=== PATIENT | female | born 1950 | race Caucasian/White ===

== ENCOUNTER 2019-03-24 18:38 | Emergency (ER) | payer OTHER, BC ==
--- NOTE | 2019-03-24 19:01 | ER ---
Nurse's Notes [facility] Name: Stefanie Schofield Age: 68 yrs Sex: Female : 1950 Arrival Date: 03/24/2019 Time: 18:40 Bed 24 Private MD: Diagnosis: Cerebral infarction;Aphasia following cerebral infarction;Type 2 diabetes mellitus;Essential (primary) hypertension Presentation: 03/24 18:41 Presenting complaint: Patient states: i cant remember Child states: on Thursday evening tw2 when she got off work at 10pm she seemed off, today she called me about 1pm and she was saying that she wasn't going to work, my daughter said she was down yesterday not perky, and then today at 5pm i went by there and she cant get her thought out, left cerebellar stroke 3 years ago. Transition of care: patient was not received from another setting of care. Onset of symptoms was March 24, 2019. Risk Assessment: Do you want to hurt yourself or someone else? Patient reports no desire to harm self or others. Initial Sepsis Screen: Does the patient meet any 2 criteria? No. Patient's initial sepsis screen is negative. Does the patient have a suspected source of infection? No. Patient's initial sepsis screen is negative. Care prior to arrival: None. 18:41 Method Of Arrival: Ambulatory tw2 18:41 Acuity: ALDO 2 tw2 18:53 Presenting complaint: Child states: to me her face looks different like her right side tw2 is swollen, i am going to call my daughter and see if she can give me more specifics on how she was today and when the difficult getting her words out started. and again her stroke 3 years ago did not present as your typical stroke. Triage Assessment: 18:44 General: Appears in no apparent distress. well groomed, Behavior is cooperative. Pain: tw2 Denies pain. Neuro: Reports "trouble getting my words out". Historical: - Allergies: 18:45 Codeine; tw2 - Home Meds: 18:45 Congress Thyroid 60 mg Oral tab daily [Active]; tw2 18:58 furosemide 40 mg Oral tab 1 tab 2 times per day [Active]; clonidine HCl 0.2 mg Oral tab tw2 1 tab 3 times per day [Active]; Prevacid 15 mg Oral cpDR 1 cap once daily [Active]; aspirin 81 mg Oral chew 1 tab once daily [Active]; glimepiride 4 mg Oral tab 1 tab once daily [Active]; gabapentin 300 mg oral cap 1 cap 3 times per day [Active]; lisinopril 40 mg Oral tab 1 tab once daily [Active]; atenolol 100 mg Oral tab 1 tab once daily [Active]; potassium chloride 10 mEq Oral cpER 1 cap once daily [Active]; diltiazem HCl 120 mg Oral CDER 1 cap once daily [Active]; - PMHx: 18:45 Back pain; Diabetes - NIDDM; Hypertension; tw2 - Immunization history:: Adult Immunizations. - Social history:: Smoking status: . - Ebola Screening: : Patient denies travel to an Ebola-affected area in the 21 days before illness onset. - Family history:: not pertinent. Screenin:55 Abuse screen: Denies threats or abuse. Nutritional screening: No deficits noted. tw2 Tuberculosis screening: No symptoms or risk factors identified. Fall Risk Secondary diagnosis (15 points) impaired mobility. 19:25 Patient has been NPO before screening. The patient is alert, able to follow commands. mg2 The patient exhibits slurred or garbled speech. The patient is exhibiting difficulty speaking. The patient does not exhibit difficulty understanding words. The patient is able to swallow own secretions with no drooling or need for suction. Patient tolerated one teaspoon of water. No drooling, immediate coughing, gurgling, or clearing of the throat was noted. The patient tolerated 90mL of water. No drooling, immediate coughing, gurgling, or clearing of the throat was noted. The patient passed the bedside swallow screening. Oral medications may be given as ordered. Contact Physician for further diet orders. Provider notified of bedside swallow screening results: Christiano Alex MD. Assessment: 18:49 Reassessment: pt transported to CT via stretcher with SHAWN Reynoso at this time. tw2 19:42 General: Appears in no apparent distress. comfortable, Behavior is calm, cooperative. mg2 Pain: Denies pain. Neuro: Level of Consciousness is awake, alert, obeys commands, Oriented to person, place, time, situation. Neuro: Liability Analyst are equal bilaterally Speech is slurred, with expressive aphasia noted, Facial droop on right, Intact. Cardiovascular: Capillary refill < 3 seconds Patient's skin is warm and dry. Respiratory: Airway is patent Respiratory effort is even, unlabored, Respiratory pattern is regular, symmetrical. GI: Reports diarrhea. : No signs and/or symptoms were reported regarding the genitourinary system. EENT: No signs and/or symptoms were reported regarding the EENT system. Derm: Skin is intact, is healthy with good turgor, Skin is pink, warm \\T\\ dry. normal. Musculoskeletal: Circulation, motion, and sensation intact. Capillary refill < 3 seconds. 19:52 Reassessment: patient sent to ct scan for ct angio via stretcher. mg2 20:15 Reassessment: Patient appears in no apparent distress at this time. Patient and/or mg2 family updated on plan of care and expected duration. Pain level reassessed. Patient is alert, oriented x 3, equal unlabored respirations, skin warm/dry/pink. 21:00 Reassessment: Patient appears in no apparent distress at this time. Patient and/or mg2 family updated on plan of care and expected duration. Pain level reassessed. Patient is alert, oriented x 3, equal unlabored respirations, skin warm/dry/pink. report given to SHAWN Regan of [facility] [id number]. transfer form signed by the daughter and informed about the waiting time of at least 3 hours for the ambulance to come and pick her up. Patient denies pain at this time. 21:52 Reassessment: Patient appears in no apparent distress at this time. Patient and/or mg2 family updated on plan of care and expected duration. Pain level reassessed. Patient is alert, oriented x 3, equal unlabored respirations, skin warm/dry/pink. Vital Signs: 18:43 BP 209 / 83; Pulse 68; Resp 17; Temp 98.1(O); Pulse Ox 100% on R/A; Weight 77.11 kg; tw2 Pain 0/10; 19:30 BP 199 / 81; Pulse 68; Resp 18; Pulse Ox 100% on R/A; mg2 20:47 BP 189 / 61; Pulse 67; Resp 18; Pulse Ox 100% on R/A; mg2 21:46 BP 197 / 65; Pulse 63; Resp 18; Temp 98(O); Pulse Ox 99% on R/A; Pain 0/10; mg2 NIH Stroke Scale Scores: 19:07 NIHSS Score: 2 rishabh 19:15 NIHSS Score: 3 mg2 19:43 NIHSS Score: 3 rishabh ED Course: 18:40 Patient arrived in ED. mr 18:43 Triage completed. tw2 18:44 Arm band placed on. tw2 18:45 Placed in gown. Bed in low position. Call light in reach. Adult w/ patient. tw2 18:51 Christiano Alex MD is Attending Physician. rishabh 18:57 CT Stroke Brain w/o Contrast Sent. tr5 19:00 Inserted saline lock: 20 gauge in right forearm, using aseptic technique. Blood mg2 collected. 19:03 EKG done, by ED staff, reviewed by Christiano Alex MD. Patient maintains SpO2 saturation jp3 greater than 95% on room air. 19:05 Carl Gomez, RN is Primary Nurse. mg2 19:05 XRAY Chest (1 view) Sent. tr5 19:12 Side rails up X 1. Side rails up X2. Verbal reassurance given. monitor car operator on. jp3 Pulse ox on. NIBP on. 19:43 No provider procedures requiring assistance completed. mg2 20:08 CT completed. Patient tolerated procedure well. Patient moved to CT via stretcher. eh Patient moved back from CT. 21:50 Report given to SHAWN Foster. mg2 21:50 Patient transferred, IV remains in place. mg2 Administered Medications: 19:14 Drug: NS 0.9% 1000 ml Route: IV; Rate: 1 bolus; Site: right antecubital; tr5 21:11 Follow up: Response: No adverse reaction; IV Status: Completed infusion; IV Intake: mg2 1000ml 19:15 Drug: foLIC Acid 1 mg Route: IVPB; Site: right antecubital; tr5 21:12 Follow up: Response: No adverse reaction; IV Status: Completed infusion mg2 19:27 Drug: Aspirin Chewable Tablet 162 mg Route: PO; tr5 21:11 Follow up: Response: No adverse reaction mg2 19:27 Drug: PlaVIX 75 mg Route: PO; tr5 21:11 Follow up: Response: No adverse reaction mg2 19:39 Drug: Insulin Regular Human 6 units {Co-Signature: mg2 (Carl Gomez RN).} Route: tr5 Sub-Q; Site: right upper arm; 21:09 Follow up: Response: No adverse reaction; Blood sugar is lowered mg2 19:40 Drug: Insulin Regular Human 5 units {Co-Signature: mg2 (Carl Gomez RN).} Route: tr5 IVP; Site: right antecubital; 21:10 Follow up: Response: No adverse reaction; Blood sugar is lowered mg2 21:10 Drug: NS 0.9% 1000 ml Route: IV; Rate: 125 ml/hr; Site: right forearm; mg2 21:45 Drug: Rocephin 1 grams Route: IV; Rate: per protocol; Site: right forearm; mg2 Intake: 21:11 IV: 1000ml; Total: 1000ml. mg2 Outcome: 19:01 ER care complete, transfer ordered by MD. [facility] 22:12 Transferred by [facility] to [facility], Transfer form completed. tr5 22:12 Condition: stable 22:12 Instructed on the need for transfer. 22:14 Patient left the ED. tr5 NIH Stroke Scale - NIH Stroke Score Date: 03/24/2019 Time: 19:07 Total Score = 2 1a. Level of Consciousness (LOC) - 0(Alert) 1b. Level of Consciousness (LOC) (Year \\T\\ Age) - 0(Both) 1c. LOC Commands (Open \\T\\ Closes Eyes/Gasser Machine Operator) - 0(Both) 2. Best Gaze (Lateral Gaze Paresis) - 0(Normal) 3. Visual Field Loss - 0(No visual loss) 4. Facial Palsy - 0(Normal) 5a. Left Arm: Motor (10-second hold) - 0(No drift) 5b. Right Arm: Motor (10-second hold) - 0(No drift) 6a. Left Leg: Motor (5-second hold - always test supine) - 0(No drift) 6b. Right Leg: Motor (5-second hold - always test supine) - 0(No drift) 7. Limb Ataxia (finger/nose \\T\\ heel/moore - test with eyes open) - 0(Absent) 8. Sensory Loss (pinprick arms/legs/face) - 0(Normal) 9. Best Language: Aphasia (description/naming/reading) - 1(Mild to moderate aphasia) 10. Dysarthria (speech clarity - read or repeat words) - 1(Mild to Moderate) 11. Extinction and Inattention (visual/tactile/auditory/spatial/personal) - 0(No abnormality) Initials: [facility] NIH Stroke Scale - NIH Stroke Score Date: 03/24/2019 Time: 19:15 Total Score = 3 1a. Level of Consciousness (LOC) - 0(Alert) 1b. Level of Consciousness (LOC) (Year \\T\\ Age) - 0(Both) 1c. LOC Commands (Open \\T\\ Closes Eyes/Gasser Machine Operator) - 0(Both) 2. Best Gaze (Lateral Gaze Paresis) - 0(Normal) 3. Visual Field Loss - 0(No visual loss) 4. Facial Palsy - 1(Minor Paralysis) 5a. Left Arm: Motor (10-second hold) - 0(No drift) 5b. Right Arm: Motor (10-second hold) - 0(No drift) 6a. Left Leg: Motor (5-second hold - always test supine) - 0(No drift) 6b. Right Leg: Motor (5-second hold - always test supine) - 0(No drift) 7. Limb Ataxia (finger/nose \\T\\ heel/moore - test with eyes open) - 0(Absent) 8. Sensory Loss (pinprick arms/legs/face) - 0(Normal) 9. Best Language: Aphasia (description/naming/reading) - 1(Mild to moderate aphasia) 10. Dysarthria (speech clarity - read or repeat words) - 1(Mild to Moderate) 11. Extinction and Inattention (visual/tactile/auditory/spatial/personal) - 0(No abnormality) [place] [facility] [place] Stroke Scale - NIH Stroke Score Date: 03/24/2019 Time: 19:43 Total Score = 3 1a. Level of Consciousness (LOC) - 0(Alert) 1b. Level of Consciousness (LOC) (Year \\T\\ Age) - 0(Both) 1c. LOC Commands (Open \\T\\ Closes Eyes/Gasser Machine Operator) - 0(Both) 2. Best Gaze (Lateral Gaze Paresis) - 0(Normal) 3. Visual Field Loss - 0(No visual loss) 4. Facial Palsy - 1(Minor Paralysis) 5a. Left Arm: Motor (10-second hold) - 0(No drift) 5b. Right Arm: Motor (10-second hold) - 0(No drift) 6a. Left Leg: Motor (5-second hold - always test supine) - 0(No drift) 6b. Right Leg: Motor (5-second hold - always test supine) - 0(No drift) 7. Limb Ataxia (finger/nose \\T\\ heel/moore - test with eyes open) - 0(Absent) 8. Sensory Loss (pinprick arms/legs/face) - 0(Normal) 9. Best Language: Aphasia (description/naming/reading) - 1(Mild to moderate aphasia) 10. Dysarthria (speech clarity - read or repeat words) - 1(Mild to Moderate) 11. Extinction and Inattention (visual/tactile/auditory/spatial/personal) - 0(No abnormality) Initials: [facility] Signatures: Christiano Alex MD MD cha Rivera, Louise mr Gay, Rosario Travis RN RN tw2 Carl Gomez RN RN mg2 Jaxon Vincent jp3 Cristian Salinas RN RN tr5 Carl Gomez RN mg2 Corrections: (The following items were deleted from the chart) 19:50 19:49 Patient has been NPO before screening. The patient is alert, able to mg2 follow commands. The patient exhibits slurred or garbled speech. The patient is exhibiting difficulty speaking. The patient does not exhibit difficulty understanding words. The patient is able to swallow own secretions with no drooling or need for suction. Patient tolerated one teaspoon of water. No drooling, immediate coughing, gurgling, or clearing of the throat was noted. The patient tolerated 90mL of water. No drooling, immediate coughing, gurgling, or clearing of the throat was noted. The patient passed the bedside swallow screening. Oral medications may be given as ordered. Contact Physician for further diet orders. Provider notified of bedside swallow screening results: Christiano Alex MD mg2
--- NOTE | 2019-03-24 19:02 | EDPHYS ---
Physician Documentation [facility] Name: Stefanie Schofield Age: 68 yrs Sex: Female : 1950 Arrival Date: 03/24/2019 Time: 18:40 Bed 24 Private MD: ED Physician Christiano Alex HPI: 03/24 18:55 This 68 yrs old Female presents to ER via Ambulatory with complaints of rishabh Trouble Talking. 18:55 The patient presents to the emergency department with a speech or higher order brain rishabh function problem, aphasia. Onset: The symptoms/episode began/occurred 4 day(s) ago. Context: occurred at an unknown location. Associated signs and symptoms: The patient has no apparent associated signs or symptoms. Severity of symptoms: At their worst the symptoms were moderate in the emergency department the symptoms are unchanged. Patient's baseline: Neuro: alert and fully oriented. The patient has not experienced similar symptoms in the past. Historical: - Allergies: 18:45 Codeine; tw2 - Home Meds: 18:45 [place] Thyroid 60 mg Oral tab daily [Active]; tw2 18:58 furosemide 40 mg Oral tab 1 tab 2 times per day [Active]; clonidine HCl 0.2 mg Oral tab tw2 1 tab 3 times per day [Active]; Prevacid 15 mg Oral cpDR 1 cap once daily [Active]; aspirin 81 mg Oral chew 1 tab once daily [Active]; glimepiride 4 mg Oral tab 1 tab once daily [Active]; gabapentin 300 mg oral cap 1 cap 3 times per day [Active]; lisinopril 40 mg Oral tab 1 tab once daily [Active]; atenolol 100 mg Oral tab 1 tab once daily [Active]; potassium chloride 10 mEq Oral cpER 1 cap once daily [Active]; diltiazem HCl 120 mg Oral CDER 1 cap once daily [Active]; - PMHx: 18:45 Back pain; Diabetes - NIDDM; Hypertension; tw2 - Immunization history:: Adult Immunizations. - Social history:: Smoking status: . - Ebola Screening: : Patient denies travel to an Ebola-affected area in the 21 days before illness onset. - Family history:: not pertinent. ROS: 18:55 Constitutional: Negative for fever, chills, and weight loss, Eyes: Negative for injury, rishabh pain, redness, and discharge, ENT: Negative for injury, pain, and discharge, Neck: Negative for injury, pain, and swelling, Cardiovascular: Negative for chest pain, palpitations, and edema, Respiratory: Negative for shortness of breath, cough, wheezing, and pleuritic chest pain, Abdomen/GI: Negative for abdominal pain, nausea, vomiting, diarrhea, and constipation, Back: Negative for injury and pain, : Negative for injury, bleeding, discharge, and swelling, MS/Extremity: Negative for injury and deformity, Skin: Negative for injury, rash, and discoloration, Psych: Negative for depression, anxiety, suicide ideation, homicidal ideation, and hallucinations, Allergy/Immunology: Negative for hives, rash, and allergies, Endocrine: Negative for neck swelling, polydipsia, polyuria, polyphagia, and marked weight changes, Hematologic/Lymphatic: Negative for swollen nodes, abnormal bleeding, and unusual bruising. 18:55 Neuro: Positive for speech changes. Exam: 18:55 Constitutional: This is a well developed, well nourished patient who is awake, alert, rishabh and in no acute distress. Head/Face: Normocephalic, atraumatic. Eyes: Pupils equal round and reactive to light, extra-ocular motions intact. Lids and lashes normal. Conjunctiva and sclera are non-icteric and not injected. Cornea within normal limits. Periorbital areas with no swelling, redness, or edema. ENT: Nares patent. No nasal discharge, no septal abnormalities noted. Tympanic membranes are normal and external auditory canals are clear. Oropharynx with no redness, swelling, or masses, exudates, or evidence of obstruction, uvula midline. Mucous membranes moist. Neck: Trachea midline, no thyromegaly or masses palpated, and no cervical lymphadenopathy. Supple, full range of motion without nuchal rigidity, or vertebral point tenderness. No Meningismus. Chest/axilla: Normal chest wall appearance and motion. Nontender with no deformity. No lesions are appreciated. Cardiovascular: Regular rate and rhythm with a normal S1 and S2. No gallops, murmurs, or rubs. Normal PMI, no JVD. No pulse deficits. Respiratory: Lungs have equal breath sounds bilaterally, clear to auscultation and percussion. No rales, rhonchi or wheezes noted. No increased work of breathing, no retractions or nasal flaring. Abdomen/GI: Soft, non-tender, with normal bowel sounds. No distension or tympany. No guarding or rebound. No evidence of tenderness throughout. Back: No spinal tenderness. No costovertebral tenderness. Full range of motion. Female : Normal external genitalia. Skin: Warm, dry with normal turgor. Normal color with no rashes, no lesions, and no evidence of cellulitis. MS/ Extremity: Pulses equal, no cyanosis. Neurovascular intact. Full, normal range of motion. Psych: Awake, alert, with orientation to person, place and time. Behavior, mood, and affect are within normal limits. 18:55 Neuro: Orientation: is normal, appropriate for stated age, no acute changes, Mentation: is normal, appropriate for stated age, no acute changes, Memory: is normal, appropriate for stated age, no acute changes, Cranial nerves: grossly normal, is grossly normal based on the patient's age, no acute changes, Cerebellar function: is grossly normal, is grossly normal based on the patient's age, Motor: is normal, is grossly normal based on the patient's age, no acute changes, moves all fours, Sensation: is normal, Gait: not applicable seizure activity, is not displayed by the patient. Vital Signs: 18:43 BP 209 / 83; Pulse 68; Resp 17; Temp 98.1(O); Pulse Ox 100% on R/A; Weight 77.11 kg; tw2 Pain 0/10; 19:30 BP 199 / 81; Pulse 68; Resp 18; Pulse Ox 100% on R/A; mg2 20:47 BP 189 / 61; Pulse 67; Resp 18; Pulse Ox 100% on R/A; mg2 21:46 BP 197 / 65; Pulse 63; Resp 18; Temp 98(O); Pulse Ox 99% on R/A; Pain 0/10; mg2 NIH Stroke Scale Scores: 19:07 NIHSS Score: 2 rishabh 19:15 NIHSS Score: 3 mg2 19:43 NIHSS Score: 3 rishabh MDM: 18:53 Patient medically screened. rishabh 18:58 Data reviewed: vital signs, nurses notes, lab test result(s), EKG, radiologic studies, rishabh CT scan, strok symptoms begn Thursday, worse today. 19:44 ED course: neuro md at [facility], no tpa,window greater than 2 days. [facility] 03/24 18:52 Order name: Basic Metabolic Panel [facility] 03/24 18:52 Order name: CBC with Diff [facility] 03/24 18:52 Order name: LFT's [facility] 03/24 18:52 Order name: Magnesium [facility] 03/24 18:52 Order name: NT PRO-BNP [facility] 03/24 18:52 Order name: PT-INR [facility] 03/24 18:52 Order name: Troponin (emerg Dept Use Only) [facility] 03/24 18:52 Order name: Ptt, Activated [facility] 03/24 19:12 Order name: CBC with Automated Diff; Complete Time: 19:16 [facility] 03/24 19:16 Order name: Glucose, Ancillary Testing; Complete Time: 19:16 [facility] 03/24 19:22 Order name: Protime (+INR); Complete Time: 19:23 [facility] 03/24 19:22 Order name: PTT, Activated Partial Thromb; Complete Time: 19:23 [facility] 03/24 19:30 Order name: Basic Metabolic Panel; Complete Time: 19:34 [facility] 03/24 19:30 Order name: Liver (Hepatic) Function; Complete Time: 19:34 [facility] 03/24 18:52 Order name: XRAY Chest (1 view) [facility] 03/24 18:52 Order name: CT Stroke Brain w/o Contrast [facility] 03/24 19:19 Order name: CT; Complete Time: 19:21 [facility] 03/24 19:30 Order name: Troponin (Emerg Dept Use Only); Complete Time: 19:34 [facility] 03/24 19:30 Order name: NT PRO-BNP; Complete Time: 19:34 [facility] 03/24 19:30 Order name: Magnesium; Complete Time: 19:34 [facility] 03/24 19:36 Order name: CT Head Angio [facility] 03/24 19:43 Order name: RAD; Complete Time: 19:57 [facility] 03/24 20:06 Order name: Urine Culture [facility] 03/24 20:42 Order name: CT [facility] 03/24 21:01 Order name: Glucose, Ancillary Testing [facility] 03/24 18:52 Order name: EKG; Complete Time: 18:54 [facility] 03/24 18:52 Order name: Cardiac monitoring; Complete Time: 19:05 [facility] 03/24 18:52 Order name: EKG - Nurse/Tech; Complete Time: 19:04 [facility] 03/24 18:52 Order name: IV Saline Lock; Complete Time: 19:05 [facility] 03/24 18:52 Order name: Labs collected and sent; Complete Time: 19:05 [facility] 03/24 18:52 Order name: O2 Per Protocol; Complete Time: 19:05 [facility] 03/24 18:52 Order name: O2 Sat Monitoring; Complete Time: 19:05 [facility] 03/24 18:52 Order name: Accucheck; Complete Time: 19:04 [facility] 03/24 18:52 Order name: NPO; Complete Time: 19:04 [facility] 03/24 18:52 Order name: Stroke Swallow Screen; Complete Time: 19:15 [facility] Administered Medications: 19:14 Drug: NS 0.9% 1000 ml Route: IV; Rate: 1 bolus; Site: right antecubital; tr5 21:11 Follow up: Response: No adverse reaction; IV Status: Completed infusion; IV Intake: mg2 1000ml 19:15 Drug: foLIC Acid 1 mg Route: IVPB; Site: right antecubital; tr5 21:12 Follow up: Response: No adverse reaction; IV Status: Completed infusion mg2 19:27 Drug: Aspirin Chewable Tablet 162 mg Route: PO; tr5 21:11 Follow up: Response: No adverse reaction mg2 19:27 Drug: PlaVIX 75 mg Route: PO; tr5 21:11 Follow up: Response: No adverse reaction mg2 19:39 Drug: Insulin Regular Human 6 units {Co-Signature: mg2 (Carl Gomez RN).} Route: tr5 Sub-Q; Site: right upper arm; 21:09 Follow up: Response: No adverse reaction; Blood sugar is lowered mg2 19:40 Drug: Insulin Regular Human 5 units {Co-Signature: mg2 (Carl Gomez RN).} Route: tr5 IVP; Site: right antecubital; 21:10 Follow up: Response: No adverse reaction; Blood sugar is lowered mg2 21:10 Drug: NS 0.9% 1000 ml Route: IV; Rate: 125 ml/hr; Site: right forearm; mg2 21:45 Drug: Rocephin 1 grams Route: IV; Rate: per protocol; Site: right forearm; mg2 Disposition: 03/24/19 19:01 Transfer ordered to [facility]. Diagnosis are Cerebral infarction, Aphasia following cerebral infarction, Type 2 diabetes mellitus, Essential (primary) hypertension. - Reason for transfer: Higher level of care. - Accepting physician is to [facility], stroke team. - Condition is Stable. - Problem is new. - Symptoms have improved. NIH Stroke Scale - NIH Stroke Score Date: 03/24/2019 Time: 19:07 Total Score = 2 1a. Level of Consciousness (LOC) - 0(Alert) 1b. Level of Consciousness (LOC) (Year \T\ Age) - 0(Both) 1c. LOC Commands (Open \T\ Closes Eyes/Customer Assistant) - 0(Both) 2. Best Gaze (Lateral Gaze Paresis) - 0(Normal) 3. Visual Field Loss - 0(No visual loss) 4. Facial Palsy - 0(Normal) 5a. Left Arm: Motor (10-second hold) - 0(No drift) 5b. Right Arm: Motor (10-second hold) - 0(No drift) 6a. Left Leg: Motor (5-second hold - always test supine) - 0(No drift) 6b. Right Leg: Motor (5-second hold - always test supine) - 0(No drift) 7. Limb Ataxia (finger/nose \T\ heel/moore - test with eyes open) - 0(Absent) 8. Sensory Loss (pinprick arms/legs/face) - 0(Normal) 9. Best Language: Aphasia (description/naming/reading) - 1(Mild to moderate aphasia) 10. Dysarthria (speech clarity - read or repeat words) - 1(Mild to Moderate) 11. Extinction and Inattention (visual/tactile/auditory/spatial/personal) - 0(No abnormality) Initials: [facility] NIH Stroke Scale - NIH Stroke Score Date: 03/24/2019 Time: 19:15 Total Score = 3 1a. Level of Consciousness (LOC) - 0(Alert) 1b. Level of Consciousness (LOC) (Year \T\ Age) - 0(Both) 1c. LOC Commands (Open \T\ Closes Eyes/Customer Assistant) - 0(Both) 2. Best Gaze (Lateral Gaze Paresis) - 0(Normal) 3. Visual Field Loss - 0(No visual loss) 4. Facial Palsy - 1(Minor Paralysis) 5a. Left Arm: Motor (10-second hold) - 0(No drift) 5b. Right Arm: Motor (10-second hold) - 0(No drift) 6a. Left Leg: Motor (5-second hold - always test supine) - 0(No drift) 6b. Right Leg: Motor (5-second hold - always test supine) - 0(No drift) 7. Limb Ataxia (finger/nose \T\ heel/moore - test with eyes open) - 0(Absent) 8. Sensory Loss (pinprick arms/legs/face) - 0(Normal) 9. Best Language: Aphasia (description/naming/reading) - 1(Mild to moderate aphasia) 10. Dysarthria (speech clarity - read or repeat words) - 1(Mild to Moderate) 11. Extinction and Inattention (visual/tactile/auditory/spatial/personal) - 0(No abnormality) Initials: mg2 NIH Stroke Scale - NIH Stroke Score Date: 03/24/2019 Time: 19:43 Total Score = 3 1a. Level of Consciousness (LOC) - 0(Alert) 1b. Level of Consciousness (LOC) (Year \T\ Age) - 0(Both) 1c. LOC Commands (Open \T\ Closes Eyes/Customer Assistant) - 0(Both) 2. Best Gaze (Lateral Gaze Paresis) - 0(Normal) 3. Visual Field Loss - 0(No visual loss) 4. Facial Palsy - 1(Minor Paralysis) 5a. Left Arm: Motor (10-second hold) - 0(No drift) 5b. Right Arm: Motor (10-second hold) - 0(No drift) 6a. Left Leg: Motor (5-second hold - always test supine) - 0(No drift) 6b. Right Leg: Motor (5-second hold - always test supine) - 0(No drift) 7. Limb Ataxia (finger/nose \T\ heel/moore - test with eyes open) - 0(Absent) 8. Sensory Loss (pinprick arms/legs/face) - 0(Normal) 9. Best Language: Aphasia (description/naming/reading) - 1(Mild to moderate aphasia) 10. Dysarthria (speech clarity - read or repeat words) - 1(Mild to Moderate) 11. Extinction and Inattention (visual/tactile/auditory/spatial/personal) - 0(No abnormality) Initials: rishabh Signatures: Dispatcher [employer] EDChristiano Mack MD MD cha Wise, Tara RN RN tw2 Carl Gomez RN RN mg2 Cristian Salinas RN RN tr5 Carl Gomez RN mg2 Corrections: (The following items were deleted from the chart) 19:18 19:01 03/24/2019 19:01 Transfer ordered to [facility]. rishabh Diagnosis is Cerebral infarction; Aphasia following cerebral infarction. Reason for transfer: Higher level of care. Accepting physician is to [facility], stroke team. Condition is Stable. Problem is new. Symptoms have improved. rishabh 19:18 19:18 03/24/2019 19:01 Transfer ordered to [facility]. rishabh Diagnosis is Cerebral infarction; Aphasia following cerebral infarction; Type 2 diabetes mellitus. Reason for transfer: Higher level of care. Accepting physician is to [facility], stroke team. Condition is Stable. Problem is new. Symptoms have improved. rishabh 22:14 19:18 03/24/2019 19:01 Transfer ordered to [facility]. tr5 Diagnosis is Cerebral infarction; Aphasia following cerebral infarction; Type 2 diabetes mellitus; Essential (primary) hypertension. Reason for transfer: Higher level of care. Accepting physician is to [facility], stroke team. Condition is Stable. Problem is new. Symptoms have improved. rishabh
[2019-03-24] MEDS ORDERED: FOLIC ACID 5 MG/ML VIAL ONE (19:10)
[2019-03-24] MEDS ORDERED: NA CHLORIDE 0.9% 1,000 ML ONE (19:10)
[2019-03-24 19:11] LABS: Absolute Lymphocytes (CBC) 1.7 K/uL (0.7-4.9); Basophils % 0.5 % (0-1.3); Hematocrit 46.9 % (36.0-45.0); Lymphocytes % 17.3 % (15.3-44.8); MPV 11.4 fL (7.6-11.3); RBC Red Blood Cell Count 5.12 M/uL (3.86-4.86)
--- NOTE | 2019-03-24 19:12 | RAD REPORT ---
EXAM DESCRIPTION: CT - Ct Stroke Brain Wo Cont - 03/24/2019 6:58 pm CLINICAL HISTORY: Confusion/ dizziness COMPARISON: 2016 TECHNIQUE: Computed axial tomography of the head was obtained. All CT scans are performed using dose optimization technique as appropriate and may include automated exposure control or mA/KV adjustment according to patient size. FINDINGS: An intracranial bleed is not seen . The ventricles are normal in caliber. No extra-axial fluid collection is noted. A 4.2 centimeter low-density area within the left cerebellum compatible with old infarction. 2.5 centimeter low-density areas present within the left frontal lobe/anterior left basal ganglia Fluid within the sinuses/ mastoids is not seen. IMPRESSION: 2.5 centimeter low-density area is present within the left frontal lobe/anterior left ba yuly ganglia compatible with infarction. It could be subacute or chronic. Old left cerebellar infarct Doctor Alex of the emergency room was notified at 658 p.m. March 24, 2019
[2019-03-24] MEDS ORDERED: ASPIRIN 81 MG CHEWABLE TABLET ONE (19:18)
[2019-03-24 19:19] LABS: Protime INR 1.05
[2019-03-24] MEDS ORDERED: CLOPIDOGREL 75 MG TABLET ONE (19:19)
[2019-03-24 19:29] LABS: ALT/SGPT 23 U/L (12-78); AST/SGOT 14 U/L (15-37); Albumin 3.1 g/dL (3.4-5.0); Alkaline Phosphatase 118 U/L (45-117); BUN Blood Urea Nitrogen 11 mg/dL (7-18); Bicarbonate 24 mmol/L (21-32); Bilirubin Direct 0.1 mg/dL (0-0.2); Bilirubin Total 0.5 mg/dL (0.2-1.0); Glucose Level 356 mg/dL (74-106); Magnesium 2.1 mg/dL (1.8-2.4); NT PRO-BNP 701 pg/mL (<125); Protein, Total 6.1 g/dL (6.4-8.2); Sodium Level 139 mmol/L (136-145); Troponin (Emerg Dept Use Only) < 0.02 ng/mL (0.0-0.045)
[2019-03-24] MEDS ORDERED: INSULIN -REGULAR HUMAN 50 UNIT/0.5 ML ML ONE (19:33)
--- NOTE | 2019-03-24 19:41 | RAD REPORT ---
EXAM DESCRIPTION: Brayan Single View03/24/2019 7:16 pm CLINICAL HISTORY: cough COMPARISON: 2016 FINDINGS: The lungs appear clear of acute infiltrate. The heart is normal size IMPRESSION: No acute abnormalities displayed
--- NOTE | 2019-03-24 20:40 | RAD REPORT ---
EXAM DESCRIPTION: CTHead angio03/24/2019 8:11 pm CLINICAL HISTORY: Slurred speech COMPARISON: None TECHNIQUE: CT angiogram of the head was obtained. 3D MIPS reconstruction performed. All CT scans are performed using dose optimization technique as appropriate and may include automated exposure control or mA/KV adjustment according to patient size. FINDINGS: Moderate narrowing involves the P1 segment of the left posterior cerebral artery which is chronic The distal aspect of the left vertebral artery is small. Calcified plaque results in moderate narrowing of the cavernous portion of the right carotid artery. Proximal to this within the cavernous portion of the right internal carotid artery is a another area marked narrowing. Moderate narrowing involves the distal right internal carotid artery The basilar, left internal carotid, right posterior cerebral, bilateral anterior cerebral and bilater al middle cerebral arteries do not demonstrate a significant stenosis. An aneurysm is not noted IMPRESSION: Marked narrowing involves the cavernous portion of the right internal carotid artery
[2019-03-24] MEDS ORDERED: CEFTRIAXONE/SWI 1gm 1 GM/10 ML SYR ONE (21:43)
[2019-03-25 05:23] VITALS: BP 197/65; TEMP 98; O2SAT 99
--- NOTE | 2019-03-25 09:40 | EKG ---
Test Date: 2019-03-24 Test Time: 19:01:55 Field Manager: KESHIA MEASUREMENT RESULTS: Intervals: Rate: 64 IL: 158 QRSD: 136 QT: 472 QTc: 486 [place]: P: 54 IL: 158 QRS: 40 T: 50 INTERPRETIVE STATEMENTS: Normal sinus rhythm Right bundle branch block Abnormal ECG Compared to ECG 04/25/2016 20:14:27 No significant changes Electronically Signed On 03-25-19 09:39:37 [employer] by Ruddy Estrada
== END 2019-03-24 22:14 | disposition short-term general hospital (02) ==
LOC: ER 18:38
DX: I63.9 Cerebral infarction, unspecified (principal); R47.01 Aphasia; I10 Essential (primary) hypertension; R29.702 NIHSS score 2; E11.9 Type 2 diabetes mellitus without complications; Z79.82 Long term (current) use of aspirin; Z88.5 Allergy status to narcotic agent
CPT/HCPCS: 96365; 93005; 85025; 80048; 36415; 83735; 85610; 82947 ×2; 80076; 85730; 84484; 83880; 70496; 70450; 71045; 96375; 96372; 99285; 96366; Q9967; J0696; J7030

== ENCOUNTER 2019-10-04 15:31 | Emergency (ER) | payer OTHER, BC ==
[2019-10-04 17:26] LABS: Absolute Lymphocytes (CBC) 2.3 K/uL (0.7-4.9); Hematocrit 45.1 % (36.0-45.0); Lymphocytes % 30.5 % (15.3-44.8); MPV 11.4 fL (7.6-11.3)
[2019-10-04 17:45] LABS: ALT/SGPT 21 U/L (12-78); AST/SGOT 12 U/L (15-37); Albumin 3.2 g/dL (3.4-5.0); Alkaline Phosphatase 102 U/L (45-117); BUN Blood Urea Nitrogen 19 mg/dL (7-18); Bicarbonate 27 mmol/L (21-32); Bilirubin Direct < 0.1 mg/dL (0-0.2); Bilirubin Total 0.4 mg/dL (0.2-1.0); Glucose Level 151 mg/dL (74-106); Lipase 124 U/L (73-393); Potassium 4.2 mmol/L (3.5-5.1); Protein, Total 6.5 g/dL (6.4-8.2); Sodium Level 141 mmol/L (136-145)
[2019-10-04 18:00] LABS: Urine Bacteria <20 /HPF (<20); Urine Culture Reflex Order REFLEXED; Urine RBC <5 /HPF (NONE SEEN)
--- NOTE | 2019-10-04 18:23 | RAD REPORT ---
EXAM DESCRIPTION: CT - Abdomen Pelvis W Contrast - 10/04/2019 6:05 pm CLINICAL HISTORY: ABD PAIN COMPARISON: No comparisons TECHNIQUE: Biphasic, helical CT imaging of the abdomen and pelvis was performed following 100 ml non -ionic IV contrast. No oral contrast given. All CT scans are performed using dose optimization technique as appropriate and may include automated exposure control or mA/KV adjustment according to patient size. FINDINGS: No suspicious findings in the lung bases. The liver, spleen, and pancreas show no suspicious findings. Cholecystectomy clips are present. No bi liary tree dilatation. Small benign-appearing cysts are present in the liver parenchyma. Symmetric renal function is seen with no hydronephrosis or suspicious renal mass. No pyelonephritis o r acute parenchymal process. Small renal cysts are present. Right adrenal gland is negative. Left adr enal gland contains a 16 millimeter mass. This does not meet adrenal adenoma criteria but is still th e most likely etiology. No urinary bladder abnormality. Uterus is absent. Ovaries are absent or atrophic. No adnexal mass. No dilated bowel loops or bowel wall thickening. Patient has a minimal hiatal hernia. No evidence for appendicitis. Appendix is not clearly seen and may be absent. You small mesenteric lymph nodes are p resent. No free air, free fluid or inflammatory stranding. No hernia, mass or bulky lymphadenopathy. Disc and bone degenerative changes are present. Posterior decompression changes are present L4-5. Andria tral canal detail is inherently limited. IMPRESSION: Contrast-enhanced CT abdomen and pelvis imaging shows no acute or emergent finding. An incidental 16 millimeter left adrenal mass is present. This is most likely an adenoma but does not meet the strict diagnostic criteria. In the absence of any malignancy history or significant clinica l history, this can be re-evaluated with CT imaging in 12 months.
--- NOTE | 2019-10-04 18:52 | EDPHYS ---
Physician Documentation [facility] Name: Stefanie Schofield Age: 68 yrs Sex: Female : 1950 Arrival Date: 10/04/2019 Time: 15:38 Bed 26 Private MD: ED Physician Vinh Camacho HPI: 10/03 16:48 This 68 yrs old Female presents to ER via Ambulatory with complaints of pm1 Abdominal Pain. 16:48 The patient presents with abdominal pain in the lower abdomen. Onset: The pm1 symptoms/episode began/occurred 2 month(s) ago. The symptoms do not radiate. Associated signs and symptoms: Pertinent negatives: nausea, vomiting, and diarrhea, chest pain, constipation, dysuria, fever, shortness of breath. The symptoms are described as tightness to lower abdomen, " like pants on to tight". Modifying factors: The symptoms are alleviated by nothing, the symptoms are aggravated by nothing. The patient has not recently seen a physician, due to covid. Patient reports onset of abdominal pain after she was reaching for her cat on July 26. Patient reports history of chronic back pain and has numbness sensation to bilateral anterior hip area due to back pain. After reaching out for her cat she noticed that the pain started to migrate towards her suprapubic area. Patient without any incontinence of bowel or bladder and is able to ambulate. Historical: - Allergies: 15:50 Codeine; tw2 - Home Meds: 15:50 [place] Thyroid 60 mg Oral tab daily [Active]; aspirin 81 mg Oral chew 1 tab once daily tw2 [Active]; atenolol 100 mg Oral tab 1 tab once daily [Active]; clonidine HCl 0.2 mg Oral tab 1 tab 3 times per day [Active]; diltiazem HCl 120 mg Oral CDER 1 cap once daily [Active]; gabapentin 300 mg Oral cap 1 cap 3 times per day [Active]; Prevacid 15 mg Oral cpDR 1 cap once daily [Active]; lisinopril 40 mg Oral tab 1 tab once daily [Active]; potassium chloride 10 mEq Oral cpER 1 cap once daily [Active]; glimepiride 4 mg Oral tab 1 tab once daily [Active]; furosemide 40 mg Oral tab 1 tab 2 times per day [Active]; - PMHx: 15:50 Diabetes - NIDDM; Hypertension; Back pain; CVA; Feb 2019; tw2 - PSHx: 15:50 Hysterectomy; tw2 15:51 Cholecystectomy; tw2 - Immunization history:: Adult Immunizations. - Social history:: Smoking status: . ROS: 16:48 Constitutional: Negative for fever, chills, and weight loss, Neck: Negative for injury, pm1 pain, and swelling, Cardiovascular: Negative for chest pain, palpitations, and edema, Respiratory: Negative for shortness of breath, cough, wheezing, and pleuritic chest pain. 16:48 : Negative for injury, bleeding, discharge, and swelling, MS/Extremity: Negative for injury and deformity, Skin: Negative for injury, rash, and discoloration, Neuro: Negative for headache, weakness, numbness, tingling, and seizure. 16:48 Abdomen/GI: Positive for abdominal pain, of the suprapubic area, Negative for nausea, vomiting, and diarrhea. 16:48 Back: Positive for of the lumbar area, chronic pain. Exam: 16:48 Constitutional: This is a well developed, well nourished patient who is awake, alert, pm1 and in no acute distress. Head/Face: Normocephalic, atraumatic. Neck: Trachea midline, no thyromegaly or masses palpated, and no cervical lymphadenopathy. Supple, full range of motion without nuchal rigidity, or vertebral point tenderness. No Meningismus. Chest/axilla: Normal chest wall appearance and motion. Nontender with no deformity. No lesions are appreciated. 16:48 Back: No spinal tenderness. No costovertebral tenderness. Full range of motion. Skin: Warm, dry with normal turgor. Normal color with no rashes, no lesions, and no evidence of cellulitis. MS/ Extremity: Pulses equal, no cyanosis. Neurovascular intact. Full, normal range of motion. 16:48 Cardiovascular: Exam negative for acute changes, Rate: normal, Rhythm: regular, Pulses: no pulse deficits are appreciated. 16:48 Respiratory: Exam negative for acute changes, respiratory distress, shortness of breath. 16:48 Abdomen/GI: Inspection: abdomen appears normal, Palpation: soft, in all quadrants, mild abdominal tenderness, in the suprapubic area, mass, is not appreciated, rebound tenderness, is not appreciated. 16:48 Neuro: Exam negative for acute changes, Orientation: is normal, Motor: is normal, moves all fours, Sensation: is normal, no obvious gross deficits. Vital Signs: 15:46 BP 192 / 58; Pulse 55; Resp 17; Temp 99.1(TE); Pulse Ox 100% on R/A; Weight 81.65 kg tw2 (R); Height 5 ft. 7 in. (170.18 cm); Pain 3/10; 16:48 BP 192 / 63; Resp 20; Pulse Ox 100% ; da2 19:15 BP 169 / 105; Pulse 60; Resp 18; Pulse Ox 99% on R/A; wh 15:46 Body Mass Index 28.19 (81.65 kg, 170.18 cm) tw2 MDM: 16:28 Patient medically screened. pm1 18:50 Data reviewed: vital signs. Data interpreted: Pulse oximetry: on room air is 100 %. pm1 Interpretation: normal. Counseling: I had a detailed discussion with the patient and/or guardian regarding: the historical points, exam findings, and any diagnostic results supporting the discharge/admit diagnosis, lab results, radiology results, the need for outpatient follow up, to return to the emergency department if symptoms worsen or persist or if there are any questions or concerns that arise at home. 10/03 16:36 Order name: Urine Dipstick--Ancillary (enter results) bd 10/03 16:38 Order name: Basic Metabolic Panel; Complete Time: 18:29 pm1 10/03 16:38 Order name: CBC with Diff; Complete Time: 17:33 pm1 10/03 16:38 Order name: Hepatic Function; Complete Time: 18:29 pm1 10/03 16:38 Order name: Lipase; Complete Time: 18:29 pm1 10/03 16:38 Order name: Urine Microscopic Only; Complete Time: 18:29 pm1 10/03 16:38 Order name: IV Saline Lock; Complete Time: 17:18 pm1 10/03 16:38 Order name: Labs collected and sent; Complete Time: 17:18 pm1 10/03 16:38 Order name: CT Abd/Pelvis - IV Contrast Only; Complete Time: 18:44 pm1 10/03 18:04 Order name: Urine Culture EDMS Administered Medications: 19:09 Not Given (Physician Discretion): Rocephin 1 grams IV at calculated rate once; Given wh slow IV push per pharmacy instructions 19:26 Drug: Rocephin (cefTRIAXone) 1 grams Route: IM; Site: right gluteus; wh 19:36 Follow up: Response: No adverse reaction Disposition: 10/04 13:13 Co-signature as Attending Physician, Vinh Camacho MD I agree with the assessment and kdr plan of care. Disposition: 10/04/19 18:51 Discharged to Home. Impression: Unspecified abdominal pain, Urinary tract infection, site not specified. - Condition is Stable. - Discharge Instructions: Abdominal Pain, Adult, Urinary Tract Infection, Adult. - Prescriptions for Macrobid 100 mg Oral Capsule - take 1 capsule by ORAL route every 12 hours for 10 days; 20 capsule. - Medication Reconciliation Form, Thank You Letter, Antibiotic Education, Prescription Opioid Use form. - Follow up: Emergency Department; When: As needed; Reason: Worsening of condition. Follow up: Private Physician; When: 2 - 3 days; Reason: Recheck today's complaints, Continuance of care, Re-evaluation by your physician. - Problem is new. - Symptoms have improved. Signatures: Dispatcher [employer] EDMS Vinh Camacho MD MD [facility] Mazin Feldman ENTERPRISE APPLICATION ADMINISTRATOR ENTERPRISE APPLICATION ADMINISTRATOR pm1 Rosario Dillon RN RN tw2 Francisco Chiang Corrections: (The following items were deleted from the chart) 10/03 19:36 18:51 10/04/2019 18:51 Discharged to Home. Impression: Unspecified abdominal pain; wh Urinary tract infection, site not specified. Condition is Stable. Forms are Medication Reconciliation Form, Thank You Letter, Antibiotic Education, Prescription Opioid Use. Follow up: Emergency Department; When: As needed; Reason: Worsening of condition. Follow up: Private Physician; When: 2 - 3 days; Reason: Recheck today's complaints, Continuance of care, Re-evaluation by your physician. Problem is new. Symptoms have improved. pm1
--- NOTE | 2019-10-04 18:52 | ER ---
Nurse's Notes [facility] Name: Stefanie Schofield Age: 68 yrs Sex: Female : 1950 Arrival Date: 10/04/2019 Time: 15:38 Bed 26 Private MD: Diagnosis: Unspecified abdominal pain;Urinary tract infection, site not specified Presentation: 10/03 15:46 Chief complaint: Patient states: my stomach starting hurting about the 26 of July, i tw2 had jeans on and thought they were cutting into me but after i took the jeans off it still felt that way, i am bloated, i hurt side to side, the pain was worse Thursday night and my sister said i was going to go somewhere, and my doctor isnt seeing any pts right now, the pain is a constant pressure and it is numb and i need to get checked out since my doctor cant see me right now. Coronavirus screen: Patient denies a cough. Patient denies shortness of breath or difficulty breathing. Patient denies measured and/or subjective temperature greater than 100.4F prior to today's visit. Patient denies travel on a cruise ship or to a country the [facility] currently lists as an affected area. Patient denies contact with known and/or suspected case of COVID-19. Ebola Screen: Patient denies travel to an Ebola-affected area in the 21 days before illness onset. Initial Sepsis Screen: Does the patient meet any 2 criteria? No. Patient's initial sepsis screen is negative. Does the patient have a suspected source of infection? No. Patient's initial sepsis screen is negative. Risk Assessment: Do you want to hurt yourself or someone else? Patient reports no desire to harm self or others. Onset of symptoms was October 04, 2019. 15:46 Method Of Arrival: Ambulatory tw2 15:46 Acuity: ALDO 3 tw2 Triage Assessment: 15:49 General: Appears in no apparent distress. obese, well groomed, Behavior is calm, tw2 cooperative, appropriate for age. Pain: Complains of pain in abdomen. GI: Reports lower abdominal pain, upper abdominal pain. Historical: - Allergies: 15:50 Codeine; tw2 - Home Meds: 15:50 [place] Thyroid 60 mg Oral tab daily [Active]; aspirin 81 mg Oral chew 1 tab once daily tw2 [Active]; atenolol 100 mg Oral tab 1 tab once daily [Active]; clonidine HCl 0.2 mg Oral tab 1 tab 3 times per day [Active]; diltiazem HCl 120 mg Oral CDER 1 cap once daily [Active]; gabapentin 300 mg Oral cap 1 cap 3 times per day [Active]; Prevacid 15 mg Oral cpDR 1 cap once daily [Active]; lisinopril 40 mg Oral tab 1 tab once daily [Active]; potassium chloride 10 mEq Oral cpER 1 cap once daily [Active]; glimepiride 4 mg Oral tab 1 tab once daily [Active]; furosemide 40 mg Oral tab 1 tab 2 times per day [Active]; - PMHx: 15:50 Diabetes - NIDDM; Hypertension; Back pain; CVA; Feb 2019; tw2 - PSHx: 15:50 Hysterectomy; tw 15:51 Cholecystectomy; tw - Immunization history:: Adult Immunizations. - Social history:: Smoking status: . Screenin:00 Abuse screen: Denies threats or abuse. Denies injuries from another. Nutritional wh screening: No deficits noted. Tuberculosis screening: No symptoms or risk factors identified. Fall Risk None identified. Assessment: 19:00 General: Appears in no apparent distress. Behavior is calm, cooperative, appropriate wh for age. Pain: Complains of pain in abdomen Pain does not radiate. Quality of pain is described as aching. Neuro: Level of Consciousness is awake, alert, obeys commands, Oriented to person, place, time, situation, Appropriate for age. Cardiovascular: Heart tones S1 S2. Respiratory: Airway is patent Respiratory effort is even, unlabored, Respiratory pattern is regular, symmetrical, Breath sounds are clear bilaterally. GI: Abdomen is flat, non-distended, Bowel sounds present X 4 quads. Abd is soft and non tender X 4 quads. Reports lower abdominal pain. : No signs and/or symptoms were reported regarding the genitourinary system. EENT: No signs and/or symptoms were reported regarding the EENT system. Derm: Skin is intact, is healthy with good turgor, Skin is pink, warm \T\ dry. normal. Musculoskeletal: Circulation, motion, and sensation intact. Vital Signs: 15:46 BP 192 / 58; Pulse 55; Resp 17; Temp 99.1(TE); Pulse Ox 100% on R/A; Weight 81.65 kg tw2 (R); Height 5 ft. 7 in. (170.18 cm); Pain 3/10; 16:48 BP 192 / 63; Resp 20; Pulse Ox 100% ; da2 19:15 BP 169 / 105; Pulse 60; Resp 18; Pulse Ox 99% on R/A; wh 15:46 Body Mass Index 28.19 (81.65 kg, 170.18 cm) tw2 ED Course: 15:38 Patient arrived in ED. mr 15:48 Triage completed. tw2 15:48 Arm band placed on. tw2 16:28 Mazin Feldman NP is PHCP. pm1 16:28 Vinh Camacho MD is Attending Physician. pm1 17:18 Cecy Arevalo, RN is Primary Nurse. dm5 18:06 CT Abd/Pelvis - IV Contrast Only In Process Unspecified. EDMS 19:00 Patient has correct armband on for positive identification. Placed in gown. Bed in low wh position. Call light in reach. Side rails up X 1. Pulse ox on. NIBP on. 19:29 No provider procedures requiring assistance completed. IV discontinued, intact, wh bleeding controlled, No redness/swelling at site. Administered Medications: 19:09 Not Given (Physician Discretion): Rocephin 1 grams IV at calculated rate once; Given wh slow IV push per pharmacy instructions 19:26 Drug: Rocephin (cefTRIAXone) 1 grams Route: IM; Site: right gluteus; 19:36 Follow up: Response: No adverse reaction Outcome: 18:51 Discharge ordered by . pm1 19:29 Discharged to home ambulatory. 19:29 Condition: stable 19:29 Discharge instructions given to patient, Instructed on discharge instructions, follow up and referral plans. medication usage, POC Demonstrated understanding of instructions, follow-up care, medications, POC Prescriptions given X 1. 19:36 Patient left the ED. Signatures: Dispatcher [employer] EDOH Cecy Arevalo, RN RN dm5 Louise Covarrubias mr FranciaMazin, JOHANNE YOUTH PASTOR pm1 Rosario Dillon RN RN tw2 Francisco Chiang Jabier Beck RN RN da2
[2019-10-04] MEDS ORDERED: CEFTRIAXONE 1000 MG/VIAL ONE (19:16)
[2019-10-04] MEDS ORDERED: WATER FOR INJ,STERILE 10 ML ONE (19:16)
[2019-10-04 19:42] VITALS: TEMP 99.1
[2019-10-04 19:45] VITALS: BP 169/105; O2SAT 99
--- OUTSIDE RECORDS SUMMARY | 2019-10-04 20:00 | XMS REPORT | Clinical Summary ---
:1950 Author Organization [facility] Address [address] [place] [address] Care Team Providers Name Role Phone Jack Ortiz Primary Care Provider Unavailable Allergies Active Allergy Reactions Severity Noted Date Comments Codeine Itching, Rash Medium 04/26/2016 Rash and itchi ng Medications Medication Sig Dispensed Refills Start Date End Date Status thyroid, pork, 30 Take 1 tablet 30 tablet 2 05/19/2016 Active mg Tab (30 mg total) by mouth Every morning on an empty stomach. pantoprazole Take 1 tablet 30 tablet 0 05/19/2016 Ac tive (PROTONIX) 40 MG (40 mg total) tablet by mouth daily. cloNIDine HCl Take 0.2 mg by 0 A ctive (CATAPRES) 0.2 MG mouth 3 tablet (three) times daily. glimepiride Take 4 mg by 0 Activ e (AMARYL) 4 MG mouth 2 (two) tablet times daily. lisinopril Take 40 mg by 0 Activ e (PRINIVIL,ZESTRIL) mouth 2 (two) 40 MG tablet times daily. dilTIAZem Take 120 mg by 0 Activ e (CARDIZEM) 120 MG mouth 2 (two) tablet times daily. furosemide (LASIX) Take 40 mg by 0 Active 40 MG tablet mouth 2 (two) times daily. potassium chloride Take 10 mEq by 0 Active (KLOR-CON) 10 MEQ mouth daily. CR tablet atenolol Take 100 mg by 0 Activ e (TENORMIN) 100 MG mouth 2 (two) tablet times daily. lansoprazole Take 15 mg by 0 Act giovanna (PREVACID) 15 MG mouth daily. capsule aspirin 81 MG EC Take 81 mg by 0 Active tablet mouth daily. senna-docusate Take 1 tablet 30 tablet 0 03/26/2019 03/25/2020 Active (SENOKOT S) 8.6-50 by mouth 2 mg per tablet (two) times daily as needed for Constipation. gabapentin Take 3 30 capsule 0 03/26/2019 Active (NEURONTIN) 100 MG capsules (300 capsule mg total) by mouth 3 (three) times daily. atorvastatin Take 1 tablet 30 tablet 0 03/26/2019 Ac tive (LIPITOR) 80 MG (80 mg total) tablet by mouth nightly For cholesterol, to prevent future stroke. gabapentin Take 300 mg by 0 03/26/2019 Dis continued (NEURONTIN) 100 MG mouth nightly. capsule dilTIAZem (DILACOR Take 120 mg by 0 2018 Discontinued XR) 120 MG 24 hr mouth daily. capsule Active Problems Problem Noted Date Stroke 03/25/2019 Expressive aphasia 03/25/2019 Hypertension 05/18/2016 Leukocytosis 04/28/2016 Erythrocytosis 04/28/2016 Elevated troponin 04/28/2016 Acidemia 04/28/2016 Cerebellar stroke, acute 04/27/2016 Vertigo 04/26/2016 UTI (urinary tract infection) 04/26/2016 Gastroesophageal reflux disease without esophagitis Diabetes type 2, controlled 04/26/2016 Hypothyroid 04/26/2016 Dehydration 04/26/2016 Encounters Date Type Specialty Care Team Description 04/05/2019 Hospital Cardiology [facility], Palpitations Encounter Carri Aguirre MD 04/01/2019 Outside [facility], Palpitation s (Primary Scheduling Carri Aguirre MD Dx) 03/25/2019 Travel 03/24/2019 - Hospital General Internal [facility] Jose schmitz type 2 diabetes mellitus without complication, without long-term current use of insulin (HCC) (Primary Dx); 03/26/2019 Encounter Medicine MD Ruddy Expressive aphasia; Sivakumar Sultana, Essential hypertension; Cerebrovascular accident (CVA), unspecif ied mechanism (HCC) Rosalino Stokes MD after 10/03/2018 Social History Tobacco Use Types Packs/Day Years Used Date Never Smoker Alcohol Use Drinks/Week oz/Week Comments No Sex Assigned at Date Recorded Not on file Job Start Date Occupation Industry Not on file Not on file Not on file Travel History Travel Start Travel End No recent travel history available. Last Filed Vital Signs Vital Sign Reading Time Taken Blood Pressure 144/67 03/26/2019 4:00 PM VISUAL MERCHANDISING COORDINATOR Pulse 59 03/26/2019 4:00 PM VISUAL MERCHANDISING COORDINATOR Temperature 35.8 C (96.5 F) 03/26/2019 4:00 PM VISUAL MERCHANDISING COORDINATOR Respiratory Rate 18 03/26/2019 4:00 PM VISUAL MERCHANDISING COORDINATOR Oxygen Saturation 98% 03/26/2019 4:00 PM VISUAL MERCHANDISING COORDINATOR Inhaled Oxygen Concentration - - Weight 78 kg (172 lb 1 oz) 03/25/2019 12:13 AM VISUAL MERCHANDISING COORDINATOR Height 170.2 cm (5' 7") 03/25/2019 12:13 AM VISUAL MERCHANDISING COORDINATOR Body Mass Index 26.95 03/25/2019 12:13 AM VISUAL MERCHANDISING COORDINATOR Plan of Treatment Not on file Procedures Procedure Name Priority Date/Time Associated Comments Diagnosis RHYTHM STRIP - SCAN 03/30/2019 7:52 AM VISUAL MERCHANDISING COORDINATOR POCT-GLUCOSE METER Routine 03/26/2019 3:57 Resul ts for this PM VISUAL MERCHANDISING COORDINATOR procedure are i n the results section. POCT-GLUCOSE METER Routine 03/26/2019 12:33 Resul ts for this PM VISUAL MERCHANDISING COORDINATOR procedure are i n the results section. POCT-GLUCOSE METER Routine 03/26/2019 8:26 Resul ts for this AM VISUAL MERCHANDISING COORDINATOR procedure are i n the results section. CBC W/PLT COUNT & AUTO Routine 03/26/2019 4:57 R esults for this DIFFERENTIAL AM VISUAL MERCHANDISING COORDINATOR procedure are i n the results section. MAGNESIUM Routine 03/26/2019 4:57 Results for this AM VISUAL MERCHANDISING COORDINATOR procedure are i n the results section. BASIC METABOLIC PANEL Routine 03/26/2019 4:57 Re sults for this (7) AM VISUAL MERCHANDISING COORDINATOR procedure are i n the results section. CBC W/PLT COUNT & AUTO Routine 03/26/2019 4:57 R esults for this DIFFERENTIAL AM VISUAL MERCHANDISING COORDINATOR procedure are i n the results section. POCT-GLUCOSE METER Routine 03/25/2019 11:12 Resul ts for this PM VISUAL MERCHANDISING COORDINATOR procedure are i n the results section. ECHOCARDIOGRAM REPORT - 03/25/2019 9:10 SCAN PM VISUAL MERCHANDISING COORDINATOR POCT-GLUCOSE METER Routine 03/25/2019 8:31 Resul ts for this PM VISUAL MERCHANDISING COORDINATOR procedure are i n the results section. POCT-GLUCOSE METER Routine 03/25/2019 2:59 Resul ts for this PM VISUAL MERCHANDISING COORDINATOR procedure are i n the results section. CT/CTA CAROTID Routine 03/25/2019 12:15 Results f or this PM VISUAL MERCHANDISING COORDINATOR procedure are i n the results section. CTA BRAIN Routine 03/25/2019 12:15 Results for this PM VISUAL MERCHANDISING COORDINATOR procedure are i n the results section. ECG 12-LEAD Routine 03/25/2019 9:49 Results for this AM VISUAL MERCHANDISING COORDINATOR procedure are i n the results section. MR BRAIN WITH & WITHOUT Routine 03/25/2019 8:49 Results for this IV CONTRAST AM VISUAL MERCHANDISING COORDINATOR procedure are i n the results section. POCT-GLUCOSE METER Routine 03/25/2019 7:57 Resul ts for this AM VISUAL MERCHANDISING COORDINATOR procedure are i n the results section. 2D ECHO MODE W/O Routine 03/25/2019 7:37 Results for this DOPPLER AM VISUAL MERCHANDISING COORDINATOR procedure are i n the results section. POCT-GLUCOSE METER Routine 03/25/2019 7:11 Resul ts for this AM VISUAL MERCHANDISING COORDINATOR procedure are i n the results section. C-REACTIVE PROTEIN Routine 03/25/2019 4:38 Resul ts for this AM VISUAL MERCHANDISING COORDINATOR procedure are i n the results section. TROPONIN I Routine 03/25/2019 4:38 Results for this AM VISUAL MERCHANDISING COORDINATOR procedure are i n the results section. LIPID PANEL Routine 03/25/2019 4:38 Results for this AM VISUAL MERCHANDISING COORDINATOR procedure are i n the results section. BASIC METABOLIC PANEL Routine 03/25/2019 4:38 Re sults for this (7) AM VISUAL MERCHANDISING COORDINATOR procedure are i n the results section. CBC W/PLT COUNT & AUTO Routine 03/25/2019 4:07 R esults for this DIFFERENTIAL AM VISUAL MERCHANDISING COORDINATOR procedure are i n the results section. CBC W/PLT COUNT & AUTO Routine 03/25/2019 4:07 R esults for this DIFFERENTIAL AM VISUAL MERCHANDISING COORDINATOR procedure are i n the results section. HEMOGLOBIN A1C Routine 03/25/2019 4:06 Results f or this AM VISUAL MERCHANDISING COORDINATOR procedure are i n the results section. XR CHEST 1 VIEW Routine 03/25/2019 3:45 Results for this PORTABLE/BEDSIDE AM VISUAL MERCHANDISING COORDINATOR procedure a re in the results section. VITAMIN B12 AND FOLATE Routine 03/25/2019 3:44 R esults for this AM VISUAL MERCHANDISING COORDINATOR procedure are i n the results section. TSH/FREE T4 IF Routine 03/25/2019 3:44 Results f or this INDICATED AM VISUAL MERCHANDISING COORDINATOR procedure are i n the results section. PROTHROMBIN TIME/INR Routine 03/25/2019 3:44 Res ults for this AM VISUAL MERCHANDISING COORDINATOR procedure are i n the results section. RPR Routine 03/25/2019 3:43 Results for this AM VISUAL MERCHANDISING COORDINATOR procedure are i n the results section. after 10/03/2018 Results RHYTHM STRIP - SCAN (03/30/2019 7:52 AM VISUAL MERCHANDISING COORDINATOR) Narrative Performed At This result has an attachment that is no t available. POC-Glucose meter (03/26/2019 3:57 PM VISUAL MERCHANDISING COORDINATOR)Only the most recent of8 results within the time period is included. POC-Glucose Meter 278 (H)Comment: : TESTED 70 - 110 mg/dL [facility] [address] [place] [address] [facility], [id number]: Fitness Trainer/Lot Boss ID = [id number] for SWETA SANJUANA Specimen Blood Performing Organization Address City/State/Zipcode Phone Number [address] [phone] CENTER CBC with platelet count + automated diff (03/26/2019 4:57 AM VISUAL MERCHANDISING COORDINATOR)Only the most recent of2 resultswithin the time period is included. WBC 8.1 3.5 - 10.5 K/L [facility] RBC 4.83 3.93 - 5.22 M/L [facility] Hemoglobin 14.6 11.2 - 15.7 GM/DL [facility] Hematocrit 42.3 34.1 - 44.9 % [facility] MCV 87.6 79.4 - 94.8 fL [facility] MCH 30.2 25.6 - 32.2 pg [facility] MCHC 34.5 32.2 - 35.5 GM/DL [facility] RDW 12.0 11.7 - 14.4 % [facility] Platelets 195 150 - 450 K/CU MM [facility] MPV 12.6 (H) 9.4 - 12.3 fL [facility] nRBC 0 0 - 0 /100 WBC [facility] % Neutros 53 % [facility] % Lymphs 34 % [facility] % Monos 10 % [facility] % Eos 2 % [facility] % Baso 1 % [facility] # Neutros 4.25 1.56 - 6.13 K/L [facility] # Lymphs 2.71 1.18 - 3.74 K/L [facility] # Monos 0.78 (H) 0.24 - 0.36 K/L [facility] # Eos 0.19 0.04 - 0.36 K/L [facility] # Baso 0.10 (H) 0.01 - 0.08 K/L [facility] Immature Granulocytes-Relative 1 0 - 1 % C [facility] Specimen Blood Performing Organization Address City/[facility]/Zipcode Phone Number [address] [phone] [place] Magnesium (03/26/2019 4:57 AM VISUAL MERCHANDISING COORDINATOR) Magnesium 1.9Comment: Specimen 1.6 - 2.6 mg/dL [facility] Specimen Blood Performing Organization Address City/[facility]/[place] Phone Number [address] [phone] [place] Basic Metabolic Panel (03/26/2019 4:57 AM VISUAL MERCHANDISING COORDINATOR)Only the most recent of2 results within the time period is included. Sodium 138 136 - 145 meq/L [facility] Potassium 3.5Comment: Specimen 3.5 - 5.1 meq/L [facility] moderately hemolyzed [facility] [address] Chloride 108 (H) 98 - 107 meq/L [facility] CO2 23 22 - 29 meq/L [facility] BUN 7 7 - 21 mg/dL [facility] Creatinine 0.81Comment: Specimen 0.57 - 1.25 mg/dL [facility] moderately hemolyzed [facility] TER Glucose 291 (H) 70 - 105 mg/dL [facility] Calcium 8.4 8.4 - 10.2 mg/dL [facility] EGFR 70Comment: ESTIMATED GFR IS mL/min/1.73 sq m [facility] NOT ACCURATE CREATIN[facility] CLEARANCE IN PREDICTING GLOMERULAR FILTRATION RATE. ESTIMATED GFR IS NOT APPLICABLE FOR DIALYSIS PATIENTS. Specimen Blood Performing Organization Address City/State/Zipcode Phone Number [facility] [address] [place] [address] CENTER ECHOCARDIOGRAM REPORT - SCAN (03/25/2019 9:10 PM VISUAL MERCHANDISING COORDINATOR) Narrative Performed At This result has an attachment that is no t available. CTA carotid (03/25/2019 12:15 PM VISUAL MERCHANDISING COORDINATOR) Specimen Narrative Performed At FINAL REPORT [email or web address] CLINICAL HISTORY: Stroke, follow up TECHNIQUE: Initially, noncontrast head C T images were performed. Contiguous contrast-enhanced axial image s through the neck followed by axial images through the head with co esther and sagittal reformations to assess the arterial circ ulation. 3-D reconstructions were performed using a volume rendered t echnique separately on a workstation. This exam was performed according to the departmental dose optimization program which includes auto mated exposure control, adjustment of the mA and/or kV according to the patient size, and/or use of an iterative reconstruction techn ique. Stenosis evaluation reported in complian ce with NASCET criteria. COMPARISON: MRI brain 03/25/2019, CTA he ad and neck 05/01/2016 FINDINGS: CTA head: Multifocal left border zone acute infarc ts. Remote left cerebellar hemisphere infarct. No acute intracrania l hemorrhage. There is no hydrocephalus or midline shift. The skul l is intact. There is atherosclerosis in the cavernou s ICAs with a short segment severe focal stenosis of the right ICA a t the petrous/cavernous junction. Moderate focal stenosis of the left communicating ICA. Bilateral MCA and CRISTA branches are paten t. Posterior circulation is unremarkable. The major intradural venous sinuses are patent. CTA neck: Great vessel origins: No occlusion or hi gh-grade stenosis. Carotid arteries: No occlusion or high-g rade stenosis. Vertebral arteries: No occlusion or high -grade stenosis. Mild degenerative changes of the cervica l spine. Multinodular thyroid; largest discrete nodule measure s up to 2 cm and should be further evaluated by ultrasound. Mild sc arring of the visualized lung apices. IMPRESSION: 1.Multifocal infarcts in the left cerebr al hemisphere, without hemorrhage. 2.Short segment severe focal stenosis of the right ICA at the petrous/cavernous junction. Moderate foc al stenosis of the left communicating ICA. No intracranial arter ial occlusion. 3.No significant cervical arterial steno sis. Signed: Makenzie Amor MD Report Verified Date/Time:03/25/2019 15:43:37 Procedure Note Interface, External Ris In - 03/25/2019 3:45 PM VISUAL MERCHANDISING COORDINATOR FINAL REPORT CLINICAL HISTORY: Stroke, follow up TECHNIQUE: Initially, noncontrast head C T images were performed. Contiguous contrast-enhanced axial image s through the neck followed by axial images through the head with co esther and sagittal reformations to assess the arterial circ ulation. 3-D reconstructions were performed using a volume rendered t echnique separately on a workstation. This exam was performed according to the departmental dose optimization program which includes auto mated exposure control, adjustment of the mA and/or kV according to the patient size, and/or use of an iterative reconstruction techn ique. Stenosis evaluation reported in complian ce with NASCET criteria. COMPARISON: MRI brain 03/25/2019, CTA he ad and neck 05/01/2016 FINDINGS: CTA head: Multifocal left border zone acute infarc ts. Remote left cerebellar hemisphere infarct. No acute intracrania l hemorrhage. There is no hydrocephalus or midline shift. The skul l is intact. There is atherosclerosis in the cavernou s ICAs with a short segment severe focal stenosis of the right ICA a t the petrous/cavernous junction. Moderate focal stenosis of the left communicating ICA. Bilateral MCA and CRISTA branches are paten t. Posterior circulation is unremarkable. The major intradural venous sinuses are patent. CTA neck: Great vessel origins: No occlusion or hi gh-grade stenosis. Carotid arteries: No occlusion or high-g rade stenosis. Vertebral arteries: No occlusion or high -grade stenosis. Mild degenerative changes of the cervica l spine. Multinodular thyroid; largest discrete nodule measure s up to 2 cm and should be further evaluated by ultrasound. Mild sc arring of the visualized lung apices. IMPRESSION: 1.Multifocal infarcts in the left cerebr al hemisphere, without hemorrhage. 2.Short segment severe focal stenosis of the right ICA at the petrous/cavernous junction. Moderate foc al stenosis of the left communicating ICA. No intracranial arter ial occlusion. 3.No significant cervical arterial steno sis. Signed: Makenzie Amor MD Report Verified Date/Time: 03/25/2019 1 5:43:37 Performing Organization Address City/State/Zipcode Phone Number [email or web address] CTA brain (03/25/2019 12:15 PM VISUAL MERCHANDISING COORDINATOR) Specimen Narrative Performed At FINAL REPORT [email or web address] CLINICAL HISTORY: Stroke, follow up TECHNIQUE: Initially, noncontrast head C T images were performed. Contiguous contrast-enhanced axial image s through the neck followed by axial images through the head with co esther and sagittal reformations to assess the arterial circ ulation. 3-D reconstructions were performed using a volume rendered t echnique separately on a workstation. This exam was performed according to the departmental dose optimization program which includes auto mated exposure control, adjustment of the mA and/or kV according to the patient size, and/or use of an iterative reconstruction techn ique. Stenosis evaluation reported in complian ce with NASCET criteria. COMPARISON: MRI brain 03/25/2019, CTA he ad and neck 05/01/2016 FINDINGS: CTA head: Multifocal left border zone acute infarc ts. Remote left cerebellar hemisphere infarct. No acute intracrania l hemorrhage. There is no hydrocephalus or midline shift. The skul l is intact. There is atherosclerosis in the cavernou s ICAs with a short segment severe focal stenosis of the right ICA a t the petrous/cavernous junction. Moderate focal stenosis of the left communicating ICA. Bilateral MCA and CRISTA branches are paten t. Posterior circulation is unremarkable. The major intradural venous sinuses are patent. CTA neck: Great vessel origins: No occlusion or hi gh-grade stenosis. Carotid arteries: No occlusion or high-g rade stenosis. Vertebral arteries: No occlusion or high -grade stenosis. Mild degenerative changes of the cervica l spine. Multinodular thyroid; largest discrete nodule measure s up to 2 cm and should be further evaluated by ultrasound. Mild sc arring of the visualized lung apices. IMPRESSION: 1.Multifocal infarcts in the left cerebr al hemisphere, without hemorrhage. 2.Short segment severe focal stenosis of the right ICA at the petrous/cavernous junction. Moderate foc al stenosis of the left communicating ICA. No intracranial arter ial occlusion. 3.No significant cervical arterial steno sis. Signed: Makenzie Amor MD Report Verified Date/Time:03/25/2019 15:43:37 Procedure Note Interface, External Ris In - 03/25/2019 3:45 PM VISUAL MERCHANDISING COORDINATOR FINAL REPORT CLINICAL HISTORY: Stroke, follow up TECHNIQUE: Initially, noncontrast head C T images were performed. Contiguous contrast-enhanced axial image s through the neck followed by axial images through the head with co esther and sagittal reformations to assess the arterial circ ulation. 3-D reconstructions were performed using a volume rendered t echnique separately on a workstation. This exam was performed according to the departmental dose optimization program which includes auto mated exposure control, adjustment of the mA and/or kV according to the patient size, and/or use of an iterative reconstruction techn ique. Stenosis evaluation reported in complian ce with NASCET criteria. COMPARISON: MRI brain 03/25/2019, CTA he ad and neck 05/01/2016 FINDINGS: CTA head: Multifocal left border zone acute infarc ts. Remote left cerebellar hemisphere infarct. No acute intracrania l hemorrhage. There is no hydrocephalus or midline shift. The skul l is intact. There is atherosclerosis in the cavernou s ICAs with a short segment severe focal stenosis of the right ICA a t the petrous/cavernous junction. Moderate focal stenosis of the left communicating ICA. Bilateral MCA and CRISTA branches are paten t. Posterior circulation is unremarkable. The major intradural venous sinuses are patent. CTA neck: Great vessel origins: No occlusion or hi gh-grade stenosis. Carotid arteries: No occlusion or high-g rade stenosis. Vertebral arteries: No occlusion or high -grade stenosis. Mild degenerative changes of the cervica l spine. Multinodular thyroid; largest discrete nodule measure s up to 2 cm and should be further evaluated by ultrasound. Mild sc arring of the visualized lung apices. IMPRESSION: 1.Multifocal infarcts in the left cerebr al hemisphere, without hemorrhage. 2.Short segment severe focal stenosis of the right ICA at the petrous/cavernous junction. Moderate foc al stenosis of the left communicating ICA. No intracranial arter ial occlusion. 3.No significant cervical arterial steno sis. Signed: Makenzie Amor MD Report Verified Date/Time: 03/25/2019 1 5:43:37 Performing Organization Address City/[place]/[employer] Phone Number [email or web address] ECG 12 lead (03/25/2019 9:49 AM VISUAL MERCHANDISING COORDINATOR) Specimen Narrative Performed At Ventricular Rate 68 BPM GE MUSE Atrial Rate 68 BPM P-R Interval 168 ms QRS Duration 138 ms Q-T Interval 476 ms QTC Calculation(Bazett) 506 ms P [place] 48 degrees R [place] 9 degrees T [place] -4 degrees Normal sinus rhythm Right bundle branch block Nonspecific ST and T wave abnormality Prolonged QT Abnormal ECG When compared with ECG of 27-APR-2016 19 :07, ST less depressed now inferolateral lead s ST depression andT wave inversion le ss evident in Anterior leads Confirmed by MD SHIPLEY YOCHAI [id number]) on 03/27/2019 4:58:09 PM Procedure Note Interface, External Ris In - 03/27/2019 4:58 PM VISUAL MERCHANDISING COORDINATOR Ventricular Rate 68 BPM Atrial Rate 68 BPM P-R Interval 168 ms QRS Duration 138 ms Q-T Interval 476 ms QTC Calculation(Bazett) 506 ms P [place] 48 degrees R [place] 9 degrees T [place] -4 degrees Normal sinus rhythm Right bundle branch block Nonspecific ST and T wave abnormality Prolonged QT Abnormal ECG When compared with ECG of 27-APR-2016 19 :07, ST less depressed now inferolateral lead s ST depression and T wave inversion less evident in Anterior leads Confirmed by MD SHIPLEY YOCHAI ([id number]) on 03/27/2019 4:58:09 PM Performing Organization Address City/[facility]/[place] Phone Number [email or web address] MR brain without & with IV contrast (03/25/2019 8:49 AM VISUAL MERCHANDISING COORDINATOR) Specimen Narrative Performed At FINAL REPORT GE RIS MRI Brain with and without contrast Clinical History: Stroke Technique: MRI of the brain utilizing ax ial T1, T2, FLAIR, GRE, DWI, sagittal T1; and postgadolinium axial, s agittal, and coronal T1-weighted images. Comparisons: MRI 04/26/2016 Findings: There is acute infarction in the left ce rebral deep white matter. There are small acute cortical infarcts in the left parietal lobe. There is no hemorrhage. There is a chron ic encephalomalacic inferomedial left cerebellar infarct wit h hemosiderin staining. There is no abnormal intracranial enhanc ement or mass. There is mild periventricular and subcortical white ma tter T2 hyperintensity, which is nonspecific but compatible with chron ic microvascular ischemic change. There is mild generalized sulcal prominence without hydrocephalus, midline shift, or apparen t mass effect. There are no extra-axial fluid collections. The crani ocervical junction is preserved. The major intracranial flow-v oids appear patent. IMPRESSION: Acute infarction in the deep left cerebr al white matter and involving the left parietal cortex. No acute hemorrhage. 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 No masslike intracranial enhancement. Signed: John Sheets MD Report Verified Date/Time:03/25/2019 10:38:33 Reading Location: [address] Procedure Note Interface, External Ris In - 03/25/2019 10:40 AM VISUAL MERCHANDISING COORDINATOR FINAL REPORT MRI Brain with and without contrast Clinical History: Stroke Technique: MRI of the brain utilizing ax ial T1, T2, FLAIR, GRE, DWI, sagittal T1; and postgadolinium axial, s agittal, and coronal T1-weighted images. Comparisons: MRI 04/26/2016 Findings: There is acute infarction in the left ce rebral deep white matter. There are small acute cortical infarcts in the left parietal lobe. There is no hemorrhage. There is a chron ic encephalomalacic inferomedial left cerebellar infarct wit h hemosiderin staining. There is no abnormal intracranial enhanc ement or mass. There is mild periventricular and subcortical white ma tter T2 hyperintensity, which is nonspecific but compatible with chron ic microvascular ischemic change. There is mild generalized sulcal prominence without hydrocephalus, midline shift, or apparen t mass effect. There are no extra-axial fluid collections. The crani ocervical junction is preserved. The major intracranial flow-v oids appear patent. IMPRESSION: Acute infarction in the deep left cerebr al white matter and involving the left parietal cortex. No acute hemorrhage. 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 No masslike intracranial enhancement. Signed: John Sheets MD Report Verified Date/Time: 03/25/2019 1 0:38:33 Reading Location: [facility] Performing Organization Address City/State/Zipcode Phone Number [email or web address] 2D Echo W/O Doppler(No Doppler) (03/25/2019 7:37 AM VISUAL MERCHANDISING COORDINATOR) Ejection Fraction [facility] ECHO HEAR TLAB MKCK[facility]ON CPA Specimen Narrative Performed At Transthoracic Echocardiography Report (T TE) [facility] ECHO HEARTLAB [facility] Demographics Patient Name ROXY BOBBY Date of Study 03/25/2019 A [id number] GenderFem avel Visit Number [id number] RaceUnkn own [id number] m Number [id number] Number Date of Birth1950 Referring Physician Rob Jauregui MD Age68 year(s) [employer] Cristobal Roche InterpretingJoseph Ashok farias MD Physician Procedure Type of Study TTE procedure:ECHO2D MODE W/O DOPPLER Indications:Stroke . Clinical History BACK PAIN,DM,HTN Height: 67 inches Weight: 78.02 kg (172 lbs) BSA: 1.9 m^2 BMI: 26.94 kg/m^2 HR: 81 bpm BP: 187/80 mmHg Summary Limited 2D exam (no Doppler) to address study indication. IV saline contrast injection was negative for a PFO (patent foramen ovale) at rest and post Valsalva . The left ventricle is chamber size (by PSLAX dimension) is normal (female - LVIDd 3.8-5.2cm) . All of the LV segments contract normally . Global LV systolic function normal . Estimated LVEF by qualitative assessment is normal (>60%) . Previous Study Compared to the previous study 1-5-17 there was no significant change. Signature Findings Left Ventricle Limited 2D exam (no Doppler) to address study in dication. Th e left ventricle is chamber size (by PSL AX di mension) is normal (female - LVIDd 3.8-5 .2cm) . Chris rderline concentric LV hypertrophy. Al l of the LV segments contract normally . Gl obal LV systolic function normal . Es timated LVEF by qualitative assessment i s normal (> 60%) . Left AtriumLA size is mildly enlarged (35-41 ml/m2) . Right VentricleThe right ventricular chamber size and systolic fu nction are within normal limits. Right Atrium RA cavity size is normal . Atrial SeptumIV saline contrast injection was negative for a PF O (p atent foramen ovale) at rest and post Va lsalva . Aortic Valve Mild AoV cusp thickening. Ao V cusp mobility is normal . Mitral Valve Mild MV leaflet thickening. Mi ld mitral annular calcification. Tricuspid ValveTV structure is normal. Pulmonic Valve PV is not well visualized. AortaAortic root size (SInus of Valsalva diameter) i s no rmal . PericardiumNo significant pericardial effusion is visualized. IVC/SVC/PA/PV/PleuralThe estimated RA pressure by IVC dynamics 5-10mmHg . Chambers/Structures Left Atrium LA Volume: 69.33 ml LA Area: 21.56 cm^2 LA Vol. Index: 36 ml/m^2 Left Ventricle LVIDd: 5.16 cm LV Septum Diastolic: 1.11 cm LV PW Diastolic: 1.15 cm LVOT Diameter: 2.04 cm Aorta Ao Root S of Vanesa.: 3.3 cm Doppler/Quantitative Measurements LVOT LVOT Diameter: 2.04 cm LVOT Area: 3.27 cm^2 Procedure Note Interface, External Ris In - 03/25/2019 9:12 AM VISUAL MERCHANDISING COORDINATOR Transthoracic Echocardiography Report (TTE) Demographics Patient Name ROXY BOBBY Date of Study 03/25/2019 A Gender Female Visit Number [id number] Race Unknown Room [place] [id number] Number Date of 1950 [facility] Physician Rob Jauregui MD Age 68 year(s) Sonogra ujdson [facility] [employer] Lawanda Roche Interpr eting Jovanny Santoro MD Physici an Procedure Type of Study TTE procedure:ECHO2D MODE W/O DOPPLER Indications:Stroke . Clinical History BACK PAIN,DM,HTN Height: 67 inches Weight: 78.02 kg (172 lbs) BSA: 1.9 m^2 BMI: 26.94 kg/m^2 HR: 81 bpm BP: 187/80 mmHg Summary Limited 2D exam (no Doppler) to address study indication. IV saline contrast injection was negati ve for a PFO (patent foramen ovale) at rest and post Valsalva . The left ventricle is chamber size (by PSLAX dimension) is normal (female - LVIDd 3.8-5.2cm) . All of the LV segm ents contract normally . Global LV systolic function normal . Estimated LV EF by qualitative assessment is normal (>60%) . Previous Study Compared to the previous study 1-5-17 t here was no significant change. Signature Findings Left Ventricle Limited 2D exam (no Doppler) to address study indication. The left ventric le is chamber size (by PSLAX dimension) is no rmal (female - LVIDd 3.8-5.2cm) . Borderline rosemary ntric LV hypertrophy. All of the LV se gments contract normally . Global LV systol ic function normal . Estimated LVEF b y qualitative assessment is normal (>60%) . Left Atrium LA size is mildl y enlarged (35-41 ml/m2) . Right Ventricle The right ventri cular chamber size and systolic function are wit hin normal limits. Right Atrium RA cavity size i s normal . Atrial Septum IV saline contra st injection was negative for a PFO (patent foramen ovale) at rest and post Valsalva . Aortic Valve Mild AoV cusp th ickening. AoV cusp mobilit y is normal . Mitral Valve Mild MV leaflet thickening. Mild mitral wilner lar calcification. Tricuspid Valve TV structure is normal. Pulmonic Valve PV is not well v isualized. Aorta Aortic root size (SInus of Valsalva diameter) is normal . Pericardium No significant p ericardial effusion is visualized. IVC/SVC/PA/PV/Pleural The estimated RA pressure by IVC dynamics 5-10mmHg . Chambers/Structures Left Atrium LA Volume: 69.33 ml LA Area: 21.56 cm^2 LA Vol. Index: 36 ml/m^2 Left Ventricle LVIDd: 5.16 cm LV Septum Diastolic: 1.11 cm LV PW Diastolic: 1.15 cm LVOT Diameter: 2.04 cm Aorta Ao Root S of Vanesa.: 3.3 cm Doppler/Quantitative Measurements LVOT LVOT Diameter: 2.04 cm LVOT Area: 3.27 cm^2 Performing Organization Address City/[facility]/Zipcode Phone Number [facility] ECHO HEARTLAB [facility] CPACS C-Reactive Protein (03/25/2019 4:38 AM VISUAL MERCHANDISING COORDINATOR) CRP 1.16 (H) 0.00 - 0.50 mg/dL [facility] CENTER Specimen Blood Performing Organization Address City/[facility]/Zipcode Phone Number [facility] [address] [place] [address] CENTER Troponin I (03/25/2019 4:38 AM VISUAL MERCHANDISING COORDINATOR) Troponin I <0.01 0.00 - 0.03 ng/mL [facility] Specimen Blood Narrative Performed At Troponin I (TnI) levels must be interpreted [facility] in the context of the presenting symptoms and the clinical findings. Elevated TnI levels indicate myocardial damage, but are not specific for ischemic heart disease. Elevated TnI levels are seen in patients with other cardiac conditions (including myocarditis and congestive heart failure), and slight TnI elevations occur in patients with other conditions, including sepsis, renal failure, acidosis, acute neurological disease, and persistent tachyarrhythmia. Performing Organization Address [facility]/[place]ust[place] Phone Number [address] [address] [place] Lipid panel (03/25/2019 4:38 AM VISUAL MERCHANDISING COORDINATOR) Triglycerides 189Comment: Specimen slightly mg/dL [facility] 177Comment: Specimen slightly mg/dL [facility] HDL 42 mg/dL [facility] LDL Calculated 97 mg/dL [facility] Specimen Blood Narrative Performed At Triglyceride Reference Range: [facility] Low Risk <150 [id number] High Risk 200-499 Very High Risk>=500 Cholesterol Reference Range: Low Risk <200 [id number] High Risk>240 HDL Cholesterol Reference Range: Low Risk >=60 High Risk <40 LDL Cholesterol Reference Range: Optimal<100 Near [id number] [id number] Diuj963-099 Very High >=190 Performing Organization Address [facility]/[place] Phone Number [address] [address] [place] Hemoglobin A1c (03/25/2019 4:06 AM VISUAL MERCHANDISING COORDINATOR) Hemoglobin A1C 11.1 (H) 4.3 - 6.1 % [facility] Specimen Blood Performing Organization Address [facility]/Zipcode Phone Number [address] [phone] [place] XR chest 1 view portable / bedside (03/25/2019 3:45 AM VISUAL MERCHANDISING COORDINATOR) Specimen Narrative Performed At FINAL REPORT [facility] History: CVA. Comparison: 04/26/2016 Findings: A single view of the chest is submitted. The cardiac silhouette is within normal limits for size. There is atherosclerotic calcification of the aor ta. The lung volumes are slightly low. There is no focal consolidation, pneumothorax, large pleural effusion or evidence of overt pulmonary edema. There is no acute bony abnormality. Signed: Ron Petty MD Report Verified Date/Time:03/25/2019 05:59:01 Procedure Note Interface, External Ris In - 03/25/2019 6:01 AM VISUAL MERCHANDISING COORDINATOR FINAL REPORT History: CVA. Comparison: 04/26/2016 Findings: A single view of the chest is submitted. The cardiac silhouette is within normal limits for size. There is atherosclerotic calcification of the aor ta. The lung volumes are slightly low. There is no focal consolidation, pneumothorax, large pleural effusion or evidence of overt pulmonary edema. There is no acute bony abnormality. Signed: Ron ePtty MD Report Verified Date/Time: 03/25/2019 0 5:59:01 Performing Organization Address City/[facility]/[place] Phone Number [facility] Vitamin B12 and Folate (03/25/2019 3:44 AM VISUAL MERCHANDISING COORDINATOR) Vitamin B12 839 (H) 213 - 816 pg/mL [facility] Folate 36.1 >=7.0 ng/mL [facility] Specimen Blood Performing Organization Address City/[facility]/Zipcode Phone Number [facility] [address] [place], [place] [phone] CENTER TSH/Free T4 If Indicated (03/25/2019 3:44 AM VISUAL MERCHANDISING COORDINATOR) TSH 1.57 0.35 - 4.94 uIU/mL [facility] Specimen Blood Performing Organization Address City/State/Zipcode Phone Number [facility] [address] [place] [address] CENTER Prothrombin time/INR (03/25/2019 3:44 AM VISUAL MERCHANDISING COORDINATOR) Protime 14.1 11.9 - 14.2 seconds [facility] INR 1.2 <=5.9 [facility] Specimen Blood Narrative Performed At Effective 09/22/2018: PT Reference Range [facility] Change New: 11.9-14.2Previous: 11.7-14.7 RECOMMENDED COUMADIN/WARFARIN INR THERAPY RANGES STANDARD DOSE: 2.0-3.0Includes: PROPHYLAXIS for venous thrombosis, systemic embolization; TREATMENT for venous thrombosis and/or pulmonary embolus. HIGH RISK: Target INR is 2.5-3.5 for patients wiht mechanical heart valves. Performing Organization Address [facility]/Zipcode Phone Number [address] [address] CENTER RPR (03/25/2019 3:43 AM VISUAL MERCHANDISING COORDINATOR) RPR Nonreactive Nonreactive [facility] Specimen Blood Performing Organization Address [facility]/Zipcode Phone Number [address] [address] CENTER after 10/03/2018 Insurance Payer Benefit Plan / Subscriber ID Type Phone Address Group MEDICARE MEDICARE A B xxxxxxxxxxx Medicare BLUE CROSS/BLUE BS INDEMNITY PR xxxxxxxxxxxx [facility] [address] [place] [address] Advance Directives For more information, please contact:[address] [phone] Code Status Date Activated Date Inactivated Comments Full Code 03/25/2019 4:28 AM 03/26/2019 7:23 PM This code status was determined by: Patient Full Code 05/09/2016 3:39 PM 05/20/2016 5:04 PM This code status was determined by: Patient Full Code 04/26/2016 4:42 AM 05/09/2016 3:39 PM This code status was determined by: Patient
--- OUTSIDE RECORDS SUMMARY | 2019-10-04 20:01 | XMS REPORT | Continuity of Care Document ---
:1950 Author Organization [facility] t Address [address] [place] [address] [address]. [address]. [address] [place] [address] Care Team Providers Name Role Phone Jack Ortiz Primary Care Physician Unavailable Carla Tony MD Attending Clinician [phone] Carla Tony MD Attending Clinician [phone] RUDDY CHAUHAN Attending Clinician Unavailable Ruddy Chauhan MD Attending Clinician Kayy OLIVA Attending Clinician Lauren OLIVA Attending Clinician LAUREN Admitting Clinician Unavailable Payers Payer Name Policy Policy Number Effective Expiration Source Type Date Date MEDICAREMEDICARE A xxxxxxxxxxx [facility] BLUE CROSS/BLUE xxxxxxxxxxxx [facility] - [id number] [id number], [place] [address] Problems Condition Condition Condition Status Onset Resolution Last Treating Co mments Source Name Details Category Date Date Treatment Clinician Date Stroke Stroke Disease Active 2018-[address] [facility]-25 - 00:[facility]: Medical 00 Center Expressive Expressive Disease Active 2018-[address] aphasia aphasia 05-25 - 00:00: Medical 00 [place] Hypertensi Hypertensi Disease Active [facility] on on 05-18 - 00:00: Medical 00 [place] Leukocytos Leukocytos Disease Active [facility] is is 04-28 - 00:00: Medical 00 [place] Erythrocyt Erythrocyt Disease Active [facility] osis osis 04-28 [facility] [place] Elevated Elevated Disease Active [facility] trop[facility] trop[facility] 04[facility]28 [facility] [place] Acidemia Acidemia Disease Active [facility] [place] Cerebellar Cerebellar Disease Active [facility] stroke, stroke, 04-27 [facility] - acute acute 00:00: Medical [place] Vertigo Vertigo Disease Active 2015-[address] [facility] [place] UTI UTI Disease Active 2015-[address] [facility] (urinary (urinary [facility] - tract tract 00:00: Medical infection) infection) 00 Ce nter Gastroesop Gastroesop Disease Active 2015-[address] hageal hageal [facility] - reflux reflux 00:00: Medical disease disease 00 [place] without without esophagiti esophagiti s s Diabetes Diabetes Disease Active 2015-04 [facility] type 2, type 2, [facility] - controlled controlled 00:00: Me dical 00 [place] Hypothyroi Hypothyroi Disease Active 2015-[address] [facility] d [facility] - 00:00: Medical [place] Dehydratio Dehydratio Disease Active 2015-[address] n n [facility] - 00:00: Medical 00 [place] Allergies, Adverse Reactions, Alerts Allergy Allergy Status Severity Reaction(s) Onset Inactive Treating Comm ents Source Name Type Date Date Clinician Codeine Drug Active Itching, 2015-04 Rash and [facility] Intolera Rash itching [facility] - nce 00:00: Medical 00 [place] Social History Social Habit Start Date Stop Date Quantity Comments Source Sex Assigned At [facility] Smoking Status Start Date Stop Date Source Never smoker [facility] edical [place] Medications Ordered Filled Start Stop Current Ordering Indication Dosage Frequency Signature Comments Components Source Medication Medication Date Date Medication? Clinician (SIG) Name Name dilTIAZem 2018-04- No 120mg QD Take [address] (DILACOR 1-30 11-30 mg by [facility] - XR) 120 MG 15:33: 00:00 mouth Medic al 24 hr 01 :00 daily. [place] capsule gabapentin 2018-04- No 300mg QD Take [address] (NEURONTIN) 1-30 11-30 mg by [facility] - 100 MG 15:28: 00:00 mouth Medical capsule 29 :00 nightly. Center gabapentin 2018-04 Yes 300mg Q.[id number] Take [address] [facility] [address] (NEURONTIN) 1-30 [id number] capsules [facility] - 100 MG 00:00: 3D (300 mg Medical capsule 00 total) by Center mouth 3 (three) times daily. atorvastati 2018-04 Yes 80mg QD Take [address] n (LIPITOR) 1-30 tablet (80 Edilia kes - 80 MG 00:00: mg total) Medical tablet 00 by mouth Center nightly For cholestero l, to prevent future stroke. senna-docus 2018-04 2020- No 1{tbl} Take [address] ate 1-30 11-29 tablet by [facility] - (SENOKOT S) 00:00: 23:59 mouth 2 Me dical 8.6-50 mg 00 :00 (two) Center per tablet times daily as needed for Constipati on. dilTIAZem 2018-04 Yes 120mg Q.5D Take [address] (CARDIZEM) 1-29 mg by [facility] - 120 MG 00:22: mouth 2 Medical tablet 09 (two) Center times daily. furosemide 2018-04 Yes 40mg Q.5D Take [address] (LASIX) 40 1-29 by mouth 2 Irene es - MG tablet 00:22: (two) Medical 09 times Center daily. potassium 2018-04 Yes 10meq QD Take [address] chloride 1-29 mEq by [facility] - (KLOR-CON) 00:22: mouth Medica l 10 MEQ CR 09 daily. Center tablet atenolol 2018-04 Yes 100mg Q.5D Take [address] (TENORMIN) 1-29 mg by [facility] - 100 MG 00:22: mouth 2 Medical tablet 09 (two) Center times daily. lansoprazol 2018-04 Yes 15mg QD Take [address] e 1-29 by mouth [facility] - (PREVACID) 00:22: daily. Medic al 15 MG 09 Center capsule aspirin 81 2018-04 Yes 81mg QD Take [address] MG EC 1-29 by mouth [facility] - tablet 00:22: daily. Medical 09 Center lisinopril 2018-04 Yes 40mg Q.5D Take [address] (PRINIVIL,Z - by mouth 2 Edilia kes - ESTRIL) 40 00:22: (two) Medica l MG tablet 08 times Center daily. cloNIDine 2018-04 Yes .2mg Q.[id number] Take 0.[address] HCl 05-25 [id number] mg by [facility] - (CATAPRES) 00:18: 3D mouth 3 Medi elle 0.2 MG 06 (three) Center tablet times daily. glimepiride 2018-04 Yes 4mg Q.5D Take [address] (AMARYL) 4 05-25 by mouth 2 Irene es - MG tablet 00:18: (two) Medical 06 times Center daily. thyroid, Yes 30mg Take [address] [facility] pork, 30 mg 1-23 tablet (30 Edilia kes - Tab 00:00: mg total) Medical 00 by mouth Center Every morning on an empty stomach. pantoprazol Yes 40mg QD Take [address] e 1-23 tablet (40 [facility] - (PROTONIX) 00:00: mg total) Me dical 40 MG 00 by mouth Center tablet daily. Vital Signs Vital Name Observation Time Observation Value Comments Source Systolic blood 2019-03-26 16:00:00 144 mm[Hg] [facility] pressure [facility] Diastolic blood 2019-03-26 16:00:00 67 mm[Hg] [facility] Heart rate 2019-03-26 16:00:00 59 /min [facility] Body temperature 2019-03-26 16:00:00 35.83 Yamileth [facility] Respiratory rate 2019-03-26 16:00:00 18 /min [facility] Oxygen saturation in 2019-03-26 16:00:00 98 /min [facility] Arterial blood by Medical Ce nter Pulse oximetry Body height 2019-03-25 00:13:00 170.2 cm [facility] Body weight Measured 2019-03-25 00:13:00 78.047 kg [facility] BMI 2019-03-25 00:13:00 26.95 kg/m2 [facility] Procedures Procedure Date / Time Performing Clinician Source Performed RHYTHM STRIP - SCAN 2019-03-30 07:52:10 Provider, Elijah [facility] POCT-GLUCOSE METER 2019-03-26 15:57:00 Lauren JamesuzmaJeannette [facility] POCT-GLUCOSE METER 2019-03-26 12:33:00 LaurenRosalino [facility] POCT-GLUCOSE METER 2019-03-26 08:26:00 Lauren OlesyaPatrickKaylen [facility] BASIC METABOLIC PANEL (7) 2019-03-26 04:57:00 [facility] MAGNESIUM 2019-03-26 04:57:00 [facility] CBC W/PLT COUNT & AUTO 2019-03-26 04:57:00 [facility] [place] POCT-GLUCOSE METER 2019-03-25 23:12:00 Lauren JamesItzelg [facility] ECHOCARDIOGRAM REPORT - 2019-03-25 21:10:25 Provider, Elijah I [facility] POCT-GLUCOSE METER 2019-03-25 20:31:00 LaurenRosalino [facility] POCT-GLUCOSE METER 2019-03-25 14:59:00 Olesya StokesJeannette [facility] CTA BRAIN 2019-03-25 12:15:00 Kevon Hubbard [facility] CT/CTA CAROTID 2019-03-25 12:15:00 Kevon Hubbard [facility] ECG 12-LEAD 2019-03-25 09:49:18 Kevon Hubbard [facility] MR BRAIN WITH & WITHOUT IV 2019-03-25 08:49:00 Kevon Hubbard [facility] POCT-GLUCOSE METER 2019-03-25 07:57:00 Rosalino Stokes [facility] 2D ECHO MODE W/O DOPPLER 2019-03-25 07:37:16 Kevon Hubbard [facility] POCT-GLUCOSE METER 2019-03-25 07:11:00 Sivakumar Sultana [facility] BASIC METABOLIC PANEL (7) 2019-03-25 04:38:00 Kevon Hubbard [facility] LIPID PANEL 2019-03-25 04:38:00 Kevon Hubbard [facility] TROPONIN I 2019-03-25 04:38:00 Kevon Hubbard [facility] C-REACTIVE PROTEIN 2019-03-25 04:38:00 Kevon Hubbard [facility] CBC W/PLT COUNT & AUTO 2019-03-25 04:07:00 Kevon Hubbard [facility] HEMOGLOBIN A1C 2019-03-25 04:06:00 Kevon Hubbard [facility] XR CHEST 1 VIEW 2019-03-25 03:45:00 Kevon Hubbard [facility]/BEDSIDE [facility] PROTHROMBIN TIME/INR 2019-03-25 03:44:00 Kevon Hubbard I [facility] TSH/FREE T4 IF INDICATED 2019-03-25 03:44:00 Kevon Hubbard [facility] VITAMIN B12 AND FOLATE 2019-03-25 03:44:00 Kevon Hubbard [facility] RPR 2019-03-25 03:43:00 Kevon Hubbard [facility] Encounters Start End Encounter Admission Attending Care Care Encounter Source Date/Time Date/Time Type Type Clinicians Facility Department ID 2019-06-15 2019-06-15 Office Armando BROOKS [id number] 14:23:16 15:20:30 Visit Mattie, AMBULATOR [id number] Carri Stern [id number] Carla [id number] Results Test Description Test Time Test Comments Results Result [facility] e Comments ECG 12 lead Interface, External Ris [facility] St 1 In - 03/27/2019 4:58 PM [facility] - 16:58:15 CSTVentricular Rate 68 Me dical BPMAtrial Rate 68 BPMP-R Center Interval 168 msQRS Duration 138 msQ-T Interval 476 msQTC Calculation(Bazett) 506 msP [place] 48 degreesR [place] 9 degreesT [place] -4 degreesNormal sinus rhythmRight bundle branch blockNonspecific ST and T wave abnormalityProlonged QTAbnormal ECGWhen compared with ECG of 27-APR-2016 19:07,ST less depressed now inferolateral leadsST depression and T wave inversion less evident in Anterior leadsConfirmed by MD VIOLETTA, SERGIO ([id number]) on 03/27/2019 4:58:09 PM RPR 2019-03-27 04:27:00 Test Item Value Reference Range Interpretation Comme nts RPR (test code = 56248-0) Nonreactive Nonreactive Lab Interpretation (test code = 69927-6) Normal [facility] 04:27:00 Test Item Value Reference Range Interpretation Comments RPR SCREEN (BEAKER) (test code = Nonreactive Nonreactive 420) POC-Glucose [id number] 16:12:00 Test Item Value Reference Range Interpretation Comments POC-Glucose Meter (test 278 mg/dL 70-110 H : TE STED AT [facility] code = 1538) [address] [facility], 7[address] 30: Net Technical Architect/Techni paulette ID = [id number] for AKINSONU, SANJUANA Lab Interpretation (test Abnormal code = 32518-2) [facility] [id number] 16:12:00 Test Item Value Reference Range Interpretation Comments POC-GLUCOSE METER 278 mg/dL 70-110 H [facility] (test code = [facility], 1538) [address]: Net Technical Architect/Techni paulette ID = [id number] for AK INSONU, SANJUANA POCT-GLUCOSE [id number] 13:34:00 Test Item Value Reference Range Interpretation Comments POC-GLUCOSE METER 349 mg/dL 70-110 H [facility] (BEAKER) (test code = [facility], 1538) [address]: Net Technical Architect/Techni paulette ID = [id number] for AK INSONU, SANJUANA POCT-GLUCOSE [id number] 08:38:00 Test Item Value Reference Range Interpretation Comments POC-GLUCOSE METER 247 mg/dL 70-110 H : TESTED A T [facility] 6720 (BEAKER) (test code = [place], 1538) [address]: Net Technical Architect/Techni paulette ID = [id number] for SANJUANA DHALIWAL Basic Metabolic [id number] 05:38:00 Test Item Value Reference Range Interpretation Comments Sodium (test code = 138 meq/L 196-584 9986-2) Potassium (test code = 3.5 meq/L 3.5-5.1 Speci men moderately 2823-3) hemolyzed Chloride (test code = 108 meq/L 98-107 H 2075-0) CO2 (test code = 23 meq/L 22-29 8-9) BUN (test code = 7 mg/dL 7-21 3094-0) Creatinine (test code = 0.81 mg/dL 0.57-1.25 Spec imen moderately 2160-0) hemolyzed Glucose (test code = 291 mg/dL 70-105 H 2345-7) Calcium (test code = 8.4 mg/dL 8.4-10.2 42640-6) EGFR (test code = 70 mL/min/1.73 [place] [address]-1) NOT ACCURATE CREATININE CLEARANCE IN PREDICTING GLOMERULAR FILTRATION RATE . ESTIMATED GFR I S NOT APPLICABLE FOR DIALYSIS PATIEN TS. Lab Interpretation Abnormal (test code = 94811-4) [facility]ium[facility]esium2019-11-30 05:38:00 Test Item Value Reference Range Interpretation Comments Magnesium (test code = 1.9 mg/dL 1.6-2.6 Speci men moderately 88625-7) hemolyzed Lab Interpretation (test Normal code = 65547-2) [facility]ium[facility]UM2019-11-30 05:38:00 Test Item Value Reference Range Interpretation Comments MAGNESIUM (BEAKER) 1.9 mg/dL 1.6-2.6 Specimen moderately (test code = 627) hemolyzed BASIC METABOLIC [id number] 05:38:00 Test Item Value Reference Range Interpretation Comments SODIUM (BEAKER) 138 meq/L 136-145 (test code = 381) POTASSIUM (BEAKER) 3.5 meq/L 3.5-5.1 Specimen moderately (test code = 379) hemolyzed CHLORIDE (BEAKER) 108 meq/L 98-107 H (test code = 382) CO2 (BEAKER) (test 23 meq/L 22-29 code = 355) BLOOD UREA NITROGEN 7 mg/dL 7-21 (BEAKER) (test code = 354) CREATININE (BEAKER) 0.81 mg/dL 0.57-1.25 Specimen moderately (test code = 358) hemolyzed GLUCOSE RANDOM 291 mg/dL 70-105 H (BEAKER) (test code = 652) CALCIUM (BEAKER) 8.4 mg/dL 8.4-10.2 (test code = 697) EGFR (BEAKER) (test 70 mL/min/1.73 ESTIMA KAILYN GFR IS code = 1092) sq m NOT ACCURATE CREATININE CLEARANCE IN PREDICTING GLOMERULAR FILTRATION RATE . ESTIMATED GFR I S NOT APPLICABLE FOR DIALYSIS PATIEN TS. CBC with platelet count + automated [id number] 05:14:00 Test Item Value Reference Range Interpretation Comments WBC (test code = 6690-2) 8.1 3.5- 10.5 K/L RBC (test code = 789-8) 4.83 3.93- 5.22 M/L MCHC (test code = 786-4) 34.5 32.2- 35.5 GM/DL Hematocrit (test code = 4544-3) 42.3 % 34.1-44.9 MCV (test code = 787-2) 87.6 fL 79.4-94.8 MCH (test code = 785-6) 30.2 pg 25.6-32.2 RDW (test code = 788-0) 12.0 % 11.7-14.4 Platelets (test code = 777-3) 195 150- 450 K/CU MM MPV (test code = 81300-5) 12.6 fL 9.4-12.3 H nRBC (test code = 413) 0 0- 0 /100 WBC % Neutros (test code = 429) 53 % % Lymphs (test code = 430) 34 % % Monos (test code = 431) 10 % % Eos (test code = 432) 2 % % Baso (test code = 437) 1 % # Neutros (test code = 670) 4.25 1.56- 6.13 K/L # Lymphs (test code = 414) 2.71 1.18- 3.74 K/L # Monos (test code = 415) 0.78 0.24- 0.36 K/L H # Eos (test code = 416) 0.19 0.04- 0.36 K/L # Baso (test code = 417) 0.10 0.01- 0.08 K/L H Immature Granulocytes-Relative 1 % 0-1 (test code = 2801) Lab Interpretation (test code = Abnormal 15344-6) [facility] W/PLT COUNT & AUTO [id number] 05:14:00 Test Item Value Reference Range Interpretation Comments WHITE BLOOD CELL COUNT (BEAKER) 8.1 K/ L 3.5-10.5 (test code = 775) RED BLOOD CELL COUNT (BEAKER) 4.83 M/ L 3.93-5.22 (test code = 761) HEMOGLOBIN (BEAKER) (test code = 14.6 GM/DL 11.2-15.7 410) HEMATOCRIT (BEAKER) (test code = 42.3 % 34.1-44.9 411) MEAN CORPUSCULAR VOLUME (BEAKER) 87.6 fL 79.4-94.8 (test code = 753) MEAN CORPUSCULAR HEMOGLOBIN 30.2 pg 25.6-32.2 (BEAKER) (test code = 751) MEAN CORPUSCULAR HEMOGLOBIN CONC 34.5 GM/DL 32.2-35.5 (BEAKER) (test code = 752) RED CELL DISTRIBUTION WIDTH 12.0 % 11.7-14.4 (BEAKER) (test code = 412) PLATELET COUNT (BEAKER) (test 195 K/CU MM 150-450 code = 756) MEAN PLATELET VOLUME (BEAKER) 12.6 fL 9.4-12.3 H (test code = 754) NUCLEATED RED BLOOD CELLS 0 /100 WBC 0-0 (BEAKER) (test code = 413) NEUTROPHILS RELATIVE PERCENT 53 % (BEAKER) (test code = 429) LYMPHOCYTES RELATIVE PERCENT 34 % (BEAKER) (test code = 430) MONOCYTES RELATIVE PERCENT 10 % (BEAKER) (test code = 431) EOSINOPHILS RELATIVE PERCENT 2 % (BEAKER) (test code = 432) BASOPHILS RELATIVE PERCENT 1 % (BEAKER) (test code = 437) NEUTROPHILS ABSOLUTE COUNT 4.25 K/ L 1.56-6.13 (BEAKER) (test code = 670) LYMPHOCYTES ABSOLUTE COUNT 2.71 K/ L 1.18-3.74 (BEAKER) (test code = 414) MONOCYTES ABSOLUTE COUNT (BEAKER) 0.78 K/ L 0.24-0.36 H (test code = 415) EOSINOPHILS ABSOLUTE COUNT 0.19 K/ L 0.04-0.36 (BEAKER) (test code = 416) BASOPHILS ABSOLUTE COUNT (BEAKER) 0.10 K/ L 0.01-0.08 H (test code = 417) IMMATURE GRANULOCYTES-RELATIVE 1 % 0-1 PERCENT (BEAKER) (test code = 2801) POCT-GLUCOSE [id number] 23:24:00 Test Item Value Reference Range Interpretation Comments POC-GLUCOSE METER 296 mg/dL 70-110 H : Notified RN/MD: (DONTE) (test code = TESTED AT [place] [address]) [facility], [address]: Net Technical Architect/Techni paulette ID = [id number] for Ub Shereen rosales POCT-GLUCOSE [id number] 20:42:00 Test Item Value Reference Range Interpretation Comments POC-GLUCOSE METER 327 mg/dL 70-110 H : Notified RN/MD: (DONTE) (test code = TESTED AT [facility] 67 153) [facility], [address]: Net Technical Architect/Techni paulette ID = [id number], CTANGIO [id number] 15:43:00FINAL REPORT CLINICAL HISTORY: Stroke, follow up TECHNIQUE: Initially, noncontrast head CT images were performed. Contiguous contrast-enhanced axial images through the neck followed by axial images through the head with coronal and sagittal reformations to assess the arterial circulation. 3-D reconstructions were performed using a volume rendered technique separately on a workstation. This exam was performed according to the departmental dose optimization program which includes automated exposure control, adjustment of the mA and/or kV according to the patient size, and/or use of an iterative reconstruction technique. Stenosis evaluation reported in compliance with NASCET criteria. COMPARISON: MRI brain 03/25/2019, CTA head and neck 05/01/2016 FINDINGS: CTA head:Multifocal left border zone acute infarcts. Remote left cerebellar hemisphere infarct. No acute intracranial hemorrhage. There is no hydrocephalus or midline shift. The skull is intact. There is atherosclerosis inthe cavernous ICAs with a short segment severe focal stenosis of the right ICA at the petrous/cavernous junction. Moderate focal stenosis of the left communicating ICA. Bilateral MCA and CRISTA branches are patent. Posterior circulation is unremarkable. The major intradural venous sinuses are patent. CTA neck:Great vessel origins: No occlusion or high-grade stenosis. Carotid arteries: No occlusion or high-grade stenosis. Vertebral arteries: No occlusion or high-grade stenosis. Mild degenerative changes of the cervical spine. Multinodular thyroid; largest discrete nodule measures up to 2 cm and should be further evaluated by ultrasound. Mild scarring of the visualized lung apices. 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 Moderate focal stenosis of the left communicating ICA. No intracranial arterial occlusion.3.No significant cervical arterial stenosis. Signed: Makenzie Amor Verified Date/Time: 03/25/2019 15:43:37 CT, CAROTID, [id number] 15:43:00FINAL REPORT CLINICAL HISTORY: Stroke, follow up TECHNIQUE: Initially, noncont rast head CT images were performed. Contiguous contrast-enhanced axial images through the neck followed by axial images through the head with coronal and sagittal reformations to assess the arterial circulation. 3-D reconstructions were performed using a volume rendered technique separately on a workstation. This exam was performed according to the departmental dose optimization program which includes automated exposure control, adjustment of the mA and/or kV according to the patient size, and/or use of an iterative reconstruction technique. Stenosis evaluation reported in compliance with NASCET criteria. COMPARISON: MRI brain 03/25/2019, CTA head and neck 05/01/2016 FINDINGS: CTA head:Multifocal left border zone acute infarcts. Remote left cerebellar hemisphere infarct. No acute intracranial hemorrhage. There is no hydrocephalus or midline shift. The skull is intact. There is atherosclerosis inthe cavernous ICAs with a short segment severe focal stenosis of the right ICA at the petrous/cavernous junction. Moderate focal stenosis of the left communicating ICA. Bilateral MCA and CRISTA branches are patent. Posterior circulation is unremarkable. The major intradural venous sinuses are patent. CTA neck:Great vessel origins: No occlusion or high-grade stenosis. Carotid arteries: No occlusion or high-grade stenosis. Vertebral arteries: No occlusion or high- grade stenosis. Mild degenerative changes of the cervical spine. Multinodular thyroid; largest discrete nodule measures up to 2 cm and should be further evaluated by ultrasound. Mild scarring of the visualized lung apices. 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 Moderate focal stenosis of the left communicating ICA. No intracranial arterial occlusion.3.No significant cervical arterial stenosis. Signed: Makenzie Amor Verified Date/Time: 03/25/2019 15:43:37 [facility] [id number] 15:43:00Interface, External Ris In - 03/25/2019 3:45 PM CSTFINAL REPORT CLINICAL HISTORY: Stroke, follow up TECHNIQUE: Initially, noncontrast head CT images were performed. Contiguous contrast-enhanced axial images through the neck followed by axial images through the head with coronaland sagittal reformations to assess the arterial circulation. 3-D reconstructions were performed using a volume rendered technique separately on a workstation. This exam was performed according to the departmental dose optimization program which includes automated exposure control, adjustment of the mA and/or kV according to the patient size, and/or use of an iterative reconstruction technique. Stenosis evaluation reported in compliance with NASCET criteria. COMPARISON: MRI brain 03/25/2019, CTA head and neck 05/01/2016 FINDINGS: CTA head:Multifocal left border zone acute infarcts. Remote left cerebellar hemisphere infarct. No acute intracranial hemorrhage. There is no hydrocephalus or midline shift. The skull is intact. There is atherosclerosis in the cavernous ICAs with a short segment severe focal stenosis of the right ICA at the petrous/cavernous junction. Moderate focal stenosis of the leftcommunicating ICA. Bilateral MCA and CRISTA branches are patent. Posterior circulation is unremarkable.The major intradural venous sinuses are patent. CTA neck:Great vessel origins: No occlusion or high-grade stenosis. Carotid arteries: No occlusion or high-grade stenosis. Vertebral arteries: No occlusion or high-grade stenosis. Mild degenerative changes of the cervical spine. Multinodular thyroid; largest discrete nodule measures up to 2 cm and should be further evaluated by ultrasound. Mild scarring of the visualized lung apices. 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 Moderate focal stenosis of the left communicating ICA. No intracranial arterial occlusion.3.No significant cervical arterial stenosis. Signed: Makenzie Amor Verified Date/Time: 03/25/2019 15:43:37 [id number] 15:43:00Interface, External Ris In - 03/25/2019 3:45 PM CSTFINAL REPORT CLINICAL HISTORY: Stroke, follow up TECHNIQUE: Initially, noncontrast head CT images were performed. Contiguous contrast-enhanced axial images through the neck followed by axial images through the head with coronaland sagittal reformations to assess the arterial circulation. 3-D reconstructions were performed using a volume rendered technique separately on a workstation. This exam was performed according to thedepartmental dose optimization program which includes automated exposure control, adjustment of the mA and/or kV according to the patient size, and/or use of an iterative reconstruction technique. Stenosis evaluation reported in compliance with NASCET criteria. COMPARISON: MRI brain 03/25/2019, CTA head and neck 05/01/2016 FINDINGS: CTA head:Multifocal left border zone acute infarcts. Remote left cerebellar hemisphere infarct. No acute intracranial hemorrhage. There is no hydrocephalus or midline shift. The skull is intact. There is atherosclerosis in the cavernous ICAs with a short segment severe focal stenosis of the right ICA at the petrous/cavernous junction. Moderate focal stenosis of the leftcommunicating ICA. Bilateral MCA and CRISTA branches are patent. Posterior circulation is unremarkable.The major intradural venous sinuses are patent. CTA neck:Great vessel origins: No occlusion or high- grade stenosis. Carotid arteries: No occlusion or high-grade stenosis. Vertebral arteries: No occlusion or high-grade stenosis. Mild degenerative changes of the cervical spine. Multinodular thyroid; largest discrete nodule measures up to 2 cm and should be further evaluated by ultrasound. Mild scarring of the visualized lung apices. 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 Moderate focal stenosis of the left communicating ICA. No intracranial arterial occlusion.3.No significant cervical arterial stenosis. Signed: Makenzie Amor MDReport Verified Date/Time: 03/25/2019 15:43:37 [facility] [id number] 15:11:00 Test Item Value Reference Range Interpretation Comments POC-GLUCOSE METER 223 mg/dL 70-110 H : TESTED A T [facility] 6720 ([place]) (test code = ALINA Padilla [facility], 1538) [address]: Net Technical Architect/Techni paulette ID = [id number] for Idalia Obrien MR, BRAIN, [id number] 10:38:00FINAL REPORT MRI Brain with and without contrast Clinical History: Stroke Technique: MRI of the brain utilizing axial T1, T2, FLAIR, GRE, DWI, sagittal T1; and postgadolinium axial, sagittal, and coronal T1-weighted images. Comparisons: MRI 04/26/2016 Findings: There is acute infarction in the left cerebral deep white matter. There are small acute cortical infarcts in the left parietal lobe. There is no hemorrhage. There is a chronic encephalomalacic inferomedial left cerebellar infarct with hemosiderin staining. There is no abnormal intracranial enhancement or mass. There is mild periventricular and subcortical white matter T2 hyperintensity, which is nonspecific but compatible with chronic microvascular ischemic change. There is mild generalized sulcal prominence withouthydrocephalus, midline shift, or apparent mass effect. There are no extra-axial fluid collections. The craniocervical junction is preserved. The major intracranial flow-voids appear patent. IMPRESSION: Acute infarction in the deep left cerebral white matter and involving the left parietal cortex. No acute hemorrhage. Chronic left cerebellar infarct with remote hemorrhage. No masslike intracranial enhancement. Signed: John Sheets MDReport Verified Date/Time: 03/25/2019 10:38:33 Reading Location: [address] Neuro Reading Room MR brain without & with IV contrast 2019-03-25 10:38:00Interface, External Ris In - 03/25/2019 10:40 AM CSTFINAL REPORT MRI Brain with and without contrast Clinical History: Stroke Technique: MRI of the brain utilizing axial T1, T2, FLAIR, GRE, DWI, sagittal T1; and postgadolinium axial, sagittal, and coronal T1-weighted images. Comparisons: MRI 04/26/2016 Findings: There is acute infarction in the left cerebral deep white matter. There are small acute cortical infarcts in the left parietal lobe. There is no hemorrhage. There is achronic encephalomalacic inferomedial left cerebellar infarct with hemosiderin staining. There is no abnormal intracranial enhancement or mass. There is mild periventricular and subcortical white matter T2 hyperintensity, which is nonspecific but compatible with chronic microvascular ischemic change.There is mild generalized sulcal prominence without hydrocephalus, midline shift, or apparent mass effect. There are no extra-axial fluid collections. The craniocervical junction is preserved. The major intracranial flow-voids appear patent. IMPRESSION: Acute infarction in the deep left cerebral white matter and involving the left parietal cortex. No acute hemorrhage. Chronic left cerebellar infarctwith remote hemorrhage. No masslike intracranial enhancement. Signed: John Sheets MDRanabelort Verified Date/Time: 03/25/2019 10:38:33 Reading Location: [address] Neuro Reading Room [facility] [id number] 09:35:00 Test Item Value Reference Range Interpretation Comments Hemoglobin A1C (test code = 4548-4) 11.1 % 4.3-6.1 H Lab Interpretation (test code = Abnormal 95024-6) [facility]iumHEMOGLOBIN [id number] 09:35:00 Test Item Value Reference Range Interpretation Comments HEMOGLOBIN A1C (BEAKER) (test code = 11.1 % 4.3-6.1 H 368) 2D Echo W/O Doppler(No Doppler)2019-03-25 09:12:19Ejection FractionSLEH ECHO HEARTLAB MKCKHEIDION CPACSInterface, External Ris In - 03/25/2019 9:12 AM C STTransthoracic Echocardiography Report (TTE) Demographics Patient Name ROXY BOBBY Date of Study 03/25/2019 A Gender Female Visit Number [id number] Race Unknown Room Number 2231 Number Date of 1950 Referring Physician Rob Chauhan MD Age 68 year(s) Clinical Training Coordinator Cristobal Yu Makeup Sales Consultant Lawanda Roche Interpreting Jovanny Santoro MD Physician Procedure Type of Study TTE procedure:ECHO2D MODE W/O DOPPLER Indications:Stroke .Clinical HistoryBACK PAIN,DM,HTNHeight: 67 inches Weight: 78.02 kg (172lbs) BSA: 1.9 m^2 BMI: 26.94 kg/m^2HR: 81 bpm BP: 187/80 mmHg Summary Limited 2D exam (no Doppler) to address study indication. IV saline contrast injection was negative for a PFO (patent foramen ovale) at rest and post Valsalva . The left ventricle is chamber size (by PSLAX dimension) is normal (female - LVIDd 3.8-5.2cm) . All of the LV segments contract normally . Global LV systolic function normal. Estimated LVEF by qualitative assessment is normal (>60%) . Previous Study Compared to the previous study 05-01-16 there was no significant change. Signature Findings Left Ventricle Limited 2D exam (no Doppler) to address study indication. The left ventricle is chamber size (by PSLAX dimension) is normal (female - LVIDd 3.8-5.2cm) . Borderline concentric LV hypertrophy. All of the LV segments contract normally . Global LV systolic function normal . Estimated LVEF by qualitative assessment is normal (>60%) . Left Atrium LA size is mildly enlarged (35-41 ml/m2) .Right Ventricle The right ventricular chamber size and systolic function are within normal limits. Right Atrium RA cavity size is normal . Atrial Septum IV saline contrast injection was negative for a PFO (patent foramen ovale) at rest and post Valsalva . Aortic Valve Mild AoV cusp thickening. AoV cusp mobility is normal . Mitral Valve Mild MV leaflet thickening. Mild mitral annular calcification. Tricuspid Valve TV structure is normal. Pulmonic Valve PV is not well visualized. Aorta Aortic root size (SInus of Valsalva diameter) is normal . Pericardium No significant pericardial effusion is visualized. IVC/SVC/PA/PV/Pleural The estimated RA pressure by IVC dynamics 5-10mmHg . Chambers/Structures Left Atrium LA Volume: 69.33 ml LA Area: 21.56cm^2 LA Vol. Index: 36 ml/m^2 Left Ventricle LVIDd: 5.16 cm LV Septum Diastolic: 1.11 cm LV PW Diastolic: 1.15 cm LVOT Diameter: 2.04 cm Aorta Ao Root S of Vanesa.: 3.3 cm Doppler/Quantitative Measurements LVOT LVOT Diameter: 2.04 cm LVOT Area: 3.27 cm^2CH[facility] HospitalPO[facility]-GLU[facility]SE [id number] 08:08:00 Test Item Value Reference Range Interpretation Comments POC-GLUCOSE METER 196 mg/dL 70-110 H : TESTED A T [facility] [address] ([place]) (test code = [employer] [facility], 1538) [address]: Net Technical Architect/Techni paulette ID = [id number] for Umang Ervin POCT-GLUCOSE [id number] 07:22:00 Test Item Value Reference Range Interpretation Comments POC-GLUCOSE METER 174 mg/dL 70-110 H : TESTED A T [facility] 67[address] ([place]) (test code = [employer] [facility], 1538) [address]: Net Technical Architect/Techni paulette ID = [id number] for RUSS MACIAS Vitamin B12 and [id number] 06:37:00 Test Item Value Reference Range Interpretation Comments Vitamin B12 (test code = 2132-9) 839 pg/mL 213-816 H Folate (test code = 2284-8) 36.1 ng/mL >=7.0 Lab Interpretation (test code = Abnormal 31866-4) [facility]iumVITAMIN B12 AND [id number] 06:37:00 Test Item Value Reference Range Interpretation Comments VITAMIN B12 (BEAKER) (test code = 839 pg/mL 213-816 H 774) FOLATE (BEAKER) (test code = 362) 36.1 ng/mL >=7.0 TSH/Free T4 If [id number] 06:36:00 Test Item Value Reference Range Interpretation Comments TSH (test code = 38710-4) 1.57 0.35- 4.94 uIU/mL Lab Interpretation (test code = Normal 82241-6) [facility]iumTSH/FREE T4 IF [id number] 06:36:00 Test Item Value Reference Range Interpretation Comments THYROID STIMULATING HORMONE 1.57 uIU/mL 0.35-4.94 (BEAKER) (test code = 772) RAD, CHEST, 1 VIEW, NON [id number] 05:59:00Reason for exam:->cvaShould this be performed at the bedside?->YesFINAL REPORT History: CVA. Comparison: 04/26/2016 Findings: A single view ofthe chest is submitted. The cardiac silhouette is within normal limits for size. There is atherosclerotic calcification of the aorta. The lung volumes are slightly low. There is no focal consolidation, pneumothorax, large pleural effusion or evidence of overt pulmonary edema. There is no acute bonyabnormality. Signed: Ron Petty MDReport Verified Date/Time: 03/25/2019 05:59:01 Electronic ally signed by: RON PETTY M.D. on 03/25/2019 05:59 AMXR chest 1 view portable / [id number] 05:59:00Interface, External Ris In - 03/25/2019 6:01 AM CSTFINAL REPORT History: CVA. Comparison: 04/26/2016 Findings: A single view of the chest is submitted. The cardiac silhouette is within normal limits for size. There is atherosclerotic calcification of the aorta. The lung volumes are slightly low. There is no focal consolidation, pneumothorax, large pleural effusion or evidence of overt pulmonary edema. There is no acute bony abnormality. Signed: Ron Petty MDReport Verified Date/Time: 03/25/2019 05:59:01 [facility] [id number] 05:23:00 Test Item Value Reference Range Interpretation Comments CRP (test code = 676) 1.16 mg/dL 0-0.5 H Lab Interpretation (test code = Abnormal 95901-2) [facility]iumC-REACTIVE [id number] 05:23:00 Test Item Value Reference Range Interpretation Comments C-REACTIVE PROTEIN (BEAKER) (test 1.16 mg/dL 0.00-0.50 H code = 676) Troponin [id number] 05:16:00 Test Item Value Reference Range Interpretation Comments Troponin I (test code = <0.01 0-0.03 81636-0) LUIS E (test code = LUIS E) Troponin I (TnI) levels must be interpreted in the context of the presenting symptoms and the clinical findings. Elevated TnI levels indicate myocardial damage, but are not specific for ischemic heart disease. Elevated TnI levels are seen in patients with other cardiac conditions (including myocarditis and congestive heart failure), and slight TnI elevations occur in patients with other conditions, including sepsis, renal failure, acidosis, acute neurological disease, and persistent tachyarrhythmia. Lab Interpretation (test Normal code = 23418-2) [facility]iumTROPONIN [id number] 05:16:00 Test Item Value Reference Range Interpretation Comments TROPONIN I (BEAKER) (test code = 397) < ng/mL 0.00-0.03 Troponin I (TnI) levels must be interpreted in the context of the presenting symptoms and the clinical findings. Elevated TnI levels indicate myocardial damage, but are not specific for ischemic heart disease. Elevated TnI levels are seen in patients with other cardiac conditions (including myocarditis and congestive heart failure), and slight TnI elevations occur in patients with other conditions, including sepsis, renal failure, acidosis, acute neurological disease, and persistent tachyarrhythmia.Lipid [id number] 05:14:00 Test Item Value Reference Range Interpretation Comments Triglycerides (test 189 mg/dL Specimen code = 2571-8) slightly hemolyzed Cholesterol (test 177 mg/dL Specimen code = 2093-3) slightly hemolyzed HDL (test code = 42 mg/dL 5-9) LDL Calculated (test 97 mg/dL code = 05563-8) LUIS E (test code = Triglyceride LUIS E) Reference Range: Low Risk <150 Borderline 150-199 High Risk 200-499 Very High Risk >=500 Cholesterol Reference Range: Low Risk <200 Borderline 200-239 High Risk >240 HDL Cholesterol Reference Range: Low Risk >=60 High Risk <40 LDL Cholesterol Reference Range: Optimal <100 Near Optimal 100-129 Borderline 130-159 High 160-189 Very High >=190 [facility] METABOLIC [id number] 05:14:00 Test Item Value Reference Range Interpretation Comments SODIUM (BEAKER) 141 meq/L 136-145 (test code = 381) POTASSIUM (BEAKER) 3.3 meq/L 3.5-5.1 L Specimen slightly (test code = 379) hemolyzed CHLORIDE (BEAKER) 110 meq/L 98-107 H (test code = 382) CO2 (BEAKER) (test 24 meq/L 22-29 code = 355) BLOOD UREA NITROGEN 7 mg/dL 7-21 (BEAKER) (test code = 354) CREATININE (BEAKER) 0.71 mg/dL 0.57-1.25 Specimen slightly (test code = 358) hemolyzed GLUCOSE RANDOM 176 mg/dL 70-105 H (BEAKER) (test code = 652) CALCIUM (BEAKER) 8.4 mg/dL 8.4-10.2 (test code = 697) EGFR (BEAKER) (test 82 mL/min/1.73 ESTIMA KAILYN GFR IS code = 1092) sq m NOT ACCURATE CREATININE CLEARANCE IN PREDICTING GLOMERULAR FILTRATION RATE . ESTIMATED GFR I S NOT APPLICABLE FOR DIALYSIS PATIEN TS. LIPID [id number] 05:14:00 Test Item Value Reference Range Interpretation Comments TRIGLYCERIDES (BEAKER) 189 mg/dL Speci men slightly (test code = 540) hemolyzed CHOLESTEROL (BEAKER) 177 mg/dL Specime n slightly (test code = 631) hemolyzed HDL CHOLESTEROL (BEAKER) 42 mg/dL (test code = 976) LDL CHOLESTEROL 97 mg/dL CALCULATED (BEAKER) (test code = 633) Triglyceride Reference Range: Low Risk <150 Borderline 150-199 High Risk 200-499 Very High Risk >=500Cholesterol Reference Range: Low Risk <200 Borderline 200-239 High Risk >240HDL Cholesterol Reference Range: Low Risk >=60 High Risk <40LDL Cholesterol Reference Range: Optimal <100 Near Optimal 100-129 Borderline 130-159 High 160-189 Very High >=190CBC W/PLT COUNT & AUTO [id number] 04:54:00 Test Item Value Reference Range Interpretation Comments WHITE BLOOD CELL COUNT (BEAKER) 9.1 K/ L 3.5-10.5 (test code = 775) RED BLOOD CELL COUNT (BEAKER) 4.88 M/ L 3.93-5.22 (test code = 761) HEMOGLOBIN (BEAKER) (test code = 15.0 GM/DL 11.2-15.7 410) HEMATOCRIT (BEAKER) (test code = 43.3 % 34.1-44.9 411) MEAN CORPUSCULAR VOLUME (BEAKER) 88.7 fL 79.4-94.8 (test code = 753) MEAN CORPUSCULAR HEMOGLOBIN 30.7 pg 25.6-32.2 (BEAKER) (test code = 751) MEAN CORPUSCULAR HEMOGLOBIN CONC 34.6 GM/DL 32.2-35.5 (BEAKER) (test code = 752) RED CELL DISTRIBUTION WIDTH 12.0 % 11.7-14.4 (BEAKER) (test code = 412) PLATELET COUNT (BEAKER) (test 198 K/CU MM 150-450 code = 756) MEAN PLATELET VOLUME (BEAKER) 12.7 fL 9.4-12.3 H (test code = 754) NUCLEATED RED BLOOD CELLS 0 /100 WBC 0-0 (BEAKER) (test code = 413) NEUTROPHILS RELATIVE PERCENT 60 % (BEAKER) (test code = 429) LYMPHOCYTES RELATIVE PERCENT 30 % (BEAKER) (test code = 430) MONOCYTES RELATIVE PERCENT 7 % (BEAKER) (test code = 431) EOSINOPHILS RELATIVE PERCENT 3 % (BEAKER) (test code = 432) BASOPHILS RELATIVE PERCENT 1 % (BEAKER) (test code = 437) NEUTROPHILS ABSOLUTE COUNT 5.39 K/ L 1.56-6.13 (BEAKER) (test code = 670) LYMPHOCYTES ABSOLUTE COUNT 2.72 K/ L 1.18-3.74 (BEAKER) (test code = 414) MONOCYTES ABSOLUTE COUNT (BEAKER) 0.63 K/ L 0.24-0.36 H (test code = 415) EOSINOPHILS ABSOLUTE COUNT 0.23 K/ L 0.04-0.36 (BEAKER) (test code = 416) BASOPHILS ABSOLUTE COUNT (BEAKER) 0.06 K/ L 0.01-0.08 (test code = 417) IMMATURE GRANULOCYTES-RELATIVE 0 % 0-1 PERCENT (BEAKER) (test code = 2801) Prothrombin time/[id number] 04:20:00 Test Item Value Reference Range Interpretation Comments Protime (test code = 14.1 11.9- 14.2 5902-2) seconds INR (test code = 1.2 <=5.9 6301-6) LUIS E (test code = LUIS E) Effective 09/22/2018: PT Reference Range ChangeNew: 11.9-14.2 Previous: 11.7-14.7 RECOMMENDED COUMADIN/WARFARIN INR THERAPY RANGESSTANDARD DOSE: 2.0-3.0 Includes: PROPHYLAXIS for venous thrombosis, systemic embolization; TREATMENT for venous thrombosis and/or pulmonary embolus.HIGH RISK: Target INR is 2.5-3.5 for patients wiht mechanical heart valves. Lab Interpretation Normal (test code = 24188-6) [facility]iumPROTHROMBIN TIME/[id number] 04:20:00 Test Item Value Reference Range Interpretation Comments PROTIME (BEAKER) (test code = 14.1 seconds 11.9-14.2 759) INR (BEAKER) (test code = 370) 1.2 <=5.9 Effective 09/22/2018: PT Reference Range ChangeNew: 11.9-14.2 Previous: 11.7- 14.7RECOMMENDED COUMADIN/WARFARIN INR THERAPY RANGESSTANDARD DOSE: 2.0-3.0 Includes: PROPHYLAXIS for venous thrombosis, systemic embolization; TREATMENT for venous thrombosis and/or pulmonary embolus.HIGH RISK: Target INR is2.5-3.5 for patients wiht mechanical heart valves.
[2019-10-04 20:43] LABS: Urine Blood NEGATIVE (NEG); Urine Glucose NEGATIVE (NEG); Urine Protein NEGATIVE (NEG); Urine Specific Gravity 1.025 (1.005-1.030); Urine pH 5.5 (5.0-7.0)
== END 2019-10-04 19:36 | disposition home or self-care (01) ==
LOC: ER 15:31
DX: N39.0 Urinary tract infection, site not specified (principal); I10 Essential (primary) hypertension; E11.9 Type 2 diabetes mellitus without complications; Z86.73 Personal history of transient ischemic attack (TIA), and cerebral infarction without residual deficits; Z79.82 Long term (current) use of aspirin; Z88.5 Allergy status to narcotic agent
CPT/HCPCS: 87088; 85025; 87086; 80048; 36415; 80076; 83690; 74177; 96372; 99284; Q9967; 81003; 81015

== ENCOUNTER 2021-07-30 13:31 | Inpatient (IN) | payer OTHER ==
--- NOTE | 2021-08-02 16:02 | R.PREADM ---
PRE-ADMISSION SCREENING FORM SCREENING DATE AND TIME 07/30/2021 08:44 (CDT) ANTICIPATED REHAB ADMISSION DATE 08/01/2021 REFERRING FACILITY [facility] REFERRAL DATE AND TIME 07/29/2021 08:44 (CDT) REFERRAL ROOM# 213 ACUTE ADMIT DATE 07/28/2021 Previous Rehabilitation(s): No. 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 Bryant Guerrero M.D. MR# [id number] NAME ROXY BOBBY ADDRESS [address] [facility] [facility] [id number] DATE OF 1950 AGE 70 SSN# [id number] GENDER female MARITAL STATUS PREF. LANGUAGE (IF NON-MALTESE) Spanish ADMIT FROM 02 - [facility] PRE-HOSPITAL LIVING SETTING 01 - Home (private home/apt. board/care, assisted living, shelter, transitional living) HOME TYPE AND DETAILS Type of home: single family house # of steps to enter the residence: 0 # of levels in the residence: 1 # of steps within the residence: 0 PRE-HOSPITAL LIVING WITH Family/Relatives FAMILY SUPPORT Yes PRIMARY FAMILY CONTACT NAME CHAITANYA MENSAH PRIMARY FAMILY CONTACT PHONE PRIMARY FAMILY CONTACT RELATIONSHIP DAUGHTER PHONE PRIMARY FAMILY CONTACT ON ADM.? no IS PRIMARY FAMILY CONTACT AUTH. REP.? no 1ST EMERGENCY CONTACT CHAITANYA MENSAH 1ST CONTACT PHONE 1ST CONTACT RELATIONSHIP DAUGHTER PHONE 1ST CONTACT ON ADM. no IS 1ST CONTACT AUTH. REP.? no PHONE 2ND CONTACT ON ADM.? no PATIENT EMPLOYMENT STATUS Retired (for age) PATIENT EMPLOYER No Employer PAYOR INFORMATION[facility] 1ST [facility] 1ST PAYOR PHONE [phone] 1ST PAYOR INJURY/ILLNESS DUE TO ACCIDENT? No ANOTHER REPUBLICAN RESPONSIBLE? No PRIMARY REHAB/ACUTE DIAGNOSIS: STROKE ONSET DATE 07/28/2021 REHAB IMPAIRMENT CATEGORY (LESLEY): 01 Stroke (STR) MEETS 60% rule AFFECTED EXTREMITIES: LLE, and LUE PRIMARY DIAGNOSIS-RELATED SURGERIES: N/A INTERVENTIONS: - A-Fib monitor for complications Vitals will be monitored regularly and medications administered as indicated by Physician - CHF monitoring of patient symptoms and medication management by physician Daily weights will be obtained Regular assessment of patient vitals. - Diabetes Monitor blood glucose levels and administer medication as indicated by Physician Diet will be customized to manage diabetic needs. - HTN Blood pressure will be regularly assessed and medications administered as per physician recommendatio ns. RISK FOR COMPLICATIONS: - Skin Breakdown Nursing will assess skin daily using assessment tool and will place on Skin Breakdown Precautions as Indicated per protocol - CARDIC monitoring heart rate/signs and symptoms for cardiac distress - Weakness Regular therapeutic activity and exercise Strengthening exercises to be performed - CVA pt's blood pressures have been inconsistent and require monitoring and medication management as inidi cated by physician. pt has history of CVA. Will monitor blood pressure and manage with medication. - Diabetic Complications pt will receive a specialized diet to help manage blood glucose levels Regular monitoring and management of blood glucose levels. - Dysphagia CUT TO LENGTH OPERATOR will work on patient's ability to swallow - Pneumonia pt will be instructed on use of and be encouraged to use incentive spirometry Interval Chest X-Rays will be obtained as necessary CUT TO LENGTH OPERATOR will provide therapeutic services to improve pt's ability to safely swallow SUMMARY OF ACUTE HOSPITALIZATION: Pt. is a 70 yo Right-handed female. On 07/28/2021 Pt. presented to [facility] with sudden onset of left-side weakness. On 07/28/2021 she was admitted to [facility] with diagnosis STROKE. Her impairment category is Stroke 01 - Left Body (Right Brain) (01.1). Pre-morbidly, Pt. was independent/mod-I in Locomotion, Safety Awareness, Social Cognition, and Balanc e; and she had good Sphincter Control, Self-Care, Communication, and Endurance. Currently, she has deficits of Locomotion, Safety Awareness, Balance, Social Cognition, Transfers Con trol, Self-Care, Sphincter Control, Communication, and Endurance. Pt. is now referred to [facility] for acute in-patient rehabilitation in order to maximize patient's functional independence in activities of daily living, strength, ROM, and mobi lity. Patient has realistic goal of being discharged at assistance level 7-Ind to reside at Home with Fami ly/Relatives. PAST MEDICAL HISTORY Type 2 diabetes mellitus without complications (E11.9) HYPOTHYROIDISM HISTORY OF STROKE Essential (primary) hypertension (I10) Repeated falls (R29.6) MEDICATION ALLERGIES: No Known Drug Allergies (NKDA) ENVIRONMENTAL ALLERGIES: - Substance Allergies None Known - Other Allergies None Known CODE STATUS: Full code WEIGHT/HEIGHT/BMI: WEIGHT 180 lbs HEIGHT 5' 7" BMI 28.2 DIET: - Diet Type Regular - Diet - Solid Texture Regular - Diet - Liquid Texture Regular - Tube Feed N/A SKIN DIAGRAM: on Head; extent - small; stage - NS(Not Stageable). Treatment - . REVIEW OF SYSTEMS: - Gen Alert and awake Lying in bed No apparent distress Oriented to: person, time, and place - Vital Signs Temperature: 97.4 F SBP/DBP: 149/54 Pulse: 68 Resp: 16 Vital signs stable, afebrile - CVS RRR VITAL SIGNS Temperature: 97.4 F SBP/DBP: 149/54 Pulse: 68 Resp: 16 Vital signs stable, afebrile MEDICATIONS/TREATMENT: Other- See attached MAR (Medication Administration Record). CURRENT SPHINCTER CONTROL: Pre-hospital bladder status: unspecified # of bladder accidents in the last 7 days prior to screenin Pre-hospital bowel status: unspecified # of bowel accidents in the last 7 days prior to screenin Last Bowel Movement Date: 07/30/2021 CURRENT LOCOMOTION STATUS: distance walked 180 feet rw DETAILED CURRENT FUNCTIONAL STATUS: - Bladder accident frequency: 7-Ind - No accidents in the past 7 days - Bowel accident frequency: 7-Ind - No accidents in the past 7 days - Walking score based on distance walked: 0(N/A) score based on distance walked: 3(>=150ft) - Wheelchair score based on distance traveled: 0(N/A) QI SCORES: - Self-Care A. Eating 03-Partial/moderate assistance B. Oral hygiene 03-Partial/moderate assistance C. Toileting hygiene 03-Partial/moderate assistance E. Shower/bathe self 02-Substantial/maximal assistance F. Upper body dressing 02-Substantial/maximal assistance G. Lower body dressing 02-Substantial/maximal assistance H. Putting on/taking off footwear 88-Not attempted due to medical condition or safety concerns - Mobility A. Roll left and right 03-Partial/moderate assistance B. Sit to lying 03-Partial/moderate assistance C. Lying to sitting on side of bed 03-Partial/moderate assistance D. Sit to stand 03-Partial/moderate assistance E. Chair/kei-fy-eobur transfer 03-Partial/moderate assistance F. Toilet transfer 03-Partial/moderate assistance G. Car transfer 88-Not attempted due to medical condition or safety concerns I. Walk 10 feet 03-Partial/moderate assistance J. Walk 50 feet with two turns 03-Partial/moderate assistance K. Walk 150 feet 03-Partial/moderate assistance L. Walking 10 feet on uneven surfaces 88-Not attempted due to medical condition or safety concerns M. 1 step (curb) 88-Not attempted due to medical condition or safety concerns N. 4 steps 88-Not attempted due to medical condition or safety concerns O. 12 steps 88-Not attempted due to medical condition or safety concerns P. Picking up object 88-Not attempted due to medical condition or safety concerns R. Wheel 50 feet with two turns 88-Not attempted due to medical condition or safety concerns S. Wheel 150 feet 88-Not attempted due to medical condition or safety concerns - Bladder and Bowel Bladder continence Bowel continence - Endurance Fair - Balance Fair - Safety Awareness Fair CURRENT FUNC. DEFICITS: Self-Care, Mobility, Endurance, Balance, and Safety Awareness CURRENT / PREVIOUS ASSISTIVE DEVICES: Rolling Walker HISTORY OF FALLS. HAS THE PATIENT HAD TWO OR MORE FALLS IN THE PAST YEAR OR ANY FALL WITH INJURY IN T HE PAST YEAR?: Yes PRIOR SURGERY. DID THE PATIENT HAVE MAJOR SURGERY DURING THE 100 DAYS PRIOR TO ADMISSION?: No THERAPY NOTES FROM ACUTE CARE: Attached. SPECIAL NEEDS: - Safety Concerns Fall precautions needed due to Poor balance Skin breakdown precautions needed due to skin breakdown risk PRECAUTIONS: - Weight Bearing Precaution WBAT left LE - Fall Precaution SAFTY AND FALL PATIENT NEEDS ACTIVE AND ONGOING THERAPEUTIC INTERVENTION OF MULTIPLE THERAPY DISCIPLINES, INCLUDING: - Dietary and Nutrition Adequate Nutrition. Nutritional Education. Nutritional Supplements. Evaluate and Treat. - Occupational Therapy Cognitive Retraining. Patient needs Occupational Therapy for a daily minimum of 1.5 hours at least 5 out of 7 days, to improve Activities of Daily Living, including: Eating, Grooming, Bathing, Dressing, Toileting, Toilet Transfers, Community Reintegration, Higher functional activities, Adaptive Equipme nt, Splinting, Household Tasks, and Other activities as determined. Visual Perceptual Training. Evalu ate and Treat. Transfer Training. Safety Awareness. Patient/Family Education. ADL Training. Household Tasks. Eating. - Speech Therapy Cognitive Training. Expressive Language Skills. Memory Strategies. Patient needs Speech Therapy for a daily minimum of 1.5 hours at least 5 out of 7 days, to improve: Swallowing, Cognition, Language Ski lls, and Compensatory Strategies. Receptive Language Skills. Speech Intelligibility Training. Evaluat e and Treat. - Physical Therapy Patient needs Physical Therapy for a daily minimum of 1.5 hours at least 5 out of 7 days, to improve: Mobility, Strengthening, Transfers, Stretching, ROM, Endurance, Ability to manage stairs, Gait, and Balance. Mobility Training. Safety Awareness. Gait Training. Balance Training. Transfer Training. Sarah luate and Treat. Patient/Family Education. LE Strengthening. PATIENT NEEDS CLOSE MEDICAL SUPERVISION BY A REHABILITATION PHYSICIAN FOR: Coordination of Treatment Team Wound Care Medical and Co-Morbidity Management Pain Management DVT Management Diabetes Management PATIENT REQUIRES 24X7 REHAB NURSING FOR MEDICAL AND FUNCTIONAL MGT. OF THE FOLLOWING DEFICITS: Disease Management Medication Management Patient requires 24x7 Rehabilitation Nursing for: Pain Issues, Identifying and preventing risk factor s, Monitoring and reporting current medical conditions, Assisting with ambulation and transfer, Fior ting with all ADL-s, Teaching patients about disease process and medications, Family teaching, Provid ing safe environment, Bowel and Bladder Issues, Skin Integrity, and Medication Management Patient/Family Education Providing Safe Environment Skin Integrity Pain Management Bowel and Bladder Management PATIENT REQUIRES INTENSIVE, COORDINATED INTERDISCIPLINARY APPROACH TO REHAB: Arranging Home Equipment/Services Discharge Planning Family Intervention/Training Patient needs Dietary and Nutrition Services for: Adequate Nutrition, Nutritional Supplements, and Nu tritional Education Patient needs Corporate Development Intern and/or Case Management for: Discharge Planning, Arranging Home Equipmen t or Services, and Family Interventions Corporate Development Intern/Case Management PATIENT REHAB POTENTIAL: Neri BOBBY is able and expected to receive 3 hours of individualized therapy daily on at least 5 of leonela ry 7 days Neri RIVASs prognosis for significant practical improvement within a reasonable period of time appears Good Expected level of measurable improvement will be of a practical value to Neri BOBBY's functional capaci ty or adaptations to impairments Has a viable Discharge Plan Medically appropriate; condition is sufficiently stable to participate in intensive rehab program DISCHARGE PLAN: - Estimated Length of Stay (days) 17. - Consensus on plan Discharge plan has been discussed with primary caregiver. Patient/Family is in agreement with the danitza n. Primary caregiver is in agreement with the plan. - Patient/Family Goals Return home independently. - Planned Living Setting Upon Discharge Home, to live with Family/Relatives. Transitional Living. RECOMMENDED CARE LEVEL: IRF RECOMMENDATION DETAILS: Recommended Admission to Comprehensive Rehabilitation Program to Increase Functional [place] SCREENER'S COMPLETENESS CONFIRMATION: - Screening Confirmation The patient data collection on this preadmission screening form is finished PHYSICIANS REVIEW AND ADMISSION DETERMINATION Admit - Based on my review of the Pre-Admission Screening results, in my medical judgment and experie nce, I concur with the findings and recommend admission to [facility], as this patient requires an IRF level of care. SIGNATURE PANEL: Mapping Technician - [electronically] signed by Godfrey Tinajero on 08/02/2021 at 15:10 (CDT) Mapping Technician - [electronically] signed by Yang Samano PT on 08/02/2021 at 15:55 (CDT) Physician Reviewer - [electronically] signed by Dr. Bryant Guerrero M.D. on 08/02/2021 at 16:00 (CDT )
--- OUTSIDE RECORDS SUMMARY | 2021-08-04 15:38 | XMS REPORT | Continuity of Care Document ---
:1950 Author Organization [facility] t Address [address] [place] [address] Dr. Fuller [address] [place] [address] Care Team Providers Name Role Phone Carla Tony MD Attending Clinician [phone] MASHA CHAUHAN Attending Clinician Unavailable LAUREN Admitting Clinician Unavailable Payers Payer Name Policy Type Policy Number Effective Date Expiration Date S ource Problems Condition Condition Condition Status Onset Resolution Last Treating Co mments Source Name Details Category Date Date Treatment Clinician Date Diabetes Diabetes Disease Active [facility] (HCCode) (HCCode) 06-15 Colleg e 00:00: of 00 Medicin e Hypothyroi Hypothyroi Disease Active [facility] dism dism 06-15 00:00: of 00 Medicin e Hypertensi Hypertensi Disease Active [facility] on on 06-15 00:00: of 00 Medicin e Stroke Stroke Disease Active [facility] (cerebrum) (cerebrum) 06-15 Co llege (HCCode) (HCCode) 00:00: of 00 Medicin e Allergies, Adverse Reactions, Alerts Allergy Allergy Status Severity Reaction(s) Onset Inactive Treating Comm ents Source Name Type Date Date Clinician Codeine Propensi Active 2018-04 [facility] ty to 05-29 adverse 00:00: of reaction 00 Medicin s to e drug Social History Social Habit Start Date Stop Date Quantity Comments Source History [facility] ge Alcohol Std Drinks of Med icine History [facility] ge Alcohol Binge of Medicine Sex Assigned At [facility] Alcohol intake 2019-06-15 2019-06-15 Lifetime [facility] 00:00:00 00:00:00 non-drinker of Medicine (finding) History SDOH 2019-03-28 2019-03-28 1 [facility] Alcohol Frequency 00:00:00 00:00:00 of [facility] Smoking Status Start Date Stop Date Source Never smoker [facility] o f Medicine Medications Ordered Filled Start Stop Current Ordering Indication Dosage Frequency Signature Comments Components Source Medication Medication Date Date Medication? Clinician (SIG) Name Name clonidine 2020-0 Yes .2mg Take 0.2 [facility] (CATAPRESS) 2-19 mg by Mc[facility] 0.2 MG 20:34: mouth as of tablet 40 needed. Medicin e atenolol 2020-0 Yes 100mg Take 100 [facility] (TENORMIN) 2-19 mg by [facility] 100 MG 20:34: mouth two of tablet 04 times Medicin daily. e diltiazem 2020-0 Yes 120mg Take 120 [facility]ene 120 MG TABS 2-19 mg by [facility] 20:34: mouth two of 04 times Medicin daily. e furosemide 2020-0 Yes 40mg Take 40 mg [facility] (LASIX) 40 2-19 by mouth Colle ge MG tablet 20:34: two times of 04 daily. Medicin e glimepiride 2020-0 Yes 4mg Take 4 mg [facility] (AMARYL) 4 2-19 by mouth Colle ge MG tablet 20:34: two times of 04 daily. Medicin e Lansoprazol 2020-0 Yes 15mg Take 15 mg Eusebio e 15 MG 2-19 by mouth College TBDD 20:34: daily. of 04 Medicin e lisinopril 2020-0 Yes 40mg Take 40 mg [facility] (PRINIVIL, 2-19 by mouth Colle ge ZESTRIL) 40 20:34: two times o f MG tablet 04 daily. Medicin e pantoprazol 2020-0 Yes 40mg Take 40 mg Eusebio e 2-19 by mouth [facility] (PROTONIX) 20:34: daily. of 40 MG 04 Medicin tablet e potassium 2020-0 Yes 10meq Take 10 [facility] chloride 2-19 mEq by [facility] (KDUR) 10 20:34: mouth of MEQ tablet 04 daily. Medicin e gabapentin 2020-0 Yes 100mg Take 100 [facility] (NEURONTIN) 2-19 mg by Mc[facility]mitt 100 MG 20:34: mouth 3 of capsule 04 times Medicin daily. e aspirin 81 2020- Yes 81mg Take 81 mg [facility] MG tablet 06-15 by mouth Colleg e 20:34: daily. of 04 Medicin e THYROID OR 2019- No 30mg Take 30 mg [facility] 06-15 by mouth College 20:33: 00:00 daily. of 56 :00 Take every Medicin morning on e a empty stomach. clonidine 2019- No .2mg Take 0.2 [facility] (CATAPRESS) 06-15 mg by Colleg e 0.2 MG 20:33: 00:00 mouth 3 of tablet 53 :00 times Medicin daily. e atorvastati 2019- No 80mg Take 80 mg [facility] n (LIPITOR) 06-15 by mouth Col lege 80 MG 20:33: 00:00 daily. of tablet 50 :00 Medicin e Vital Signs Vital Name Observation Time Observation Value Comments Source Systolic blood 2019-06-15 20:42:00 130 mm[Hg] [facility] pressure Medicine Diastolic blood 2019-06-15 20:42:00 78 mm[Hg] [facility] pressure Medicine Heart rate 2019-06-15 20:32:00 49 /min [facility] Body height 2019-06-15 20:32:00 170.2 cm [facility] Body weight 2019-06-15 20:32:00 77.111 kg [facility] BMI 2019-06-15 20:32:00 26.63 kg/m2 [facility] Systolic blood 2019-06-15 20:42:00 130 mm[Hg] [facility] pressure Medicine Diastolic blood 2019-06-15 20:42:00 78 mm[Hg] [facility] Medicine Heart rate 2019-06-15 20:32:00 49 /min [facility] Body height 2019-06-15 20:32:00 170.2 cm [facility] Body weight 2019-06-15 20:32:00 77.111 kg [facility] BMI 2019-06-15 20:32:00 26.63 kg/m2 [facility] Procedures This patient has no known procedures. Plan of Care Planned Activity Planned Date Details Comments Source Future Scheduled ELECTROCARDIOGRAM COMPLETE [facility] Test [code = 98658] Medicine Future Scheduled COLON CANCER SCREENING: [facility] Test COLONOSCOPY [code = COLON Me dicine CANCER SCREENING: COLONOSCOPY] Future Scheduled MAMMOGRAM ANNUAL [code = [facility] of Test MAMMOGRAM ANNUAL] Medicine Future Scheduled TETANUS SHOT (ADULT) [code [facility] of Test = TETANUS SHOT (ADULT)] Medi cine Future Scheduled BMI FOLLOW UP PLAN [code = [facility] of Test BMI FOLLOW UP PLAN] Medicine Future Scheduled HEPATITIS C SCREENING [code [facility] of Test = HEPATITIS C SCREENING] Med icine Future Scheduled FALL SCREEN [code = FALL [facility] of Test SCREEN] Medicine Future Scheduled OSTEOPOROSIS SCREENING B [facility] Test [code = OSTEOPOROSIS Medicin e SCREENING] Future Scheduled PNEUMOVAX >=65 (PPSV23) [facility] Test [code = PNEUMOVAX >=65 Medic ine (PPSV23)] Future Scheduled PREVNAR >= 65 (PCV13) [code [facility] Test = PREVNAR >= 65 (PCV13)] Med icine Future Scheduled MEDICARE AWV (Initial) B [facility] Test [code = MEDICARE AWV Medicin e (Initial)] Future Scheduled FLU VACCINE > 6 MONTHS B [facility] Test [code = FLU VACCINE > 6 Medi cine MONTHS] Encounters Start End Encounter Admission Attending Care Care Encounter Source Date/Time Date/Time Type Type Clinicians Facility Department ID 2019-06-15 2019-06-15 Office [facility] [id number] 14:23:16 15:20:30 Visit Mattie AMBULATOR [id number] Carri Y [id number] Carla [id number] 300 2019-06-15 2019-06-15 Office [facility] [id number] [place] [address] 14:23:16 15:20:30 Visit Mattie, AMBULATOR [id number] [facility] Carri Y [id number] Carla [id number] Medi zach 300 e Results Test Description Test Time Test Comments Results Result Comments Source RPR 2019-03-27 04:27:00 Test Item Value Reference Range Interpretation Comme nts RPR SCREEN (BEAKER) (test code = 420) Nonreactive Nonreactive POCT-GLUCOSE [id number] 16:12:00 Test Item Value Reference Range Interpretation Comments POC-GLUCOSE METER 278 mg/dL 70-110 H : TESTED A T [facility] 6720 (BEAKER) (test code = [facility], 1538) [id number]: [employer]/Techni paulette ID = [id number] for AK INSONU, SANJUANA POCT-GLUCOSE [id number] 13:34:00 Test Item Value Reference Range Interpretation Comments POC-GLUCOSE METER 349 mg/dL 70-110 H : TESTED A T [facility] 6720 (BEAKER) (test code = [facility], 1538) [id number]: [employer] paulette ID = [id number] for [place] INSONU, SANJUANA POCT-GLUCOSE [id number] 08:38:00 Test Item Value Reference Range Interpretation Comments POC-GLUCOSE METER 247 mg/dL 70-110 H : TESTED A T [facility] 6720 (BEAKER) (test code = [facility], 1538) [address]: [employer] paulette ID = [id number] for [place] INSONU, SANJUANA [id number] 05:38:00 Test Item Value Reference Range Interpretation Comments MAGNESIUM (BEAKER) 1.9 mg/dL 1.6-2.6 Specimen moderately (test code = 627) hemolyzed BASIC METABOLIC [id number] 05:38:00 Test Item Value Reference Range Interpretation [...] NOT APPLICABLE FOR DIALYSIS PATIEN TS. CBC W/PLT COUNT & AUTO [id number] 05:14:00 Test Item Value Reference Range Interpretation [...] PERCENT (BEAKER) (test code = 2801) POCT-GLUCOSE [id number] 23:24:00 Test Item Value Reference Range Interpretation Comments POC-GLUCOSE METER 296 mg/dL 70-110 H : Notified RN/MD: (DONTE) (test code = TESTED AT [facility] 6720 1538) [facility], [id number]: [employer]/Techni paulette ID = [id number] for Shereen Howe POCT-GLUCOSE [id number] 20:42:00 Test Item Value Reference Range Interpretation Comments POC-GLUCOSE METER 327 mg/dL 70-110 H : Notified RN/MD: (DONTE) (test code = TESTED AT [facility] 6720 1538) [facility], [address]: [employer]/Techni paulette ID = [id number], CTANGIO [id number] 15:43:00FINAL REPORT CLINICAL HISTORY: Stroke, follow up [...] Makenzie Amor MDReport Verified Date/Time: 03/25/2019 15:43:37 CT, CAROTID, [id number] 15:43:00FINAL REPORT CLINICAL HISTORY: Stroke, follow up [...] Signed: Makenzie Amor Verified Date/Time: 03/25/2019 15:43:37 POCT-GLUCOSE [id number] 15:11:00 Test Item Value Reference Range Interpretation Comments POC-GLUCOSE METER 223 mg/dL 70-110 H : TESTED A T [facility] 6720 (BEAKER) (test code = ALINA Padilla [facility], 1538) [id number]: [employer]/Techni paulette ID = [id number] for Idalia Obrien MR, BRAIN, [id number] 10:38:00FINAL REPORT MRI Brain with and without [...] hemorrhage. No masslike intracranial enhancement. Signed: John Gaxiola Verified Date/Time: 03/25/2019 10:38:33 Reading Location: [facility] C013 Neuro Reading Room HEMOGLOBIN [id number] 09:35:00 Test Item Value Reference Range Interpretation Comments HEMOGLOBIN A1C (BEAKER) (test code = 11.1 % 4.3-6.1 H 368) POCT-GLUCOSE [id number] 08:08:00 Test Item Value Reference Range Interpretation Comments POC-GLUCOSE METER 196 mg/dL 70-110 H : TESTED A T [facility] 6720 (BEAKER) (test code = [facility], 1538) [id number]: [employer]/Techni paulette ID = [id number] for Umang Ervin POCT-GLUCOSE [id number] 07:22:00 Test Item Value Reference Range Interpretation Comments POC-GLUCOSE METER 174 mg/dL 70-110 H : TESTED A T [facility] 6720 (BEAKER) (test code = [facility], 1538) [address]: [employer]i paulette ID = [id number] for RUSS MACIAS VITAMIN B12 AND [id number] 06:37:00 Test Item Value Reference Range Interpretation Comments VITAMIN B12 (BEAKER) (test code = 839 pg/mL 213-816 H 774) FOLATE (BEAKER) (test code = 362) 36.1 ng/mL >=7.0 TSH/FREE T4 IF [id number] 06:36:00 Test Item Value Reference Range Interpretation Comments THYROID STIMULATING HORMONE 1.57 uIU/mL 0.35-4.94 (BEAKER) (test code = 772) RAD, CHEST, 1 VIEW, NON [id number] 05:59:00Reason for exam:->cvaShould this be performed at [...] There is no acute bonyabnormality. Signed: Ron Ramírez MDReport Verified Date/Time: 03/25/2019 05:59:01 Electronic ally signed by: RON RAMÍREZ M.D. on 03/25/2019 05:59 [facility]-REACTIVE PROTEIN 2019-03-25 05:23:00 Test Item Value Reference Range Interpretation Comments C-REACTIVE PROTEIN (BEAKER) (test 1.16 mg/dL 0.00-0.50 H code = 676) TROPONIN [id number] 05:16:00 Test Item Value Reference Range Interpretation [...] failure, acidosis, acute neurological disease, and persistent tachyarrhythmia.BASIC METABOLIC [id number] 05:14:00 Test Item Value Reference Range Interpretation [...] NOT APPLICABLE FOR DIALYSIS PATIEN TS. LIPID [id number] 05:14:00 Test Item Value Reference Range Interpretation [...] Very High >=190CBC W/PLT COUNT & AUTO [id number] 04:54:00 Test Item Value Reference Range Interpretation [...] 0-1 PERCENT (BEAKER) (test code = 2801) PROTHROMBIN [id number] 04:20:00 Test Item Value Reference Range Interpretation [...]
[2021-08-04] MEDS ORDERED: D50W 25 GM/50 ML SYRINGE IV PRN (16:24)
[2021-08-04] MEDS ORDERED: GLUCAGON 1 MG/VIAL IM PRN (16:24)
[2021-08-04] MEDS: INSULIN -REGULAR HUMAN 50 UNIT/0.5 ML ML SQ SCH ×2 (17:20→20:41)
[2021-08-04 18:20] VITALS: BMI 28.1
--- NOTE | 2021-08-04 19:20 | RAD REPORT ---
EXAM DESCRIPTION: CT - Head Brain Wo Cont - 08/04/2021 7:08 pm CLINICAL HISTORY: R/O hemorhagic coversion COMPARISON: Ct Stroke Brain Wo Cont dated 07/28/2021; Head angio dated 03/24/2019; Brain W/Wo Cont kylie ed 07/29/2021 TECHNIQUE: All CT scans are performed using dose optimization technique as appropriate and may inclu de automated exposure control or mA/KV adjustment according to patient size. FINDINGS: No intracranial hemorrhage, hydrocephalus or extra-axial fluid collection.No areas of brai n edema or evidence of midline shift. Remote left cerebellar infarct. Pontine infarcts again identifi ed. The paranasal sinuses and mastoids are clear. The calvarium is intact. IMPRESSION: Subacute pontine infarct. No new infarcts or evidence of acute intracranial hemorrhage i dentified.
[2021-08-04 19:41] LABS: Urine Appearance CLEAR (Clear); Urine Bilirubin NEGATIVE (Negative); Urine Blood NEGATIVE (Negative); Urine Color YELLOW (Yellow); Urine Glucose 1+ (Negative); Urine Protein NEGATIVE (Negative); Urine Specific Gravity 1.015 (1.005-1.030); Urine Urobilinogen 0.2 mg/dL (0.2-1.0); Urine pH 5.5 (5.0-7.0)
[2021-08-04 20:03] LABS: Urine Bacteria <20 /HPF (<20); Urine RBC NONE SEEN /HPF (NONE SEEN)
[2021-08-04] MEDS: GABAPENTIN 300 MG CAP PO SCH (20:42)
[2021-08-04] MEDS: LOSARTAN POTASSIUM 50 MG TABLET PO SCH (20:42)
[2021-08-04] MEDS: LATANOPROST 0.005% 2.5ML OPTH OPTH SCH (20:42)
[2021-08-04] MEDS: ATORVASTATIN 40 MG TAB PO SCH (20:43)
[2021-08-04] MEDS: atenoloL 25 MG TAB PO SCH (20:43)
[2021-08-05 05:50] LABS: Absolute Lymphocytes (CBC) 2.9 K/uL (0.7-4.9); Hematocrit 43.4 % (36.0-45.0); Lymphocytes % 34.4 % (15.3-44.8); MPV 11.7 fL (7.6-11.3); RBC Red Blood Cell Count 4.66 M/uL (3.86-4.86)
[2021-08-05 06:17] LABS: Albumin 2.5 g/dL (3.4-5.0); Magnesium 2.3 mg/dL (1.8-2.4); Potassium 4.2 mmol/L (3.5-5.1); Prealbumin 23.2 mg/dL (20-40)
[2021-08-05] MEDS: ENOXAPARIN 40 MG/0.4 ML SQ SCH (07:00)
[2021-08-05] MEDS: INSULIN -REGULAR HUMAN 50 UNIT/0.5 ML ML SQ SCH ×4 (07:30→20:21)
[2021-08-05] MEDS: LEVOTHYROXINE SOD 0.05 MG TABLET PO SCH (07:36)
[2021-08-05] MEDS: LOSARTAN POTASSIUM 50 MG TABLET PO SCH ×2 (07:57→20:21)
[2021-08-05] MEDS: CLOPIDOGREL 75 MG TABLET PO SCH (07:57)
[2021-08-05] MEDS: PIOGLITAZONE 15 MG TAB PO SCH (07:57)
[2021-08-05] MEDS: ASPIRIN EC 81 MG TAB PO SCH (07:57)
[2021-08-05] MEDS: TRAMADOL HCL 50 MG TAB PO PRN (07:57)
[2021-08-05] MEDS: GLIMEPIRIDE 2 MG TABLET PO SCH (07:58)
[2021-08-05] MEDS: GABAPENTIN 300 MG CAP PO SCH ×3 (07:58→20:21)
[2021-08-05] MEDS ORDERED: ALOGLIPTIN BENZOATE 12.5 MG TABLET PO SCH (08:00)
[2021-08-05] MEDS: INSULIN GLARGINE 100 UNIT/ML SQ SCH (08:13)
[2021-08-05] MEDS: atenoloL 25 MG TAB PO SCH ×2 (08:14→20:20)
[2021-08-05] MEDS: ALOGLIPTIN BENZOATE 12.5 MG TABLET PO SCH (08:14)
[2021-08-05] MEDS: DILTIAZEM HCL 120 MG SR CAP PO SCH (08:16)
--- NOTE | 2021-08-05 15:00 | RAD REPORT ---
EXAM DESCRIPTION: MRI - Brain W/Wo Cont - 08/05/2021 2:43 pm CLINICAL HISTORY: To evaluate stroke progression Headache, CVA COMPARISON: Head Brain Wo Cont dated 08/04/2021 TECHNIQUE: Multi-sequence, multiplanar MR imaging of the brain was performed with contrast. FINDINGS: No intracranial hemorrhage, hydrocephalus, or extra-axial fluid collection. No edema or sh ift of midline structures. No intracranial mass. Previously noted right acute pontine infarct has mil dly increased in size currently measuring 21 x 15 mm.. Old infarct again noted left cerebellar hemisp here is well as the left cerebellum. The midline structures are normally formed. Mastoid air cells and paranasal sinuses are clear. Post-contrast images show no abnormal enhancement to suggest tumor or infection. IMPRESSION: Mild increase right pontine infarct size since prior study. No hemorrhage or pathologic enhancement evident.
--- NOTE | 2021-08-05 17:33 | R.HP ---
HISTORY AND PHYSICAL FACILITY: [facility] ENCOUNTER DATE AND TIME: 08/05/2021 17:26 (CDT) MR#: [id number] NAME ROXY BOBBY ADDRESS: [address] [place] [address] CITY: [place] ZIP [id number] PHONE: DATE OF : 1950 AGE: 70 SSN# [id number] GENDER: Female MARITAL STATUS PRE-HOSPITAL LIVING SETTING 01 - Home (private home/apt. board/care, assisted living, alf, transitional living) PRE-HOSPITAL LIVING WITH Family/Relatives ENCOUNTER PHYSICIAN: Dr. Bryant Guerrero M.D. REFERRING DOCTOR: DATE OF ADMISSION: 08/04/2021 15:34 (CDT) REFERRING FACILITY [facility] HOME TYPE AND DETAILS: Type of home: single family house # of steps to enter the residence: 0 # of levels in the residence: 1 # of steps within the residence: 0 ONSET DATE: 07/28/2021 PRIMARY DIAGNOSIS-RELATED SURGERIES: N/A HISTORY OF PRESENT ILLNESS (HPI): Pt. is a 70 yo Right-handed female. On 07/28/2021 Pt. presented to [facility] with sudden onset of left-side weakness. On 07/28/2021 she was admitted to [facility] with diagnosis STROKE. Her impairment category is Stroke 01 - Left Body (Right Brain) (01.1). Pre-morbidly, Pt. was independent/mod-I in Locomotion, Safety Awareness, Social Cognition, and Balanc e; and she had good Sphincter Control, Self-Care, Communication, and Endurance. Currently, she has deficits of Locomotion, Safety Awareness, Balance, Social Cognition, Transfers Con trol, Self-Care, Sphincter Control, Communication, and Endurance. Pt. is now referred to [facility] for acute in-patient rehabilitation in order to maximize patient's functional independence in activities of daily living, strength, ROM, and mobi lity. Patient has realistic goal of being discharged at assistance level 7-Ind to reside at Home with Fami ly/Relatives. MEDICATION ALLERGIES: No Known Drug Allergies (NKDA) ENVIRONMENTAL ALLERGIES: - Substance Allergies None Known - Other Allergies None Known PAST MEDICAL HISTORY: Type 2 diabetes mellitus without complications (E11.9) HYPOTHYROIDISM HISTORY OF STROKE Essential (primary) hypertension (I10) Repeated falls (R29.6) SOCIAL HISTORY: - Home Living Family/Relatives REVIEW OF SYSTEMS: - Gen No Chills Fatigue No Fever - Eyes No Double Vision No itchiness - ENMT Difficulty Swallowing - CVS No Chest Discomfort No Chest Pain Fatigue No Weight Gain - Resp No Cough No Shortness of Breath - GI Continent No Abdominal Pain No Constipation No Diarrhea - Continent No Kidney Pain No Painful Urination No Urinary Urgency - MSK No Joint Pain Muscle Cramps Stiffness - Skin No Itching No Rash No Suspicious Lesions - Neuro Coordination Difficulty Difficulty with Concentration No Memory Loss No Seizures Weakness - Psych No Anxiety No Depression No HIV Exposure No Persistent Infections No Seasonal Allergies - Endo No Cold/Heat Intolerance No Excessive Hunger No Excessive Thirst No Excessive Urination PHYSICAL EXAM - Gen Alert and awake Lying in bed No apparent distress Oriented to: person, time, and place - Skin No breakdown Mild left facial numbness and weakness. - Eyes No abnormalities - ENMT No abnormalities - Neck No abnormalities - CVS RRR - Chest No abnormalities - Abd Soft - GI Soft Deferred - No abnormalities - Ext No significant edema - MSK 3+ to 4+/5 weakness in left upper and lower extremity - Neuro 3+ to 4+/5 weakness in left upper and lower extremity - Psych No abnormalities VITAL SIGNS Temperature: 98.4 F SBP/DBP: 140/57 Pulse: 66 Resp: 15 NURSING: - Shower allowing shower - Bladder care per protocol - Skin care per protocol PRECAUTIONS: - Weight Bearing Precaution WBAT left LE - Fall Precaution SAFTY AND FALL ACTIVITIES OOB only with supervision QI SCORES: - Self-Care A. Eating 03-Partial/moderate assistance B. Oral hygiene 03-Partial/moderate assistance C. Toileting hygiene 03-Partial/moderate assistance E. Shower/bathe self 02-Substantial/maximal assistance F. Upper body dressing 02-Substantial/maximal assistance G. Lower body dressing 02-Substantial/maximal assistance H. Putting on/taking off footwear 88-Not attempted due to medical condition or safety concerns - Mobility A. Roll left and right 03-Partial/moderate assistance B. Sit to lying 03-Partial/moderate assistance C. Lying to sitting on side of bed 03-Partial/moderate assistance D. Sit to stand 03-Partial/moderate assistance E. Chair/cug-lx-awsdj transfer 03-Partial/moderate assistance F. Toilet transfer 03-Partial/moderate assistance G. Car transfer 88-Not attempted due to medical condition or safety concerns I. Walk 10 feet 03-Partial/moderate assistance J. Walk 50 feet with two turns 03-Partial/moderate assistance K. Walk 150 feet 03-Partial/moderate assistance L. Walking 10 feet on uneven surfaces 88-Not attempted due to medical condition or safety concerns M. 1 step (curb) 88-Not attempted due to medical condition or safety concerns N. 4 steps 88-Not attempted due to medical condition or safety concerns O. 12 steps 88-Not attempted due to medical condition or safety concerns P. Picking up object 88-Not attempted due to medical condition or safety concerns R. Wheel 50 feet with two turns 88-Not attempted due to medical condition or safety concerns S. Wheel 150 feet 88-Not attempted due to medical condition or safety concerns - Bladder and Bowel Bladder continence Bowel continence - Endurance Fair - Balance Fair - Safety Awareness Fair CURRENT FUNC. DEFICITS: Self-Care, Mobility, Endurance, Balance, and Safety Awareness MEDICATIONS: - Other See attached MAR (Medication Administration Record) ASSESSMENT: Pt. is a 70 yo Right-handed female.On 07/28/2021 Pt. presented to [facility] with sudden onset of left-side weakness.On 07/28/2021 she was admitted to [facility] with diagnosis STROKE.Her impairment category is Stroke 01 - Left Body (Right Brain) (01.1).Pre-morbidly, Pt. was independent/mod-I in Locomotion, Safety Awareness, Social Cognition, and Balance; and she had good Sp hincter Control, Self-Care, Communication, and Endurance.Currently, she has deficits of Locomotion, S afety Awareness, Balance, Social Cognition, Transfers Control, Self-Care, Sphincter Control, Communic ation, and Endurance.Pt. is now referred to [facility] for acute in-patient re habilitation in order to maximize patient's functional independence in activities of daily living, st rength, ROM, and mobility.- Rehab Goal Patient has realistic goal of being discharged at assistance level 7-Ind to reside at Home with Fami ly/Relatives. for Dementia, TBI, Stroke, or others - Physical Therapy Gait dysfunction - to improve, our physical therapists will perform initial evaluation of pt's status upon admission and devise an individualized program for Gait Training, and Wheel Chair mobility Inability to transfer - to improve, our physical therapists will perform initial evaluation of pt's s tatus upon admission and devise an individualized program for Bed mobility Need for home safety evaluation - to improve, our physical therapists will perform initial evaluation of pt's status upon admission and devise an individualized program for Home Evaluation Need in caregiver upon discharge - to improve, our physical therapists will perform initial evaluatio n of pt's status upon admission and devise an individualized program for Caregiver Training New precaution - to improve, our physical therapists will perform initial evaluation of pt's status u barbi admission and devise an individualized program for Patient precaution education Edema - to improve, our physical therapists will perform initial evaluation of pt's status upon admi ssion and devise an individualized program for Elevation Training, and Lymphedema Therapy Poor balance - to improve, our physical therapists will perform initial evaluation of pt's status upo n admission and devise an individualized program for Balance Training Poor endurance - to improve, our physical therapists will perform initial evaluation of pt's status u barbi admission and devise an individualized program for Endurance Training Weakness - to improve, our physical therapists will perform initial evaluation of pt's status upon ad mission and devise an individualized program for Aquatic Therapy, Neuromuscular Reeducation, and Stre ngthening Achieving independence - to improve, our physical therapists will perform initial evaluation of pt's status upon admission and devise an individualized program for Community Reintegration Activities - Occupational Therapy ADL deficits - to improve, our occupation therapists will perform initial evaluation of pt's status u barbi admission and devise an individualized program for Bathing, Bed mobility, Community Reintegration , Cooking, Dressing, Eating, Fine Motor Skills, Grooming, Homemaking, Kitchen Mobility, Laundry, Fatem[place] ent Education, Safety Awareness, Splinting - Positioning, Transfers(Toilet, Tub, Shower), and Wheel C hair Management Cognitive deficits - to improve, our occupation therapists will perform initial evaluation of pt's st atus upon admission and devise an individualized program for Cognition - orientation Need for pet care worker - to improve, our occupation therapists will perform initial evaluation of pt's s tatus upon admission and devise an individualized program for Caregiver Training Weakness - to improve, our occupation therapists will perform initial evaluation of pt's status upon admission and devise an individualized program for Aquatic Therapy, Balance, Endurance, UE ROM, and U E strengthening MEDICAL PLAN: - Diet Type Start Regular - Diet - Liquid Texture Start Regular - Tube Feed Start N/A - Bladder care per protocol - Weight Bearing Precaution WBAT left LE - Fall Precaution Bed alarm SAFTY AND FALL TABS alarm Wheel chair alarm - Skin care per protocol - Other See attached MAR (Medication Administration Record) - Diet - Solid Texture Regular - Shower shower DISCHARGE PLAN: - Estimated Length of Stay (days) 17. - Consensus on plan Discharge plan has been discussed with primary caregiver. Patient/Family is in agreement with the danitza n. Primary caregiver is in agreement with the plan. - Patient/Family Goals Return home independently. - Planned Living Setting Upon Discharge Home, to live with Family/Relatives. Transitional Living. SIGNATURE PANEL: (CDT)
--- NOTE | 2021-08-05 17:33 | PAPE ---
POST ADMISSION PHYSICIAN EVALUATION PATIENT: [facility] MR# [id number] REFERRING DOCTOR EVALUATION DATE AND TIME 08/05/2021 17:32 (CDT) NAME ROXY BOBBY DATE OF 1950 AGE 70 PHONE SSN# [id number] GENDER female EVALUATING PHYSICIAN Dr. Bryant Guerrero M.D. ADMISSION DIAGNOSIS: STROKE ONSET DATE 07/28/2021 POST-ADMISSION FUNCTIONAL/MEDICAL STATUS: - Bladder Same accident frequency: 7-Ind - No accidents in the past 7 days - Bowel Same accident frequency: 7-Ind - No accidents in the past 7 days - Walking Same score based on distance walked: 0(N/A) Same score based on distance walked: 3(>=150ft) - Wheelchair Same score based on distance traveled: 0(N/A) STATUS CHANGE EVALUATION: No change in Functional or Medical Status is identified compared with Pre-Admission screening. PATIENT NEEDS CLOSE MEDICAL SUPERVISION BY A REHABILITATION PHYSICIAN FOR: Coordination of Treatment Team Wound Care Medical and Co-Morbidity Management Pain Management DVT Management Diabetes Management PATIENT REQUIRES 24X7 REHAB NURSING FOR MEDICAL AND FUNCTIONAL MGT. OF THE FOLLOWING DEFICITS: Disease Management Medication Management Patient requires 24x7 Rehabilitation Nursing for: Pain Issues, Identifying and preventing risk factor s, Monitoring and reporting current medical conditions, Assisting with ambulation and transfer, Fior ting with all ADL-s, Teaching patients about disease process and medications, Family teaching, Provid ing safe environment, Bowel and Bladder Issues, Skin Integrity, and Medication Management Patient/Family Education Providing Safe Environment Skin Integrity Pain Management Bowel and Bladder Management PATIENT REQUIRES INTENSIVE, COORDINATED INTERDISCIPLINARY APPROACH TO REHAB: Arranging Home Equipment/Services Discharge Planning Family Intervention/Training Patient needs Dietary and Nutrition Services for: Adequate Nutrition, Nutritional Supplements, and Nu tritional Education Patient needs Administrator Pesticide and/or Case Management for: Discharge Planning, Arranging Home Equipmen t or Services, and Family Interventions Administrator Pesticide/Case Management LIST OF IDENTIFIED AND POTENTIAL PROBLEMS: Alteration in leisure activities Bladder, Incontinence Bowel, Incontinence Falls, Actual or Potential Infection, Actual or Potential Mobility Impaired Pain, Alteration in Comfort Self Care Deficit Skin Integrity, Actual or Potential Urinary Tract Infection (UTI), Actual or Potential RISK FOR COMPLICATIONS - Skin Breakdown Nursing will assess skin daily using assessment tool and will place on Skin Breakdown Precautions as Indicated per protocol. - CARDIC monitoring heart rate/signs and symptoms for cardiac distress. - Weakness Regular therapeutic activity and exercise. Strengthening exercises to be performed. - CVA pt's blood pressures have been inconsistent and require monitoring and medication management as inidi cated by physician. pt has history of CVA. Will monitor blood pressure and manage with medication. - Diabetic Complications pt will receive a specialized diet to help manage blood glucose levels. Regular monitoring and manage ment of blood glucose levels. - Dysphagia OUTBOARD MOTORS EXPERIMENTAL MECHANIC will work on patient's ability to swallow. - Pneumonia pt will be instructed on use of and be encouraged to use incentive spirometry. Interval Chest X-Rays will be obtained as necessary. OUTBOARD MOTORS EXPERIMENTAL MECHANIC will provide therapeutic services to improve pt's ability to safel y swallow. INTERVENTIONS - A-Fib monitor for complications. Vitals will be monitored regularly and medications administered as indicat ed by Physician. - CHF monitoring of patient symptoms and medication management by physician. Daily weights will be obtained . Regular assessment of patient vitals. - Diabetes Monitor blood glucose levels and administer medication as indicated by Physician. Diet will be custom ized to manage diabetic needs. - HTN Blood pressure will be regularly assessed and medications administered as per physician recommendatio ns. PATIENT COULD BE AT RISK FOR COMPLICATIONS FROM ADVERSE MEDICAL CONDITIONS DUE TO HIS/HER COMORBIDITI ES AND THE RIGORS OF THE INTENSIVE REHABILLITATION PROGRAM. METHODS OR INTERVENTIONS TO AVOID COMPLIC ATIONS INCLUDE: - Deep Vein Thrombosis (DVT) Prophylaxis therapy for prevention . Sequential Compression Device (SCD). TE D Hose. - Bleeding Assess lab values and manage abnormalities. Nursing to teach precautions for anti-coagulation therapy . Stroke patients assessed for lethargy or change in status. Wound to be assessed every shift. - Infection Clinical staff to assess and manage the signs and symptoms of infection including fever, redness, war mth, etc. - Urinary Tract Infection - Aspiration Clinical staff will assess and manage coughing, drooling, congestion. - Falls Patient will be evaluated for Fall Precautions and will be placed on Fall Precautions as indicated pe r protocol. - Skin Breakdown Nursing will assess skin daily using assessment tool and will place on Skin Breakdown Precautions as indicated per protocol. - Pain Clinical staff may employ non-medication methods such as massage, distraction, decrease stimulus, etc . as needed. Clinical staff will assess patient's pain level every shift per protocol to assess and e nsure pain management effectiveness. Medications will be given and the pain level re-assessed. PRELIMINARY PLAN OF CARE: - Physical Therapy Patient needs Physical Therapy for a daily minimum of 1.5 hours at least 5 out of 7 days, to improve: Mobility, Strengthening, Transfers, Stretching, ROM, Endurance, Ability to manage stairs, Gait, and Balance. - Speech Therapy Patient needs Speech Therapy for a daily minimum of 0.5 hours at least 5 out of 7 days, to improve: S wallowing, Cognition, Language Skills, and Compensatory Strategies. - Rehabilitation Nursing Patient requires 24x7 Rehabilitation Nursing for: Pain Issues, Identifying and preventing risk factor s, Monitoring and reporting current medical conditions, Assisting with ambulation and transfer, Fior ting with all ADL-s, Teaching patients about disease process and medications, Family teaching, Provid ing safe environment, Bowel and Bladder Issues, Skin Integrity, and Medication Management. Patient needs Administrator Pesticide and/or Case Management for: Discharge Planning, Arranging Home Equipmen t or Services, and Family Interventions. - Dietary and Nutrition Services Patient needs Dietary and Nutrition Services for: Adequate Nutrition, Nutritional Supplements, and Nu tritional Education. - Occupational Therapy Patient needs Occupational Therapy for a daily minimum of 1.5 hours at least 5 out of 7 days, to impr ove Activities of Daily Living, including: Eating, Grooming, Bathing, Dressing, Toileting, Toilet Tra nsfers, Community Reintegration, Higher functional activities, Adaptive Equipment, Splinting, Househo ld Tasks, and Other activities as determined. QI SCORES: - Self-Care A. Eating 03-Partial/moderate assistance B. Oral hygiene 03-Partial/moderate assistance C. Toileting hygiene 03-Partial/moderate assistance E. Shower/bathe self 02-Substantial/maximal assistance F. Upper body dressing 02-Substantial/maximal assistance G. Lower body dressing 02-Substantial/maximal assistance H. Putting on/taking off footwear 88-Not attempted due to medical condition or safety concerns - Mobility A. Roll left and right 03-Partial/moderate assistance B. Sit to lying 03-Partial/moderate assistance C. Lying to sitting on side of bed 03-Partial/moderate assistance D. Sit to stand 03-Partial/moderate assistance E. Chair/ozl-it-ynjzd transfer 03-Partial/moderate assistance F. Toilet transfer 03-Partial/moderate assistance G. Car transfer 88-Not attempted due to medical condition or safety concerns I. Walk 10 feet 03-Partial/moderate assistance J. Walk 50 feet with two turns 03-Partial/moderate assistance K. Walk 150 feet 03-Partial/moderate assistance L. Walking 10 feet on uneven surfaces 88-Not attempted due to medical condition or safety concerns M. 1 step (curb) 88-Not attempted due to medical condition or safety concerns N. 4 steps 88-Not attempted due to medical condition or safety concerns O. 12 steps 88-Not attempted due to medical condition or safety concerns P. Picking up object 88-Not attempted due to medical condition or safety concerns R. Wheel 50 feet with two turns 88-Not attempted due to medical condition or safety concerns S. Wheel 150 feet 88-Not attempted due to medical condition or safety concerns - Bladder and Bowel Bladder continence Bowel continence - Endurance Fair - Balance Fair - Safety Awareness Fair POTENTIAL FUNCTIONAL GOALS FOR PATIENT TO ACHIEVE BY DISCHARGE: - Safety Precaution Patient will remain free from falls or injury at time of discharge. - Bed Mobility Patient will perform bed mobility at 4-Chandler level of assistance. - Transfers Patient will complete transfers from bed to chair at 4-Chandler level of assistance. - Mobility Patient will ambulate 150 ft with 4-Chandler level of assistance with RW. PATIENT REHAB POTENTIAL Neri BOBBY is able and expected to receive 3 hours of individualized therapy daily on at least 5 of leonela ry 7 days Neri RIVASs prognosis for significant practical improvement within a reasonable period of time appears Good Expected level of measurable improvement will be of a practical value to Neri BOBBY's functional capaci ty or adaptations to impairments Has a viable Discharge Plan Medically appropriate; condition is sufficiently stable to participate in intensive rehab program DISCHARGE PLAN: - Estimated Length of Stay (days) 17. - Consensus on plan Discharge plan has been discussed with primary caregiver. Patient/Family is in agreement with the danitza n. Primary caregiver is in agreement with the plan. - Patient/Family Goals Return home independently. - Planned Living Setting Upon Discharge Home, to live with Family/Relatives. Transitional Living. CONCLUSION ON REHABILITATION NECESSITY: I have evaluated patient's pre-admission functional status and, comparing it to the patient's post-ad mission functional status now, I conclude that the pre-admission assessment was accurate. Patient's c ondition on admission supports the medical necessity of admission to [facility]. It is safe to proceed with patient's therapy program. SIGNATURE PANEL: (CDT)
--- NOTE | 2021-08-05 17:37 | P.PN ---
After noting worsening left face, arm and leg weakness on admission to the rehab unit on 08/04/21, a non-contrast head CT showed no hemorrhagic conversion of her right pontine stroke. However, her Brain MRI done today showed slight worsening of the stroke now measuring 21 x 15 mm. Her earlier brain MRI only reported 14 mm stroke dimension. She is doing aggressive speech, occupational and physical therapy.
[2021-08-05] MEDS: ATORVASTATIN 40 MG TAB PO SCH (20:21)
[2021-08-05] MEDS: LATANOPROST 0.005% 2.5ML OPTH OPTH SCH ×2 (20:40→21:03)
[2021-08-06] MEDS: LEVOTHYROXINE SOD 0.05 MG TABLET PO SCH ×2 (06:30→09:12)
[2021-08-06] MEDS: INSULIN -REGULAR HUMAN 50 UNIT/0.5 ML ML SQ SCH ×4 (07:30→21:01)
[2021-08-06] MEDS: DILTIAZEM HCL 120 MG SR CAP PO SCH (08:00)
[2021-08-06] MEDS: atenoloL 25 MG TAB PO SCH ×2 (08:00→21:01)
[2021-08-06] MEDS: PIOGLITAZONE 15 MG TAB PO SCH (09:11)
[2021-08-06] MEDS: CLOPIDOGREL 75 MG TABLET PO SCH (09:12)
[2021-08-06] MEDS: ASPIRIN EC 81 MG TAB PO SCH (09:13)
[2021-08-06] MEDS: GABAPENTIN 300 MG CAP PO SCH ×3 (09:13→21:01)
[2021-08-06] MEDS: GLIMEPIRIDE 2 MG TABLET PO SCH (09:14)
[2021-08-06] MEDS: LOSARTAN POTASSIUM 50 MG TABLET PO SCH ×2 (09:14→21:00)
[2021-08-06] MEDS: ALOGLIPTIN BENZOATE 12.5 MG TABLET PO SCH (09:15)
[2021-08-06] MEDS: ENOXAPARIN 40 MG/0.4 ML SQ SCH (09:17)
[2021-08-06] MEDS: INSULIN GLARGINE 100 UNIT/ML SQ SCH (09:20)
--- NOTE | 2021-08-06 18:03 | R.PN ---
PROGRESS NOTES ENCOUNTER DATE AND TIME: 08/06/2021 17:55 (CDT) NAME ROXY BOBBY DATE OF : 1950 DATE OF ADMISSION: 08/04/2021 15:34 (CDT) STROKECHIEF COMPLAINT: Stroke with left face, arm and leg weakness SUBJECTIVE: Pt denied any depression. Pt denied any Shortness of Breath. CBC with differential is normal. Glucose 114 to 261, prealbumin 23.2, UA is negative. 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 Therapeutic exercises done with standby assistance. Did oral motor exercises with speech therapy. VITAL SIGNS Temperature: 98.2 F SBP/DBP: 147/74 Pulse: 66 Resp: 16 MEDICATION ALLERGIES: No Known Drug Allergies (NKDA) ENVIRONMENTAL ALLERGIES: - Substance Allergies None Known - Other Allergies None Known NURSING: - Shower allowing shower - Bladder care per protocol - Skin care per protocol PRECAUTIONS: - Weight Bearing Precaution WBAT left LE - Fall Precaution SAFTY AND FALL ACTIVITIES OOB only with supervision THERAPIES: - Dietary and Nutrition Adequate Nutrition. Nutritional Education. Nutritional Supplements. Evaluate and Treat. - Occupational Therapy Cognitive Retraining. Patient needs Occupational Therapy for a daily minimum of 1.5 hours at least 5 out of 7 days, to improve Activities of Daily Living, including: Eating, Grooming, Bathing, Dressing, Toileting, Toilet Transfers, Community Reintegration, Higher functional activities, Adaptive Equipme nt, Splinting, Household Tasks, and Other activities as determined. Visual Perceptual Training. Evalu ate and Treat. Transfer Training. Safety Awareness. Patient/Family Education. ADL Training. Household Tasks. Eating. - Speech Therapy Cognitive Training. Expressive Language Skills. Memory Strategies. Patient needs Speech Therapy for a daily minimum of 1.5 hours at least 5 out of 7 days, to improve: Swallowing, Cognition, Language Ski lls, and Compensatory Strategies. Receptive Language Skills. Speech Intelligibility Training. Evaluat e and Treat. - Physical Therapy Patient needs Physical Therapy for a daily minimum of 1.5 hours at least 5 out of 7 days, to improve: Mobility, Strengthening, Transfers, Stretching, ROM, Endurance, Ability to manage stairs, Gait, and Balance. Mobility Training. Safety Awareness. Gait Training. Balance Training. Transfer Training. Sarah schulteate and Treat. Patient/Family Education. LE Strengthening. PHYSICAL EXAM - Gen Alert and awake Lying in bed No apparent distress Oriented to: person, time, and place - Skin No breakdown Mild left facial numbness and weakness. - Eyes No abnormalities - ENMT No abnormalities - Neck No abnormalities - CVS RRR - Chest No abnormalities - Abd Soft - GI Soft Deferred - No abnormalities - Ext No significant edema - MSK 3+ to 4+/5 weakness in left upper and lower extremity - Neuro 3+ to 4+/5 weakness in left upper and lower extremity - Psych No abnormalities ASSESSMENT: Pt. is a 70 yo Right-handed female.On 07/28/2021 Pt. presented to [facility] with sudden onset of left-side weakness.On 07/28/2021 she was admitted to [facility] with diagnosis STROKE.Her impairment category is Stroke 01 - Left Body (Right Brain) (01.1).Pre-morbidly, Pt. was independent/mod-I in Locomotion, Safety Awareness, Social Cognition, and Balance; and she had good Sp hincter Control, Self-Care, Communication, and Endurance.Currently, she has deficits of Locomotion, S afety Awareness, Balance, Social Cognition, Transfers Control, Self-Care, Sphincter Control, Communic ation, and Endurance.Pt. is now referred to [facility] for acute in-patient re habilitation in order to maximize patient's functional independence in activities of daily living, st rength, ROM, and mobility.- Rehab Goal Patient has realistic goal of being discharged at assistance level 7-Ind to reside at Home with Fami ly/Relatives. MDM/PLAN: - Physical Therapy Gait dysfunction - to improve, our physical therapists will perform initial evaluation of pt's statu s upon admission and devise an individualized program for Gait Training, and Wheel Chair mobility Inability to transfer - to improve, our physical therapists will perform initial evaluation of pt's status upon admission and devise an individualized program for Bed mobility Need for home safety evaluation - to improve, our physical therapists will perform initial evaluatio n of pt's status upon admission and devise an individualized program for Home Evaluation Need in caregiver upon discharge - to improve, our physical therapists will perform initial evaluati on of pt's status upon admission and devise an individualized program for Caregiver Training New precaution - to improve, our physical therapists will perform initial evaluation of pt's status upon admission and devise an individualized program for Patient precaution education Edema - to improve, our physical therapists will perform initial evaluation of pt's status upon admis steve and devise an individualized program for Elevation Training, and Lymphedema Therapy Poor balance - to improve, our physical therapists will perform initial evaluation of pt's status up on admission and devise an individualized program for Balance Training Poor endurance - to improve, our physical therapists will perform initial evaluation of pt's status upon admission and devise an individualized program for Endurance Training Weakness - to improve, our physical therapists will perform initial evaluation of pt's status upon a dmission and devise an individualized program for Aquatic Therapy, Neuromuscular Reeducation, and Str engthening Achieving independence - to improve, our physical therapists will perform initial evaluation of pt's status upon admission and devise an individualized program for Community Reintegration Activities - Occupational Therapy ADL deficits - to improve, our occupation therapists will perform initial evaluation of pt's status upon admission and devise an individualized program for Bathing, Bed mobility, Community Reintegratio n, Cooking, Dressing, Eating, Fine Motor Skills, Grooming, Homemaking, Kitchen Mobility, Laundry, Pat ient Education, Safety Awareness, Splinting - Positioning, Transfers(Toilet, Tub, Shower), and Wheel Chair Management Cognitive deficits - to improve, our occupation therapists will perform initial evaluation of pt's s tatus upon admission and devise an individualized program for Cognition - orientation Need for nonfarm animal caretaker - to improve, our occupation therapists will perform initial evaluation of pt's status upon admission and devise an individualized program for Caregiver Training Weakness - to improve, our occupation therapists will perform initial evaluation of pt's status upon admission and devise an individualized program for Aquatic Therapy, Balance, Endurance, UE ROM, and UE strengthening - Other See attached MAR (Medication Administration Record) - Diet Type Continue Regular - Diet - Liquid Texture Continue Regular - Tube Feed Continue N/A - Bladder care per protocol - Weight Bearing Precaution WBAT left LE - Fall Precaution Bed alarm SAFTY AND FALL TABS alarm Wheel chair alarm - Skin care per protocol - Diet - Solid Texture Continue Regular - Shower allowing shower for Dementia, TBI, Stroke, or others FUNCTIONAL STATUS: UPDATED AT WEEKLY TEAM CONFERENCE - Bladder Same accident frequency: 7-Ind - No accidents in the past 7 days - Bowel Same accident frequency: 7-Ind - No accidents in the past 7 days - Walking Same score based on distance walked: 0(N/A) Same score based on distance walked: 3(>=150ft) - Wheelchair Same score based on distance traveled: 0(N/A) FUNCTIONAL STATUS: - Self-Care A. Eating sup B. Grooming sup C. Bathing Chandler D. Dressing - Upper Chandler E. Dressing - Lower modA F. Toileting Chandler - Sphincter Control G. Bladder control Valdez H. Bowel control Valdez - Transfers Control I. Bed/Chair/Wheelchair Chandler J. Toilet Chandler K. Tub/Shower modA - Locomotion L. Walk/Wheelchair (B) Chandler M. Stairs Chandler - Communication N. Comprehension (B) Chandler O. Expression (B) Chandler - Social Cognition P. Social Interaction Valdez Q. Problem Solving sup R. Memory sup - Endurance Fair - Balance Fair - Safety Awareness Fair QI SCORES: - Self-Care A. Eating 03-Partial/moderate assistance B. Oral hygiene 03-Partial/moderate assistance C. Toileting hygiene 03-Partial/moderate assistance E. Shower/bathe self 02-Substantial/maximal assistance F. Upper body dressing 02-Substantial/maximal assistance G. Lower body dressing 02-Substantial/maximal assistance H. Putting on/taking off footwear 88-Not attempted due to medical condition or safety concerns - Mobility A. Roll left and right 03-Partial/moderate assistance B. Sit to lying 03-Partial/moderate assistance C. Lying to sitting on side of bed 03-Partial/moderate assistance D. Sit to stand 03-Partial/moderate assistance E. Chair/ssv-wg-[id number] transfer 03-Partial/moderate assistance F. Toilet transfer 03-Partial/moderate assistance G. Car transfer 88-Not attempted due to medical condition or safety concerns I. Walk 10 feet 03-Partial/moderate assistance J. Walk 50 feet with two turns 03-Partial/moderate assistance K. Walk 150 feet 03-Partial/moderate assistance L. Walking 10 feet on uneven surfaces 88-Not attempted due to medical condition or safety concerns M. 1 step (curb) 88-Not attempted due to medical condition or safety concerns N. 4 steps 88-Not attempted due to medical condition or safety concerns O. 12 steps 88-Not attempted due to medical condition or safety concerns P. Picking up object 88-Not attempted due to medical condition or safety concerns R. Wheel 50 feet with two turns 88-Not attempted due to medical condition or safety concerns S. Wheel 150 feet 88-Not attempted due to medical condition or safety concerns - Bladder and Bowel Bladder continence Bowel continence - Endurance Fair - Balance Fair - Safety Awareness Fair CURRENT [facility]. DEFICITS: Self-Care, Mobility, Endurance, Balance, and Safety Awareness SIGNATURE PANEL: (CDT)
[2021-08-06] MEDS: LATANOPROST 0.005% 2.5ML OPTH OPTH SCH (21:00)
[2021-08-06] MEDS: ATORVASTATIN 40 MG TAB PO SCH (21:01)
[2021-08-06] MEDS: FEXOFENADINE 180 MG TAB PO PRN (22:07)
[2021-08-07] MEDS: ACETAMINOPHEN 500 MG TAB PO PRN (00:07)
[2021-08-07] MEDS: LEVOTHYROXINE SOD 0.05 MG TABLET PO SCH (07:00)
[2021-08-07] MEDS: INSULIN -REGULAR HUMAN 50 UNIT/0.5 ML ML SQ SCH ×4 (07:30→20:42)
[2021-08-07] MEDS: ENOXAPARIN 40 MG/0.4 ML SQ SCH (07:35)
[2021-08-07] MEDS: TRAMADOL HCL 50 MG TAB PO PRN (07:36)
[2021-08-07] MEDS: GABAPENTIN 300 MG CAP PO SCH ×3 (07:38→20:42)
[2021-08-07] MEDS: INSULIN GLARGINE 100 UNIT/ML SQ SCH (08:06)
[2021-08-07] MEDS: DILTIAZEM HCL 120 MG SR CAP PO SCH (08:06)
[2021-08-07] MEDS: GLIMEPIRIDE 2 MG TABLET PO SCH (08:07)
[2021-08-07] MEDS: atenoloL 25 MG TAB PO SCH ×2 (08:07→20:45)
[2021-08-07] MEDS: CLOPIDOGREL 75 MG TABLET PO SCH (08:07)
[2021-08-07] MEDS: ASPIRIN EC 81 MG TAB PO SCH (08:07)
[2021-08-07] MEDS: ALOGLIPTIN BENZOATE 12.5 MG TABLET PO SCH (08:07)
[2021-08-07] MEDS: LOSARTAN POTASSIUM 50 MG TABLET PO SCH ×2 (08:08→20:45)
[2021-08-07] MEDS: PIOGLITAZONE 15 MG TAB PO SCH (08:08)
--- NOTE | 2021-08-07 18:09 | R.PN ---
PROGRESS NOTES ENCOUNTER DATE AND TIME: 08/07/2021 18:05 (CDT) NAME ROXY BOBBY DATE OF : 1950 DATE OF ADMISSION: 08/04/2021 15:34 (CDT) STROKECHIEF COMPLAINT: Stroke with left face, arm and leg weakness SUBJECTIVE: Pt denied any depression. Pt denied any Shortness of Breath. CBC with differential is normal. Glucose 103 to 214, prealbumin 23.2, UA is negative. 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 Ambulated 58' with minimum assistance using a rolling walker. Did oral motor exercises with speech therapy. VITAL SIGNS Temperature: 97.6 F SBP/DBP: 147/67 Pulse: 74 Resp: 16 MEDICATION ALLERGIES: No Known Drug Allergies (NKDA) ENVIRONMENTAL ALLERGIES: - Substance Allergies None Known - Other Allergies None Known NURSING: - Shower allowing shower - Bladder care per protocol - Skin care per protocol PRECAUTIONS: - Weight Bearing Precaution WBAT left LE - Fall Precaution SAFTY AND FALL ACTIVITIES OOB only with supervision THERAPIES: - Dietary and Nutrition Adequate Nutrition. Nutritional Education. Nutritional Supplements. Evaluate and Treat. - Occupational Therapy Cognitive Retraining. Patient needs Occupational Therapy for a daily minimum of 1.5 hours at least 5 out of 7 days, to improve Activities of Daily Living, including: Eating, Grooming, Bathing, Dressing, Toileting, Toilet Transfers, Community Reintegration, Higher functional activities, Adaptive Equipme nt, Splinting, Household Tasks, and Other activities as determined. Visual Perceptual Training. Evalu ate and Treat. Transfer Training. Safety Awareness. Patient/Family Education. ADL Training. Household Tasks. Eating. - Speech Therapy Cognitive Training. Expressive Language Skills. Memory Strategies. Patient needs Speech Therapy for a daily minimum of 1.5 hours at least 5 out of 7 days, to improve: Swallowing, Cognition, Language Ski lls, and Compensatory Strategies. Receptive Language Skills. Speech Intelligibility Training. Evaluat e and Treat. - Physical Therapy Patient needs Physical Therapy for a daily minimum of 1.5 hours at least 5 out of 7 days, to improve: Mobility, Strengthening, Transfers, Stretching, ROM, Endurance, Ability to manage stairs, Gait, and Balance. Mobility Training. Safety Awareness. Gait Training. Balance Training. Transfer Training. Sarah schulteate and Treat. Patient/Family Education. LE Strengthening. PHYSICAL EXAM - Gen Alert and awake Lying in bed No apparent distress Oriented to: person, time, and place - Skin No breakdown Mild left facial numbness and weakness. - Eyes No abnormalities - ENMT No abnormalities - Neck No abnormalities - CVS RRR - Chest No abnormalities - Abd Soft - GI Soft Deferred - No abnormalities - Ext No significant edema - MSK 3+ to 4+/5 weakness in left upper and lower extremity - Neuro 3+ to 4+/5 weakness in left upper and lower extremity - Psych No abnormalities ASSESSMENT: Pt. is a 70 yo Right-handed female.On 07/28/2021 Pt. presented to [facility] with sudden onset of left-side weakness.On 07/28/2021 she was admitted to [facility] with diagnosis STROKE.Her impairment category is Stroke 01 - Left Body (Right Brain) (01.1).Pre-morbidly, Pt. was independent/mod-I in Locomotion, Safety Awareness, Social Cognition, and Balance; and she had good Sp hincter Control, Self-Care, Communication, and Endurance.Currently, she has deficits of Locomotion, S afety Awareness, Balance, Social Cognition, Transfers Control, Self-Care, Sphincter Control, Communic ation, and Endurance.Pt. is now referred to [facility] for acute in-patient re habilitation in order to maximize patient's functional independence in activities of daily living, st rength, ROM, and mobility.- Rehab Goal Patient has realistic goal of being discharged at assistance level 7-Ind to reside at Home with Fami ly/Relatives. MDM/PLAN: - Physical Therapy Gait dysfunction - to improve, our physical therapists will perform initial evaluation of pt's statu s upon admission and devise an individualized program for Gait Training, and Wheel Chair mobility Inability to transfer - to improve, our physical therapists will perform initial evaluation of pt's status upon admission and devise an individualized program for Bed mobility Need for home safety evaluation - to improve, our physical therapists will perform initial evaluatio n of pt's status upon admission and devise an individualized program for Home Evaluation Need in caregiver upon discharge - to improve, our physical therapists will perform initial evaluati on of pt's status upon admission and devise an individualized program for Caregiver Training New precaution - to improve, our physical therapists will perform initial evaluation of pt's status upon admission and devise an individualized program for Patient precaution education Edema - to improve, our physical therapists will perform initial evaluation of pt's status upon admi ssion and devise an individualized program for Elevation Training, and Lymphedema Therapy Poor balance - to improve, our physical therapists will perform initial evaluation of pt's status up on admission and devise an individualized program for Balance Training Poor endurance - to improve, our physical therapists will perform initial evaluation of pt's status upon admission and devise an individualized program for Endurance Training Weakness - to improve, our physical therapists will perform initial evaluation of pt's status upon a dmission and devise an individualized program for Aquatic Therapy, Neuromuscular Reeducation, and Str engthening Achieving independence - to improve, our physical therapists will perform initial evaluation of pt's status upon admission and devise an individualized program for Community Reintegration Activities - Occupational Therapy ADL deficits - to improve, our occupation therapists will perform initial evaluation of pt's status upon admission and devise an individualized program for Bathing, Bed mobility, Community Reintegratio n, Cooking, Dressing, Eating, Fine Motor Skills, Grooming, Homemaking, Kitchen Mobility, Laundry, Pat ient Education, Safety Awareness, Splinting - Positioning, Transfers(Toilet, Tub, Shower), and Wheel Chair Management Cognitive deficits - to improve, our occupation therapists will perform initial evaluation of pt's s tatus upon admission and devise an individualized program for Cognition - orientation Need for respite care provider - to improve, our occupation therapists will perform initial evaluation of pt's status upon admission and devise an individualized program for Caregiver Training Weakness - to improve, our occupation therapists will perform initial evaluation of pt's status upon admission and devise an individualized program for Aquatic Therapy, Balance, Endurance, UE ROM, and UE strengthening - Other See attached MAR (Medication Administration Record) - Diet Type Continue Regular - Diet - Liquid Texture Continue Regular - Tube Feed Continue N/A - Bladder care per protocol - Weight Bearing Precaution WBAT left LE - Fall Precaution Bed alarm SAFTY AND FALL TABS alarm Wheel chair alarm - Skin care per protocol - Diet - Solid Texture Continue Regular - Shower allowing shower for Dementia, TBI, Stroke, or others FUNCTIONAL STATUS: UPDATED AT WEEKLY TEAM CONFERENCE - Bladder Same accident frequency: 7-Ind - No accidents in the past 7 days - Bowel Same accident frequency: 7-Ind - No accidents in the past 7 days - Walking Same score based on distance walked: 0(N/A) Same score based on distance walked: 3(>=150ft) - Wheelchair Same score based on distance traveled: 0(N/A) FUNCTIONAL STATUS: - Self-Care A. Eating sup B. Grooming sup C. Bathing Chandler D. Dressing - Upper Chandler E. Dressing - Lower modA F. Toileting Chandler - Sphincter Control G. Bladder control Valdez H. Bowel control Valdez - Transfers Control I. Bed/Chair/Wheelchair Chandler J. Toilet Chandler K. Tub/Shower modA - Locomotion L. Walk/Wheelchair (B) Chandler M. Stairs Chandler - Communication N. Comprehension (B) Chandler O. Expression (B) Chandler - Social Cognition P. Social Interaction Valdez Q. Problem Solving sup R. Memory sup - Endurance Fair - Balance Fair - Safety Awareness Fair QI SCORES: - Self-Care A. Eating 03-Partial/moderate assistance B. Oral hygiene 03-Partial/moderate assistance C. Toileting hygiene 03-Partial/moderate assistance E. Shower/bathe self 02-Substantial/maximal assistance F. Upper body dressing 02-Substantial/maximal assistance G. Lower body dressing 02-Substantial/maximal assistance H. Putting on/taking off footwear 88-Not attempted due to medical condition or safety concerns - Mobility A. Roll left and right 03-Partial/moderate assistance B. Sit to lying 03-Partial/moderate assistance C. Lying to sitting on side of bed 03-Partial/moderate assistance D. Sit to stand 03-Partial/moderate assistance E. Chair/jer-bf-hhvuv transfer 03-Partial/moderate assistance F. Toilet transfer 03-Partial/moderate assistance G. Car transfer 88-Not attempted due to medical condition or safety concerns I. Walk 10 feet 03-Partial/moderate assistance J. Walk 50 feet with two turns 03-Partial/moderate assistance K. Walk 150 feet 03-Partial/moderate assistance L. Walking 10 feet on uneven surfaces 88-Not attempted due to medical condition or safety concerns M. 1 step (curb) 88-Not attempted due to medical condition or safety concerns N. 4 steps 88-Not attempted due to medical condition or safety concerns O. 12 steps 88-Not attempted due to medical condition or safety concerns P. Picking up object 88-Not attempted due to medical condition or safety concerns R. Wheel 50 feet with two turns 88-Not attempted due to medical condition or safety concerns S. Wheel 150 feet 88-Not attempted due to medical condition or safety concerns - Bladder and Bowel Bladder continence Bowel continence - Endurance Fair - Balance Fair - Safety Awareness Fair CURRENT [facility]. DEFICITS: Self-Care, Mobility, Endurance, Balance, and Safety Awareness SIGNATURE PANEL: (CDT)
[2021-08-07] MEDS: LATANOPROST 0.005% 2.5ML OPTH OPTH SCH (20:45)
[2021-08-07] MEDS: ATORVASTATIN 40 MG TAB PO SCH (21:07)
[2021-08-08 04:51] LABS: Absolute Lymphocytes (CBC) 1.9 K/uL (0.7-4.9); Hematocrit 39.2 % (36.0-45.0); Lymphocytes % 30.9 % (15.3-44.8); MPV 11.4 fL (7.6-11.3); RBC Red Blood Cell Count 4.23 M/uL (3.86-4.86)
[2021-08-08 05:07] LABS: Albumin 2.2 g/dL (3.4-5.0); Magnesium 2.3 mg/dL (1.8-2.4); Potassium 4.2 mmol/L (3.5-5.1); Prealbumin 17.6 mg/dL (20-40)
[2021-08-08] MEDS: LEVOTHYROXINE SOD 0.05 MG TABLET PO SCH (05:07)
[2021-08-08] MEDS: INSULIN -REGULAR HUMAN 50 UNIT/0.5 ML ML SQ SCH ×4 (07:30→20:02)
[2021-08-08] MEDS: ENOXAPARIN 40 MG/0.4 ML SQ SCH (07:37)
[2021-08-08] MEDS: TRAMADOL HCL 50 MG TAB PO PRN ×2 (07:37→13:17)
[2021-08-08] MEDS: GABAPENTIN 300 MG CAP PO SCH ×3 (07:38→20:02)
[2021-08-08] MEDS: INSULIN GLARGINE 100 UNIT/ML SQ SCH ×2 (08:00→11:54)
[2021-08-08] MEDS: ASPIRIN EC 81 MG TAB PO SCH (08:20)
[2021-08-08] MEDS: PIOGLITAZONE 15 MG TAB PO SCH (08:21)
[2021-08-08] MEDS: LOSARTAN POTASSIUM 50 MG TABLET PO SCH ×2 (08:21→20:02)
[2021-08-08] MEDS: GLIMEPIRIDE 2 MG TABLET PO SCH (08:21)
[2021-08-08] MEDS: atenoloL 25 MG TAB PO SCH ×2 (08:21→20:02)
[2021-08-08] MEDS: CLOPIDOGREL 75 MG TABLET PO SCH (08:21)
[2021-08-08] MEDS: DILTIAZEM HCL 120 MG SR CAP PO SCH (08:22)
[2021-08-08] MEDS: ALOGLIPTIN BENZOATE 12.5 MG TABLET PO SCH (08:23)
[2021-08-08] MEDS: FEXOFENADINE 180 MG TAB PO PRN (09:23)
--- NOTE | 2021-08-08 09:55 | P.RH.PN ---
Estimated Length of Stay: 18 Expected Discharge Date: 08/22/21 Discharge Disposition Plan: Home Family Support: Yes [facility] Goal: Mobility, Transfers, Self Care Vital Signs: Last Vital Signs Temp 98 F 08/08/21 07:38 Pulse 68 08/08/21 08:22 Resp 16 08/08/21 07:38 BP 142/63 H 08/08/21 08:22 Pulse Ox 97 08/08/21 07:38 Laboratory: Laboratory Last Values WBC 6.3 K/uL (4.3-10.9) D 08/08/21 04:11 RBC 4.23 M/uL (3.86-4.86) 08/08/21 04:11 Hgb 13.1 g/dL (12.0-15.0) 08/08/21 04:11 Hct 39.2 % (36.0-45.0) 08/08/21 04:11 MCV 92.7 fL (80-100) 08/08/21 04:11 MCH 31.0 pg (27.0-35.0) 08/08/21 04:11 MCHC 33.4 g/dL (32.0-36.0) 08/08/21 04:11 RDW 13.6 % (12.1-15.2) 08/08/21 04:11 Plt Count 157 K/uL (152-406) 08/08/21 04:11 MPV 11.4 fL (7.6-11.3) H 08/08/21 04:11 Neutrophils % 54.4 % (41.7-73.7) 08/08/21 04:11 Lymphocytes % 30.9 % (15.3-44.8) 08/08/21 04:11 Monocytes % 11.1 % (3.3-12.3) 08/08/21 04:11 Eosinophils % 2.4 % (0-4.4) 08/08/21 04:11 Basophils % 1.2 % (0-1.3) 08/08/21 04:11 Absolute Neutrophils 3.4 K/uL (1.8-8.0) 08/08/21 04:11 Absolute Lymphocytes 1.9 K/uL (0.7-4.9) 08/08/21 04:11 Absolute Monocytes 0.7 K/uL (0.1-1.3) 08/08/21 04:11 Absolute Eosinophils 0.1 K/uL (0-0.5) 08/08/21 04:11 Absolute Basophils 0.1 K/uL (0-0.5) 08/08/21 04:11 Sodium 147 mmol/L (136-145) H 08/08/21 04:11 Potassium 4.2 mmol/L (3.5-5.1) 08/08/21 04:11 Chloride 119 mmol/L (98-107) H 08/08/21 04:11 Carbon Dioxide 23 mmol/L (21-32) 08/08/21 04:11 BUN 26 mg/dL (7-18) H 08/08/21 04:11 Creatinine 0.95 mg/dL (0.55-1.3) 08/08/21 04:11 Estimated GFR 58 mL/min (=/>90) L 08/08/21 04:11 Glucose 73 mg/dL (74-106) L 08/08/21 04:11 POC Glucose 80 mg/dL (65-120) 08/08/21 08:10 Calcium 8.5 mg/dL (8.5-10.1) 08/08/21 04:11 Magnesium 2.3 mg/dL (1.8-2.4) 08/08/21 04:11 Albumin 2.2 g/dL (3.4-5.0) L 08/08/21 04:11 Prealbumin 17.6 mg/dL (20-40) L 08/08/21 04:11 Urine Color Yellow (Yellow) 08/04/21 18:20 Urine Appearance Clear (Clear) 08/04/21 18:20 Urine pH 5.5 (5.0-7.0) 08/04/21 18:20 Ur Specific Sumner 1.015 (1.005-1.030) 08/04/21 18:20 Glucose (UA)(Auto) 1+ (Negative) H 08/04/21 18:20 Urine Ketones Negative (Negative) 08/04/21 18:20 Urine Blood Negative (Negative) 08/04/21 18:20 Urine Nitrite Negative (Negative) 08/04/21 18:20 Urine Bilirubin Negative (Negative) 08/04/21 18:20 Urine Urobilinogen 0.2 mg/dL (0.2-1.0) 08/04/21 18:20 Ur Leukocyte Esterase Negative (Negative) 08/04/21 18:20 Urine RBC None seen /HPF (NONE SEEN) 08/04/21 18:20 Urine WBC <5 /HPF (<5) 08/04/21 18:20 Ur Squamous Epith Cells <5 /HPF (NONE SEEN) 08/04/21 18:20 Urine Bacteria <20 /HPF (<20) 08/04/21 18:20 Hyaline Casts 5-10 /LPF (NONE SEEN) 08/04/21 18:20 Urine Culture Reflexed Not needed 08/04/21 18:20 Urine Total Protein Negative (Negative) 08/04/21 18:20 Weight: 195 lb 4.8 oz Wound Present: No Physician Update: Walker 20' with min assistance. The left leg dara and her left hand in 3/5 strengty. Min assistance for sit to stand transfers. Min assist with shower, dressing. Max assistance with toileting. Labs reviewed and are stable. Comment: no skin breakdown. Summary: Patient's care plan and jail goals have been reviewed and revised as necessary. Please see the Rehabilitation Signature page for all necessary signatures.
[2021-08-08] MEDS: ATORVASTATIN 40 MG TAB PO SCH (20:02)
[2021-08-08] MEDS: LATANOPROST 0.005% 2.5ML OPTH OPTH SCH (20:02)
[2021-08-09] MEDS: LEVOTHYROXINE SOD 0.05 MG TABLET PO SCH (05:21)
[2021-08-09] MEDS: ENOXAPARIN 40 MG/0.4 ML SQ SCH (07:09)
[2021-08-09] MEDS: TRAMADOL HCL 50 MG TAB PO PRN ×2 (07:10→13:35)
[2021-08-09] MEDS: GABAPENTIN 300 MG CAP PO SCH ×3 (07:10→19:55)
[2021-08-09] MEDS: INSULIN -REGULAR HUMAN 50 UNIT/0.5 ML ML SQ SCH ×4 (07:30→23:33)
[2021-08-09] MEDS: PIOGLITAZONE 15 MG TAB PO SCH (07:50)
[2021-08-09] MEDS: CLOPIDOGREL 75 MG TABLET PO SCH (07:50)
[2021-08-09] MEDS: ASPIRIN EC 81 MG TAB PO SCH (07:50)
[2021-08-09] MEDS: GLIMEPIRIDE 2 MG TABLET PO SCH (07:51)
[2021-08-09] MEDS: ALOGLIPTIN BENZOATE 12.5 MG TABLET PO SCH (07:51)
[2021-08-09] MEDS: DILTIAZEM HCL 120 MG SR CAP PO SCH (07:51)
[2021-08-09] MEDS: LOSARTAN POTASSIUM 50 MG TABLET PO SCH ×2 (07:51→19:56)
[2021-08-09] MEDS: atenoloL 25 MG TAB PO SCH ×2 (07:52→19:55)
[2021-08-09] MEDS: DULOXETINE 20 MG CAP PO SCH (07:53)
[2021-08-09] MEDS: INSULIN GLARGINE 100 UNIT/ML SQ SCH (08:20)
[2021-08-09] MEDS: ATORVASTATIN 40 MG TAB PO SCH (19:55)
[2021-08-09] MEDS: DOCUSATE NA/SENNA CONC 1 TAB PO PRN (19:56)
[2021-08-09] MEDS: LATANOPROST 0.005% 2.5ML OPTH OPTH SCH (19:56)
[2021-08-09] MEDS: MELATONIN 3 MG TABLET PO PRN (19:56)
[2021-08-10] MEDS: PIOGLITAZONE 15 MG TAB PO SCH (06:54)
[2021-08-10] MEDS: ASPIRIN EC 81 MG TAB PO SCH (06:54)
[2021-08-10] MEDS: ALOGLIPTIN BENZOATE 12.5 MG TABLET PO SCH (06:54)
[2021-08-10] MEDS: DULOXETINE 20 MG CAP PO SCH (06:55)
[2021-08-10] MEDS: CLOPIDOGREL 75 MG TABLET PO SCH (06:55)
[2021-08-10] MEDS: LEVOTHYROXINE SOD 0.05 MG TABLET PO SCH (06:55)
[2021-08-10] MEDS: GABAPENTIN 300 MG CAP PO SCH ×3 (06:56→20:46)
[2021-08-10] MEDS: INSULIN GLARGINE 100 UNIT/ML SQ SCH (06:56)
[2021-08-10] MEDS: GLIMEPIRIDE 2 MG TABLET PO SCH (06:56)
[2021-08-10] MEDS: ENOXAPARIN 40 MG/0.4 ML SQ SCH ×2 (06:56→07:02)
[2021-08-10] MEDS: atenoloL 25 MG TAB PO SCH ×2 (07:06→20:47)
[2021-08-10] MEDS: DILTIAZEM HCL 120 MG SR CAP PO SCH (07:06)
[2021-08-10] MEDS: LOSARTAN POTASSIUM 50 MG TABLET PO SCH ×2 (07:06→20:47)
[2021-08-10] MEDS: INSULIN -REGULAR HUMAN 50 UNIT/0.5 ML ML SQ SCH ×4 (07:30→20:48)
[2021-08-10] MEDS: ATORVASTATIN 40 MG TAB PO SCH (20:47)
[2021-08-10] MEDS: MELATONIN 3 MG TABLET PO PRN (20:52)
[2021-08-10] MEDS: FEXOFENADINE 180 MG TAB PO PRN (21:08)
[2021-08-10] MEDS: LATANOPROST 0.005% 2.5ML OPTH OPTH SCH (21:26)
[2021-08-11] MEDS: LEVOTHYROXINE SOD 0.05 MG TABLET PO SCH (06:30)
[2021-08-11] MEDS: INSULIN -REGULAR HUMAN 50 UNIT/0.5 ML ML SQ SCH ×4 (07:30→19:58)
[2021-08-11] MEDS: PIOGLITAZONE 15 MG TAB PO SCH (08:00)
[2021-08-11] MEDS: atenoloL 25 MG TAB PO SCH ×2 (08:00→19:58)
[2021-08-11] MEDS: GLIMEPIRIDE 2 MG TABLET PO SCH (08:00)
[2021-08-11] MEDS: INSULIN GLARGINE 100 UNIT/ML SQ SCH (08:00)
[2021-08-11] MEDS: DULOXETINE 20 MG CAP PO SCH (08:00)
[2021-08-11] MEDS: ALOGLIPTIN BENZOATE 12.5 MG TABLET PO SCH (08:00)
[2021-08-11] MEDS: LOSARTAN POTASSIUM 50 MG TABLET PO SCH ×2 (08:00→19:58)
[2021-08-11] MEDS: ENOXAPARIN 40 MG/0.4 ML SQ SCH (08:00)
[2021-08-11] MEDS: DILTIAZEM HCL 120 MG SR CAP PO SCH (08:00)
[2021-08-11] MEDS: ASPIRIN EC 81 MG TAB PO SCH (08:00)
[2021-08-11] MEDS: CLOPIDOGREL 75 MG TABLET PO SCH (08:00)
[2021-08-11] MEDS: GABAPENTIN 300 MG CAP PO SCH ×3 (08:44→19:57)
[2021-08-11] MEDS: FEXOFENADINE 180 MG TAB PO PRN (18:57)
[2021-08-11] MEDS: LATANOPROST 0.005% 2.5ML OPTH OPTH SCH (19:57)
[2021-08-11] MEDS: ATORVASTATIN 40 MG TAB PO SCH (19:57)
[2021-08-12] MEDS: ACETAMINOPHEN 500 MG TAB PO PRN (04:02)
[2021-08-12] MEDS: LEVOTHYROXINE SOD 0.05 MG TABLET PO SCH (05:07)
[2021-08-12] MEDS: ENOXAPARIN 40 MG/0.4 ML SQ SCH (07:13)
[2021-08-12] MEDS: TRAMADOL HCL 50 MG TAB PO PRN ×3 (07:16→19:43)
[2021-08-12] MEDS: GABAPENTIN 300 MG CAP PO SCH ×3 (07:16→19:44)
[2021-08-12] MEDS: INSULIN -REGULAR HUMAN 50 UNIT/0.5 ML ML SQ SCH ×4 (07:30→19:42)
[2021-08-12] MEDS: ASPIRIN EC 81 MG TAB PO SCH (07:50)
[2021-08-12] MEDS: PIOGLITAZONE 15 MG TAB PO SCH (07:50)
[2021-08-12] MEDS: DILTIAZEM HCL 120 MG SR CAP PO SCH (07:51)
[2021-08-12] MEDS: GLIMEPIRIDE 2 MG TABLET PO SCH (07:51)
[2021-08-12] MEDS: DULOXETINE 20 MG CAP PO SCH (07:51)
[2021-08-12] MEDS: LOSARTAN POTASSIUM 50 MG TABLET PO SCH ×2 (07:51→19:44)
[2021-08-12] MEDS: CLOPIDOGREL 75 MG TABLET PO SCH (07:51)
[2021-08-12] MEDS: atenoloL 25 MG TAB PO SCH ×2 (07:52→19:43)
[2021-08-12] MEDS: ALOGLIPTIN BENZOATE 12.5 MG TABLET PO SCH (07:52)
[2021-08-12] MEDS: INSULIN GLARGINE 100 UNIT/ML SQ SCH ×2 (08:00→12:07)
[2021-08-12] MEDS: LIDOCAINE 4% PATCH TOP SCH (09:43)
[2021-08-12 11:35] LABS: Urine Appearance TURBID (Clear); Urine Bilirubin NEGATIVE (Negative); Urine Blood 3+ (Negative); Urine Color YELLOW (Yellow); Urine Glucose NEGATIVE (Negative); Urine Protein 1+ (Negative); Urine Urobilinogen 0.2 mg/dL (0.2-1.0); Urine pH 5.5 (5.0-7.0)
[2021-08-12 11:58] LABS: Urine Bacteria >50 /HPF (<20)
--- NOTE | 2021-08-12 17:36 | R.PN ---
PROGRESS NOTES ENCOUNTER DATE AND TIME: 08/12/2021 17:31 (CDT) NAME ROXY BOBBY DATE OF : 1950 DATE OF ADMISSION: 08/04/2021 15:34 (CDT) STROKECHIEF COMPLAINT: Stroke with left face, arm and leg weakness SUBJECTIVE: Pt denied any depression. Pt denied any Shortness of Breath. CBC with differential is normal. Glucose 90 to 121, prealbumin 17.6, UA is negative. Ambulated 248' with minimum assistance using a rolling walker. Did oral motor exercises with speech therapy. After having increased urinary frequency, UA shows nitrite +ve, estrase +ve, >50 bacteria, > 50 WBC. VITAL SIGNS Temperature: 98.9 F SBP/DBP: 161/66 Pulse: 73 Resp: 16 MEDICATION ALLERGIES: No Known Drug Allergies (NKDA) ENVIRONMENTAL ALLERGIES: - Substance Allergies None Known - Other Allergies None Known NURSING: - Shower allowing shower - Bladder care per protocol - Skin care per protocol PRECAUTIONS: - Weight Bearing Precaution WBAT left LE - Fall Precaution SAFTY AND FALL ACTIVITIES OOB only with supervision THERAPIES: - Dietary and Nutrition Adequate Nutrition. Nutritional Education. Nutritional Supplements. Evaluate and Treat. - Occupational Therapy Cognitive Retraining. Patient needs Occupational Therapy for a daily minimum of 1.5 hours at least 5 out of 7 days, to improve Activities of Daily Living, including: Eating, Grooming, Bathing, Dressing, Toileting, Toilet Transfers, Community Reintegration, Higher functional activities, Adaptive Equipme nt, Splinting, Household Tasks, and Other activities as determined. Visual Perceptual Training. Evalu ate and Treat. Transfer Training. Safety Awareness. Patient/Family Education. ADL Training. Household Tasks. Eating. - Speech Therapy Cognitive Training. Expressive Language Skills. Memory Strategies. Patient needs Speech Therapy for a daily minimum of 1.5 hours at least 5 out of 7 days, to improve: Swallowing, Cognition, Language Ski lls, and Compensatory Strategies. Receptive Language Skills. Speech Intelligibility Training. Evaluat e and Treat. - Physical Therapy Patient needs Physical Therapy for a daily minimum of 1.5 hours at least 5 out of 7 days, to improve: Mobility, Strengthening, Transfers, Stretching, ROM, Endurance, Ability to manage stairs, Gait, and Balance. Mobility Training. Safety Awareness. Gait Training. Balance Training. Transfer Training. Sarah silveira and Treat. Patient/Family Education. LE Strengthening. PHYSICAL EXAM - Gen Alert and awake Lying in bed No apparent distress Oriented to: person, time, and place - Skin No breakdown Mild left facial numbness and weakness. - Eyes No abnormalities - ENMT No abnormalities - Neck No abnormalities - CVS RRR - Chest No abnormalities - Abd Soft - GI Soft Deferred - No abnormalities - Ext No significant edema - MSK 3+ to 4+/5 weakness in left upper and lower extremity - Neuro 3+ to 4+/5 weakness in left upper and lower extremity - Psych No abnormalities ASSESSMENT: Pt. is a 70 yo Right-handed female.On 07/28/2021 Pt. presented to [facility] with sudden onset of left-side weakness.On 07/28/2021 she was admitted to [facility] with diagnosis STROKE.Her impairment category is Stroke 01 - Left Body (Right Brain) (01.1).Pre-morbidly, Pt. was independent/mod-I in Locomotion, Safety Awareness, Social Cognition, and Balance; and she had good Sp hincter Control, Self-Care, Communication, and Endurance.Currently, she has deficits of Locomotion, S afety Awareness, Balance, Social Cognition, Transfers Control, Self-Care, Sphincter Control, Communic ation, and Endurance.Pt. is now referred to [facility] for acute in-patient re habilitation in order to maximize patient's functional independence in activities of daily living, st rength, ROM, and mobility.- Rehab Goal Patient has realistic goal of being discharged at assistance level 7-Ind to reside at Home with Fami ly/Relatives. MDM/PLAN: - Physical Therapy Gait dysfunction - to improve, our physical therapists will perform initial evaluation of pt's statu s upon admission and devise an individualized program for Gait Training, and Wheel Chair mobility Inability to transfer - to improve, our physical therapists will perform initial evaluation of pt's status upon admission and devise an individualized program for Bed mobility Need for home safety evaluation - to improve, our physical therapists will perform initial evaluatio n of pt's status upon admission and devise an individualized program for Home Evaluation Need in caregiver upon discharge - to improve, our physical therapists will perform initial evaluati on of pt's status upon admission and devise an individualized program for Caregiver Training New precaution - to improve, our physical therapists will perform initial evaluation of pt's status upon admission and devise an individualized program for Patient precaution education Edema - to improve, our physical therapists will perform initial evaluation of pt's status upon admi ssion and devise an individualized program for Elevation Training, and Lymphedema Therapy Poor balance - to improve, our physical therapists will perform initial evaluation of pt's status up on admission and devise an individualized program for Balance Training Poor endurance - to improve, our physical therapists will perform initial evaluation of pt's status upon admission and devise an individualized program for Endurance Training Weakness - to improve, our physical therapists will perform initial evaluation of pt's status upon a dmission and devise an individualized program for Aquatic Therapy, Neuromuscular Reeducation, and Str engthening Achieving independence - to improve, our physical therapists will perform initial evaluation of pt's status upon admission and devise an individualized program for Community Reintegration Activities - Occupational Therapy ADL deficits - to improve, our occupation therapists will perform initial evaluation of pt's status upon admission and devise an individualized program for Bathing, Bed mobility, Community Reintegratio n, Cooking, Dressing, Eating, Fine Motor Skills, Grooming, Homemaking, Kitchen Mobility, Laundry, Pat ient Education, Safety Awareness, Splinting - Positioning, Transfers(Toilet, Tub, Shower), and Wheel Chair Management Cognitive deficits - to improve, our occupation therapists will perform initial evaluation of pt's s tatus upon admission and devise an individualized program for Cognition - orientation Need for specialist wound care - to improve, our occupation therapists will perform initial evaluation of pt's status upon admission and devise an individualized program for Caregiver Training Weakness - to improve, our occupation therapists will perform initial evaluation of pt's status upon admission and devise an individualized program for Aquatic Therapy, Balance, Endurance, UE ROM, and UE strengthening - Other See attached MAR (Medication Administration Record) - Diet Type Continue Regular - Diet - Liquid Texture Continue Regular - Tube Feed Continue N/A - Bladder care per protocol - Weight Bearing Precaution WBAT left LE - Fall Precaution Bed alarm SAFTY AND FALL TABS alarm Wheel chair alarm - Skin care per protocol - Diet - Solid Texture Continue Regular - Shower allowing shower for Dementia, TBI, Stroke, or others FUNCTIONAL STATUS: UPDATED AT WEEKLY TEAM CONFERENCE - Bladder Same accident frequency: 7-Ind - No accidents in the past 7 days - Bowel Same accident frequency: 7-Ind - No accidents in the past 7 days - Walking Same score based on distance walked: 0(N/A) Same score based on distance walked: 3(>=150ft) - Wheelchair Same score based on distance traveled: 0(N/A) FUNCTIONAL STATUS: - Self-Care A. Eating sup B. Grooming sup C. Bathing Chandler D. Dressing - Upper Chandler E. Dressing - Lower modA F. Toileting Chandler - Sphincter Control G. Bladder control Valdez H. Bowel control Valdez - Transfers Control I. Bed/Chair/Wheelchair Chandler J. Toilet Chandler K. Tub/Shower modA - Locomotion L. Walk/Wheelchair (B) Chandler M. Stairs Chandler - Communication N. Comprehension (B) Chandler O. Expression (B) Chandler - Social Cognition P. Social Interaction Valdez Q. Problem Solving sup R. Memory sup - Endurance Fair - Balance Fair - Safety Awareness Fair QI SCORES: - Self-Care A. Eating 03-Partial/moderate assistance B. Oral hygiene 03-Partial/moderate assistance C. Toileting hygiene 03-Partial/moderate assistance E. Shower/bathe self 02-Substantial/maximal assistance F. Upper body dressing 02-Substantial/maximal assistance G. Lower body dressing 02-Substantial/maximal assistance H. Putting on/taking off footwear 88-Not attempted due to medical condition or safety concerns - Mobility A. Roll left and right 03-Partial/moderate assistance B. Sit to lying 03-Partial/moderate assistance C. Lying to sitting on side of bed 03-Partial/moderate assistance D. Sit to stand 03-Partial/moderate assistance E. Chair/qwi-hy-ngmms transfer 03-Partial/moderate assistance F. Toilet transfer 03-Partial/moderate assistance G. Car transfer 88-Not attempted due to medical condition or safety concerns I. Walk 10 feet 03-Partial/moderate assistance J. Walk 50 feet with two turns 03-Partial/moderate assistance K. Walk 150 feet 03-Partial/moderate assistance L. Walking 10 feet on uneven surfaces 88-Not attempted due to medical condition or safety concerns M. 1 step (curb) 88-Not attempted due to medical condition or safety concerns N. 4 steps 88-Not attempted due to medical condition or safety concerns O. 12 steps 88-Not attempted due to medical condition or safety concerns P. Picking up object 88-Not attempted due to medical condition or safety concerns R. Wheel 50 feet with two turns 88-Not attempted due to medical condition or safety concerns S. Wheel 150 feet 88-Not attempted due to medical condition or safety concerns - Bladder and Bowel Bladder continence Bowel continence - Endurance Fair - Balance Fair - Safety Awareness Fair [facility] DEFICITS: Self-Care, Mobility, Endurance, Balance, and Safety Awareness SIGNATURE PANEL: (CDT)
[2021-08-12] MEDS: CRANBERRY FRUIT EXTRACT 400 MG CAP PO SCH (19:43)
[2021-08-12] MEDS: ATORVASTATIN 40 MG TAB PO SCH (19:43)
[2021-08-12] MEDS: APIXABAN 2.5 MG TABLET PO SCH (19:44)
[2021-08-12] MEDS: FEXOFENADINE 180 MG TAB PO PRN (19:44)
[2021-08-12] MEDS: LATANOPROST 0.005% 2.5ML OPTH OPTH SCH (19:45)
[2021-08-13] MEDS: LEVOTHYROXINE SOD 0.05 MG TABLET PO SCH (05:47)
[2021-08-13] MEDS: TRAMADOL HCL 50 MG TAB PO PRN ×2 (07:00→19:59)
[2021-08-13] MEDS: GABAPENTIN 300 MG CAP PO SCH ×3 (07:00→19:51)
[2021-08-13] MEDS: LIDOCAINE 4% PATCH TOP SCH (07:01)
[2021-08-13] MEDS: INSULIN -REGULAR HUMAN 50 UNIT/0.5 ML ML SQ SCH ×4 (07:30→19:52)
[2021-08-13] MEDS: APIXABAN 2.5 MG TABLET PO SCH ×2 (07:37→19:51)
[2021-08-13] MEDS: GLIMEPIRIDE 2 MG TABLET PO SCH (07:37)
[2021-08-13] MEDS: DILTIAZEM HCL 120 MG SR CAP PO SCH (07:37)
[2021-08-13] MEDS: ALOGLIPTIN BENZOATE 12.5 MG TABLET PO SCH (07:37)
[2021-08-13] MEDS: CLOPIDOGREL 75 MG TABLET PO SCH (07:38)
[2021-08-13] MEDS: ASPIRIN EC 81 MG TAB PO SCH (07:38)
[2021-08-13] MEDS: LOSARTAN POTASSIUM 50 MG TABLET PO SCH ×2 (07:38→19:50)
[2021-08-13] MEDS: CRANBERRY FRUIT EXTRACT 400 MG CAP PO SCH ×2 (07:38→19:51)
[2021-08-13] MEDS: DULOXETINE 20 MG CAP PO SCH (07:38)
[2021-08-13] MEDS: atenoloL 25 MG TAB PO SCH ×2 (07:38→19:51)
[2021-08-13] MEDS: PIOGLITAZONE 15 MG TAB PO SCH (07:38)
[2021-08-13] MEDS: INSULIN GLARGINE 100 UNIT/ML SQ SCH ×2 (08:00→12:06)
[2021-08-13] MEDS: ATORVASTATIN 40 MG TAB PO SCH (19:51)
[2021-08-13] MEDS: LATANOPROST 0.005% 2.5ML OPTH OPTH SCH (19:53)
[2021-08-13] MEDS: DOCUSATE NA/SENNA CONC 1 TAB PO PRN (19:53)
[2021-08-14] MEDS: LEVOTHYROXINE SOD 0.05 MG TABLET PO SCH (06:26)
[2021-08-14] MEDS: INSULIN -REGULAR HUMAN 50 UNIT/0.5 ML ML SQ SCH ×4 (06:30→19:46)
[2021-08-14] MEDS: LIDOCAINE 4% PATCH TOP SCH ×2 (08:00→09:14)
[2021-08-14] MEDS: INSULIN GLARGINE 100 UNIT/ML SQ SCH ×2 (08:00→12:20)
[2021-08-14] MEDS: APIXABAN 2.5 MG TABLET PO SCH ×2 (09:15→19:46)
[2021-08-14] MEDS: DULOXETINE 20 MG CAP PO SCH (09:15)
[2021-08-14] MEDS: ASPIRIN EC 81 MG TAB PO SCH (09:16)
[2021-08-14] MEDS: LOSARTAN POTASSIUM 50 MG TABLET PO SCH ×2 (09:16→19:46)
[2021-08-14] MEDS: CRANBERRY FRUIT EXTRACT 400 MG CAP PO SCH ×2 (09:16→19:46)
[2021-08-14] MEDS: atenoloL 25 MG TAB PO SCH ×2 (09:17→19:46)
[2021-08-14] MEDS: CLOPIDOGREL 75 MG TABLET PO SCH (09:17)
[2021-08-14] MEDS: PIOGLITAZONE 15 MG TAB PO SCH (09:19)
[2021-08-14] MEDS: GLIMEPIRIDE 2 MG TABLET PO SCH (09:19)
[2021-08-14] MEDS: GABAPENTIN 300 MG CAP PO SCH ×3 (10:20→19:46)
[2021-08-14] MEDS: DILTIAZEM HCL 120 MG SR CAP PO SCH (10:24)
[2021-08-14] MEDS: ALOGLIPTIN BENZOATE 12.5 MG TABLET PO SCH (10:25)
[2021-08-14] MEDS: TRAMADOL HCL 50 MG TAB PO PRN (10:29)
--- NOTE | 2021-08-14 17:11 | R.PN ---
PROGRESS NOTES ENCOUNTER DATE AND TIME: 08/14/2021 14:23 (CDT) NAME ROXY BOBBY DATE OF : 1950 DATE OF ADMISSION: 08/04/2021 15:34 (CDT) STROKECHIEF COMPLAINT: Stroke with left face, arm and leg weakness SUBJECTIVE: Pt denied any depression. Pt denied any Shortness of Breath. CBC with differential is normal. Glucose 95 to 198, prealbumin 17.6, UA is negative. Ambulated 100' with standby assistance using a rolling walker. Self-propelled wheelchair 130' with st andby assistance. Did oral motor exercises with speech therapy. After having increased urinary frequency, UA shows nitrite +ve, estrase +ve, >50 bacteria, > 50 WBC. Cultures showed 4+ gram negative rods and mixed cele. VITAL SIGNS Temperature: 98.9 F SBP/DBP: 145/67 Pulse: 64 Resp: 15 MEDICATION ALLERGIES: No Known Drug Allergies (NKDA) ENVIRONMENTAL ALLERGIES: - Substance Allergies None Known - Other Allergies None Known NURSING: - Shower allowing shower - Bladder care per protocol - Skin care per protocol PRECAUTIONS: - Weight Bearing Precaution WBAT left LE - Fall Precaution SAFTY AND FALL ACTIVITIES OOB only with supervision THERAPIES: - Dietary and Nutrition Adequate Nutrition. Nutritional Education. Nutritional Supplements. Evaluate and Treat. - Occupational Therapy Cognitive Retraining. Patient needs Occupational Therapy for a daily minimum of 1.5 hours at least 5 out of 7 days, to improve Activities of Daily Living, including: Eating, Grooming, Bathing, Dressing, Toileting, Toilet Transfers, Community Reintegration, Higher functional activities, Adaptive Equipme nt, Splinting, Household Tasks, and Other activities as determined. Visual Perceptual Training. Evalu ate and Treat. Transfer Training. Safety Awareness. Patient/Family Education. ADL Training. Household Tasks. Eating. - Speech Therapy Cognitive Training. Expressive Language Skills. Memory Strategies. Patient needs Speech Therapy for a daily minimum of 1.5 hours at least 5 out of 7 days, to improve: Swallowing, Cognition, Language Ski lls, and Compensatory Strategies. Receptive Language Skills. Speech Intelligibility Training. Evaluat e and Treat. - Physical Therapy Patient needs Physical Therapy for a daily minimum of 1.5 hours at least 5 out of 7 days, to improve: Mobility, Strengthening, Transfers, Stretching, ROM, Endurance, Ability to manage stairs, Gait, and Balance. Mobility Training. Safety Awareness. Gait Training. Balance Training. Transfer Training. Sarah luate and Treat. Patient/Family Education. LE Strengthening. PHYSICAL EXAM - Gen Alert and awake Lying in bed No apparent distress Oriented to: person, time, and place - Skin No breakdown Mild left facial numbness and weakness. - Eyes No abnormalities - ENMT No abnormalities - Neck No abnormalities - CVS RRR - Chest No abnormalities - Abd Soft - GI Soft Deferred - No abnormalities - Ext No significant edema - MSK 3+ to 4+/5 weakness in left upper and lower extremity - Neuro 3+ to 4+/5 weakness in left upper and lower extremity - Psych No abnormalities ASSESSMENT: Pt. is a 70 yo Right-handed female.On 07/28/2021 Pt. presented to [facility] with sudden onset of left-side weakness.On 07/28/2021 she was admitted to [facility] with diagnosis STROKE.Her impairment category is Stroke 01 - Left Body (Right Brain) (01.1).Pre-morbidly, Pt. was independent/mod-I in Locomotion, Safety Awareness, Social Cognition, and Balance; and she had good Sp hincter Control, Self-Care, Communication, and Endurance.Currently, she has deficits of Locomotion, S afety Awareness, Balance, Social Cognition, Transfers Control, Self-Care, Sphincter Control, Communic ation, and Endurance.Pt. is now referred to [facility] for acute in-patient re habilitation in order to maximize patient's functional independence in activities of daily living, [facility], ROM, and mobility.- Rehab Goal Patient has realistic goal of being discharged at assistance level 7-Ind to reside at Home with Fami ly/Relatives. MDM/PLAN: - Physical Therapy Gait dysfunction - to improve, our physical therapists will perform initial evaluation of pt's statu s upon admission and devise an individualized program for Gait Training, and Wheel Chair mobility Inability to transfer - to improve, our physical therapists will perform initial evaluation of pt's status upon admission and devise an individualized program for Bed mobility Need for home safety evaluation - to improve, our physical therapists will perform initial evaluatio n of pt's status upon admission and devise an individualized program for Home Evaluation Need in caregiver upon discharge - to improve, our physical therapists will perform initial evaluati on of pt's status upon admission and devise an individualized program for Caregiver Training New precaution - to improve, our physical therapists will perform initial evaluation of pt's status upon admission and devise an individualized program for Patient precaution education Edema - to improve, our physical therapists will perform initial evaluation of pt's status upon admi ssion and devise an individualized program for Elevation Training, and Lymphedema Therapy Poor balance - to improve, our physical therapists will perform initial evaluation of pt's status up on admission and devise an individualized program for Balance Training Poor endurance - to improve, our physical therapists will perform initial evaluation of pt's status upon admission and devise an individualized program for Endurance Training Weakness - to improve, our physical therapists will perform initial evaluation of pt's status upon a dmission and devise an individualized program for Aquatic Therapy, Neuromuscular Reeducation, and Str engthening Achieving independence - to improve, our physical therapists will perform initial evaluation of pt's status upon admission and devise an individualized program for Community Reintegration Activities - Occupational Therapy ADL deficits - to improve, our occupation therapists will perform initial evaluation of pt's status upon admission and devise an individualized program for Bathing, Bed mobility, Community Reintegratio n, Cooking, Dressing, Eating, Fine Motor Skills, Grooming, Homemaking, Kitchen Mobility, Laundry, Pat ient Education, Safety Awareness, Splinting - Positioning, Transfers(Toilet, Tub, Shower), and Wheel Chair Management Cognitive deficits - to improve, our occupation therapists will perform initial evaluation of pt's s tatus upon admission and devise an individualized program for Cognition - orientation Need for gericare aide - to improve, our occupation therapists will perform initial evaluation of pt's status upon admission and devise an individualized program for Caregiver Training Weakness - to improve, our occupation therapists will perform initial evaluation of pt's status upon admission and devise an individualized program for Aquatic Therapy, Balance, Endurance, UE ROM, and UE strengthening - Other See attached MAR (Medication Administration Record) - Diet Type Continue Regular - Diet - Liquid Texture Continue Regular - Tube Feed Continue N/A - Bladder care per protocol - Weight Bearing Precaution WBAT left LE - Fall Precaution Bed alarm SAFTY AND FALL TABS alarm Wheel chair alarm - Skin care per protocol - Diet - Solid Texture Continue Regular - Shower allowing shower for Dementia, TBI, Stroke, or others FUNCTIONAL STATUS: UPDATED AT WEEKLY TEAM CONFERENCE - Bladder Same accident frequency: 7-Ind - No accidents in the past 7 days - Bowel Same accident frequency: 7-Ind - No accidents in the past 7 days - Walking Same score based on distance walked: 0(N/A) Same score based on distance walked: 3(>=150ft) - Wheelchair Same score based on distance traveled: 0(N/A) FUNCTIONAL STATUS: - Self-Care A. Eating sup B. Grooming sup C. Bathing Chandler D. Dressing - Upper Chandler E. Dressing - Lower modA F. Toileting Chandler - Sphincter Control G. Bladder control Valdez H. Bowel control Valdez - Transfers Control I. Bed/Chair/Wheelchair Chandler J. Toilet Chandler K. Tub/Shower modA - Locomotion L. Walk/Wheelchair (B) Chandler M. Stairs Chandler - Communication N. Comprehension (B) Chandler O. Expression (B) Chandler - Social Cognition P. Social Interaction Valdez Q. Problem Solving sup R. Memory sup - Endurance Fair - Balance Fair - Safety Awareness Fair QI SCORES: - Self-Care A. Eating 03-Partial/moderate assistance B. Oral hygiene 03-Partial/moderate assistance C. Toileting hygiene 03-Partial/moderate assistance E. Shower/bathe self 02-Substantial/maximal assistance F. Upper body dressing 02-Substantial/maximal assistance G. Lower body dressing 02-Substantial/maximal assistance H. Putting on/taking off footwear 88-Not attempted due to medical condition or safety concerns - Mobility A. Roll left and right 03-Partial/moderate assistance B. Sit to lying 03-Partial/moderate assistance C. Lying to sitting on side of bed 03-Partial/moderate assistance D. Sit to stand 03-Partial/moderate assistance E. Chair/jdb-es-nrcaf transfer 03-Partial/moderate assistance F. Toilet transfer 03-Partial/moderate assistance G. Car transfer 88-Not attempted due to medical condition or safety concerns I. Walk 10 feet 03-Partial/moderate assistance J. Walk 50 feet with two turns 03-Partial/moderate assistance K. Walk 150 feet 03-Partial/moderate assistance L. Walking 10 feet on uneven surfaces 88-Not attempted due to medical condition or safety concerns M. 1 step (curb) 88-Not attempted due to medical condition or safety concerns N. 4 steps 88-Not attempted due to medical condition or safety concerns O. 12 steps 88-Not attempted due to medical condition or safety concerns P. Picking up object 88-Not attempted due to medical condition or safety concerns R. Wheel 50 feet with two turns 88-Not attempted due to medical condition or safety concerns S. Wheel 150 feet 88-Not attempted due to medical condition or safety concerns - Bladder and Bowel Bladder continence Bowel continence - Endurance Fair - Balance Fair - Safety Awareness Fair CURRENT [facility]. DEFICITS: Self-Care, Mobility, Endurance, Balance, and Safety Awareness SIGNATURE PANEL: (CDT)
[2021-08-14] MEDS: ATORVASTATIN 40 MG TAB PO SCH (19:45)
[2021-08-14] MEDS: LATANOPROST 0.005% 2.5ML OPTH OPTH SCH (19:45)
[2021-08-15 04:44] LABS: Absolute Lymphocytes (CBC) 1.7 K/uL (0.7-4.9); Hematocrit 34.5 % (36.0-45.0); Lymphocytes % 20.5 % (15.3-44.8); MPV 11.9 fL (7.6-11.3); RBC Red Blood Cell Count 3.79 M/uL (3.86-4.86)
[2021-08-15 04:59] LABS: Magnesium 2.2 mg/dL (1.8-2.4); Potassium 4.2 mmol/L (3.5-5.1); Prealbumin 14.8 mg/dL (20-40)
[2021-08-15] MEDS: LEVOTHYROXINE SOD 0.05 MG TABLET PO SCH (05:23)
[2021-08-15] MEDS: INSULIN -REGULAR HUMAN 50 UNIT/0.5 ML ML SQ SCH ×4 (07:30→19:44)
[2021-08-15] MEDS: LIDOCAINE 4% PATCH TOP SCH ×2 (08:00→11:37)
[2021-08-15] MEDS: PIOGLITAZONE 15 MG TAB PO SCH (08:16)
[2021-08-15] MEDS: ASPIRIN EC 81 MG TAB PO SCH (08:17)
[2021-08-15] MEDS: CLOPIDOGREL 75 MG TABLET PO SCH (08:17)
[2021-08-15] MEDS: TRAMADOL HCL 50 MG TAB PO PRN ×2 (08:17→13:41)
[2021-08-15] MEDS: CRANBERRY FRUIT EXTRACT 400 MG CAP PO SCH ×2 (08:17→19:43)
[2021-08-15] MEDS: GLIMEPIRIDE 2 MG TABLET PO SCH (08:18)
[2021-08-15] MEDS: LOSARTAN POTASSIUM 50 MG TABLET PO SCH ×2 (08:18→19:44)
[2021-08-15] MEDS: atenoloL 25 MG TAB PO SCH ×2 (08:18→19:44)
[2021-08-15] MEDS: GABAPENTIN 300 MG CAP PO SCH ×3 (08:18→19:44)
[2021-08-15] MEDS: DULOXETINE 20 MG CAP PO SCH (08:19)
[2021-08-15] MEDS: APIXABAN 2.5 MG TABLET PO SCH ×2 (08:19→19:43)
[2021-08-15] MEDS: INSULIN GLARGINE 100 UNIT/ML SQ SCH (08:58)
[2021-08-15] MEDS: ALOGLIPTIN BENZOATE 12.5 MG TABLET PO SCH (09:52)
[2021-08-15] MEDS: DILTIAZEM HCL 120 MG SR CAP PO SCH (09:52)
--- NOTE | 2021-08-15 19:03 | R.PN ---
PROGRESS NOTES ENCOUNTER DATE AND TIME: 08/15/2021 18:56 (CDT) NAME ROXY BOBBY DATE OF : 1950 DATE OF ADMISSION: 08/04/2021 15:34 (CDT) STROKECHIEF COMPLAINT: Stroke with left face, arm and leg weakness SUBJECTIVE: Pt denied any depression. Pt denied any Shortness of Breath. CBC with differential is normal except Hgb is mildly low at 11.8. Glucose 114 to 201, prealbumin 14.8 , UA is negative. Ambulated 250' with supervision using a rolling walker. Self-propelled wheelchair 30' with standby as sistance. Did oral motor exercises with speech therapy. After having increased urinary frequency, UA shows nitrite +ve, estrase +ve, >50 bacteria, > 50 WBC. Cultures showed 4+ gram negative rods and mixed cele. VITAL SIGNS Temperature: 98.2 F SBP/DBP: 157/65 Pulse: 70 Resp: 16 MEDICATION ALLERGIES: No Known Drug Allergies (NKDA) ENVIRONMENTAL ALLERGIES: - Substance Allergies None Known - Other Allergies None Known NURSING: - Shower allowing shower - Bladder care per protocol - Skin care per protocol PRECAUTIONS: - Weight Bearing Precaution WBAT left LE - Fall Precaution SAFTY AND FALL ACTIVITIES OOB only with supervision THERAPIES: - Dietary and Nutrition Adequate Nutrition. Nutritional Education. Nutritional Supplements. Evaluate and Treat. - Occupational Therapy Cognitive Retraining. Patient needs Occupational Therapy for a daily minimum of 1.5 hours at least 5 out of 7 days, to improve Activities of Daily Living, including: Eating, Grooming, Bathing, Dressing, Toileting, Toilet Transfers, Community Reintegration, Higher functional activities, Adaptive Equipme nt, Splinting, Household Tasks, and Other activities as determined. Visual Perceptual Training. Evalu ate and Treat. Transfer Training. Safety Awareness. Patient/Family Education. ADL Training. Household Tasks. Eating. - Speech Therapy Cognitive Training. Expressive Language Skills. Memory Strategies. Patient needs Speech Therapy for a daily minimum of 1.5 hours at least 5 out of 7 days, to improve: Swallowing, Cognition, Language Ski lls, and Compensatory Strategies. Receptive Language Skills. Speech Intelligibility Training. Evaluat e and Treat. - Physical Therapy Patient needs Physical Therapy for a daily minimum of 1.5 hours at least 5 out of 7 days, to improve: Mobility, Strengthening, Transfers, Stretching, ROM, Endurance, Ability to manage stairs, Gait, and Balance. Mobility Training. Safety Awareness. Gait Training. Balance Training. Transfer Training. Sarah luate and Treat. Patient/Family Education. LE Strengthening. PHYSICAL EXAM - Gen Alert and awake Lying in bed No apparent distress Oriented to: person, time, and place - Skin No breakdown Mild left facial numbness and weakness. - Eyes No abnormalities - ENMT No abnormalities - Neck No abnormalities - CVS RRR - Chest No abnormalities - Abd Soft - GI Soft Deferred - No abnormalities - Ext No significant edema - MSK 3+ to 4+/5 weakness in left upper and lower extremity - Neuro 3+ to 4+/5 weakness in left upper and lower extremity - Psych No abnormalities ASSESSMENT: Pt. is a 70 yo Right-handed female.On 07/28/2021 Pt. presented to [facility] with sudden onset of left-side weakness.On 07/28/2021 she was admitted to [facility] with diagnosis STROKE.Her impairment category is Stroke 01 - Left Body (Right Brain) (01.1).Pre-morbidly, Pt. was independent/mod-I in Locomotion, Safety Awareness, Social Cognition, and Balance; and she had good Sp hincter Control, Self-Care, Communication, and Endurance.Currently, she has deficits of Locomotion, S afety Awareness, Balance, Social Cognition, Transfers Control, Self-Care, Sphincter Control, Communic ation, and Endurance.Pt. is now referred to [facility] for acute in-patient re habilitation in order to maximize patient's functional independence in activities of daily living, st rength, ROM, and mobility.- Rehab Goal Patient has realistic goal of being discharged at assistance level 7-Ind to reside at Home with Fami ly/Relatives. MDM/PLAN: - Physical Therapy Gait dysfunction - to improve, our physical therapists will perform initial evaluation of pt's statu s upon admission and devise an individualized program for Gait Training, and Wheel Chair mobility Inability to transfer - to improve, our physical therapists will perform initial evaluation of pt's status upon admission and devise an individualized program for Bed mobility Need for home safety evaluation - to improve, our physical therapists will perform initial evaluatio n of pt's status upon admission and devise an individualized program for Home Evaluation Need in caregiver upon discharge - to improve, our physical therapists will perform initial evaluati on of pt's status upon admission and devise an individualized program for Caregiver Training New precaution - to improve, our physical therapists will perform initial evaluation of pt's status upon admission and devise an individualized program for Patient precaution education Edema - to improve, our physical therapists will perform initial evaluation of pt's status upon admi ssion and devise an individualized program for Elevation Training, and Lymphedema Therapy Poor balance - to improve, our physical therapists will perform initial evaluation of pt's status up on admission and devise an individualized program for Balance Training Poor endurance - to improve, our physical therapists will perform initial evaluation of pt's status upon admission and devise an individualized program for Endurance Training Weakness - to improve, our physical therapists will perform initial evaluation of pt's status upon a dmission and devise an individualized program for Aquatic Therapy, Neuromuscular Reeducation, and Str engthening Achieving independence - to improve, our physical therapists will perform initial evaluation of pt's status upon admission and devise an individualized program for Community Reintegration Activities - Occupational Therapy ADL deficits - to improve, our occupation therapists will perform initial evaluation of pt's status upon admission and devise an individualized program for Bathing, Bed mobility, Community Reintegratio n, Cooking, Dressing, Eating, Fine Motor Skills, Grooming, Homemaking, Kitchen Mobility, Laundry, Pat ient Education, Safety Awareness, Splinting - Positioning, Transfers(Toilet, Tub, Shower), and Wheel Chair Management Cognitive deficits - to improve, our occupation therapists will perform initial evaluation of pt's s tatus upon admission and devise an individualized program for Cognition - orientation Need for acute care physical therapist - to improve, our occupation therapists will perform initial evaluation of pt's status upon admission and devise an individualized program for Caregiver Training Weakness - to improve, our occupation therapists will perform initial evaluation of pt's status upon admission and devise an individualized program for Aquatic Therapy, Balance, Endurance, UE ROM, and UE strengthening - Other See attached MAR (Medication Administration Record) - Diet Type Continue Regular - Diet - Liquid Texture Continue Regular - Tube Feed Continue N/A - Bladder care per protocol - Weight Bearing Precaution WBAT left LE - Fall Precaution Bed alarm SAFTY AND FALL TABS alarm Wheel chair alarm - Skin care per protocol - Diet - Solid Texture Continue Regular - Shower allowing shower for Dementia, TBI, Stroke, or others FUNCTIONAL STATUS: UPDATED AT WEEKLY TEAM CONFERENCE - Bladder Same accident frequency: 7-Ind - No accidents in the past 7 days - Bowel Same accident frequency: 7-Ind - No accidents in the past 7 days - Walking Same score based on distance walked: 0(N/A) Same score based on distance walked: 3(>=150ft) - Wheelchair Same score based on distance traveled: 0(N/A) FUNCTIONAL STATUS: - Self-Care A. Eating sup B. Grooming sup C. Bathing Chandler D. Dressing - Upper Chandler E. Dressing - Lower modA F. Toileting Chandler - Sphincter Control G. Bladder control Valdez H. Bowel control Valdez - Transfers Control I. Bed/Chair/Wheelchair Chandler J. Toilet Chandler K. Tub/Shower modA - Locomotion L. Walk/Wheelchair (B) Chandler M. Stairs Chandler - Communication N. Comprehension (B) Chandler O. Expression (B) Chandler - Social Cognition P. Social Interaction Valdez Q. Problem Solving sup R. Memory sup - Endurance Fair - Balance Fair - Safety Awareness Fair QI SCORES: - Self-Care A. Eating 03-Partial/moderate assistance B. Oral hygiene 03-Partial/moderate assistance C. Toileting hygiene 03-Partial/moderate assistance E. Shower/bathe self 02-Substantial/maximal assistance F. Upper body dressing 02-Substantial/maximal assistance G. Lower body dressing 02-Substantial/maximal assistance H. Putting on/taking off footwear 88-Not attempted due to medical condition or safety concerns - Mobility A. Roll left and right 03-Partial/moderate assistance B. Sit to lying 03-Partial/moderate assistance C. Lying to sitting on side of bed 03-Partial/moderate assistance D. Sit to stand 03-Partial/moderate assistance E. Chair/[id number] transfer 03-Partial/moderate assistance F. Toilet transfer 03-Partial/moderate assistance G. Car transfer 88-Not attempted due to medical condition or safety concerns I. Walk 10 feet 03-Partial/moderate assistance J. Walk 50 feet with two turns 03-Partial/moderate assistance K. Walk 150 feet 03-Partial/moderate assistance L. Walking 10 feet on uneven surfaces 88-Not attempted due to medical condition or safety concerns M. 1 step (curb) 88-Not attempted due to medical condition or safety concerns N. 4 steps 88-Not attempted due to medical condition or safety concerns O. 12 steps 88-Not attempted due to medical condition or safety concerns P. Picking up object 88-Not attempted due to medical condition or safety concerns R. Wheel 50 feet with two turns 88-Not attempted due to medical condition or safety concerns S. Wheel 150 feet 88-Not attempted due to medical condition or safety concerns - Bladder and Bowel Bladder continence Bowel continence - Endurance Fair - Balance Fair - Safety Awareness Fair CURRENT [facility]. DEFICITS: Self-Care, Mobility, Endurance, Balance, and Safety Awareness SIGNATURE PANEL: (CDT)
[2021-08-15] MEDS: ATORVASTATIN 40 MG TAB PO SCH (19:44)
[2021-08-15] MEDS: CIPROFLOXACIN HCL 500 MG TAB PO SCH (19:44)
[2021-08-15] MEDS: LATANOPROST 0.005% 2.5ML OPTH OPTH SCH (19:49)
[2021-08-16] MEDS: LEVOTHYROXINE SOD 0.05 MG TABLET PO SCH (05:13)
[2021-08-16] MEDS: INSULIN -REGULAR HUMAN 50 UNIT/0.5 ML ML SQ SCH ×4 (07:30→19:42)
[2021-08-16] MEDS: LIDOCAINE 4% PATCH TOP SCH (07:55)
[2021-08-16] MEDS: PIOGLITAZONE 15 MG TAB PO SCH (07:56)
[2021-08-16] MEDS: DULOXETINE 20 MG CAP PO SCH (07:56)
[2021-08-16] MEDS: DILTIAZEM HCL 120 MG SR CAP PO SCH (07:56)
[2021-08-16] MEDS: atenoloL 25 MG TAB PO SCH ×2 (07:56→19:42)
[2021-08-16] MEDS: GABAPENTIN 300 MG CAP PO SCH ×3 (07:57→19:42)
[2021-08-16] MEDS: APIXABAN 2.5 MG TABLET PO SCH ×2 (07:57→19:42)
[2021-08-16] MEDS: LOSARTAN POTASSIUM 50 MG TABLET PO SCH ×2 (07:57→19:41)
[2021-08-16] MEDS: ASPIRIN EC 81 MG TAB PO SCH (07:58)
[2021-08-16] MEDS: GLIMEPIRIDE 2 MG TABLET PO SCH (07:58)
[2021-08-16] MEDS: ALOGLIPTIN BENZOATE 12.5 MG TABLET PO SCH (07:58)
[2021-08-16] MEDS: CIPROFLOXACIN HCL 500 MG TAB PO SCH ×2 (07:58→19:41)
[2021-08-16] MEDS: CRANBERRY FRUIT EXTRACT 400 MG CAP PO SCH ×2 (07:58→19:41)
[2021-08-16] MEDS: INSULIN GLARGINE 100 UNIT/ML SQ SCH (08:00)
[2021-08-16] MEDS: TRAMADOL HCL 50 MG TAB PO PRN ×3 (08:01→20:23)
--- NOTE | 2021-08-16 09:46 | P.RH.PN ---
Estimated Length of Stay: 18 Expected Discharge Date: 08/21/21 Discharge Disposition Plan: Home Family Support: Yes Intermediate Goal: Mobility, Transfers, Self Care Vital Signs: Last Vital Signs Temp 97.8 F 08/16/21 06:58 Pulse 64 08/16/21 07:56 Resp 14 08/16/21 08:01 BP 151/65 H 08/16/21 07:56 Pulse Ox 97 08/16/21 08:01 Laboratory: Laboratory Last Values WBC 8.4 K/uL (4.3-10.9) D 08/15/21 04:08 RBC 3.79 M/uL (3.86-4.86) L 08/15/21 04:08 Hgb 11.8 g/dL (12.0-15.0) L 08/15/21 04:08 Hct 34.5 % (36.0-45.0) L 08/15/21 04:08 MCV 91.0 fL (80-100) 08/15/21 04:08 MCH 31.2 pg (27.0-35.0) 08/15/21 04:08 MCHC 34.3 g/dL (32.0-36.0) 08/15/21 04:08 RDW 13.5 % (12.1-15.2) 08/15/21 04:08 Plt Count 134 K/uL (152-406) L 08/15/21 04:08 MPV 11.9 fL (7.6-11.3) H 08/15/21 04:08 Neutrophils % 63.6 % (41.7-73.7) 08/15/21 04:08 Lymphocytes % 20.5 % (15.3-44.8) 08/15/21 04:08 Monocytes % 12.5 % (3.3-12.3) H 08/15/21 04:08 Eosinophils % 2.6 % (0-4.4) 08/15/21 04:08 Basophils % 0.8 % (0-1.3) 08/15/21 04:08 Absolute Neutrophils 5.3 K/uL (1.8-8.0) 08/15/21 04:08 Absolute Lymphocytes 1.7 K/uL (0.7-4.9) 08/15/21 04:08 Absolute Monocytes 1.0 K/uL (0.1-1.3) 08/15/21 04:08 Absolute Eosinophils 0.2 K/uL (0-0.5) 08/15/21 04:08 Absolute Basophils 0.1 K/uL (0-0.5) 08/15/21 04:08 Sodium 142 mmol/L (136-145) 08/15/21 04:08 Potassium 4.2 mmol/L (3.5-5.1) 08/15/21 04:08 Chloride 113 mmol/L (98-107) H 08/15/21 04:08 Carbon Dioxide 24 mmol/L (21-32) 08/15/21 04:08 Anion Gap 9.2 mEq/L (5.0-15.0) 08/15/21 04:08 BUN 23 mg/dL (7-18) H 08/15/21 04:08 Creatinine 1.03 mg/dL (0.55-1.3) 08/15/21 04:08 Estimated GFR 53 mL/min (=/>90) L 08/15/21 04:08 Glucose 201 mg/dL (74-106) H 08/15/21 04:08 POC Glucose 123 mg/dL (65-120) H 08/16/21 08:22 Calcium 8.4 mg/dL (8.5-10.1) L 08/15/21 04:08 Magnesium 2.2 mg/dL (1.8-2.4) 08/15/21 04:08 Albumin 2.0 g/dL (3.4-5.0) L 08/15/21 04:08 Prealbumin 14.8 mg/dL (20-40) L 08/15/21 04:08 Urine Color Yellow (Yellow) 08/12/21 10:50 Urine Appearance Turbid (Clear) 08/12/21 10:50 Urine pH 5.5 (5.0-7.0) 08/12/21 10:50 Ur Specific Mathias 1.010 (1.005-1.030) 08/12/21 10:50 Glucose (UA)(Auto) Negative (Negative) 08/12/21 10:50 Urine Ketones Negative (Negative) 08/12/21 10:50 Urine Blood 3+ (Negative) H 08/12/21 10:50 Urine Nitrite Positive (Negative) H 08/12/21 10:50 Urine Bilirubin Negative (Negative) 08/12/21 10:50 Urine Urobilinogen 0.2 mg/dL (0.2-1.0) 08/12/21 10:50 Ur Leukocyte Esterase 3+ (Negative) H 08/12/21 10:50 Urine RBC 5-10 /HPF (NONE SEEN) H 08/12/21 10:50 Urine WBC >50 /HPF (<5) H 08/12/21 10:50 Ur Squamous Epith Cells <5 /HPF (NONE SEEN) 08/12/21 10:50 Urine Bacteria >50 /HPF (<20) H 08/12/21 10:50 Hyaline Casts 5-10 /LPF (NONE SEEN) 08/04/21 18:20 Urine Culture Reflexed Reflexed 08/12/21 10:50 Urine Total Protein 1+ (Negative) H 08/12/21 10:50 SARS-CoV-2 Rap RNA(RT-PCR) Negative (NEGATIVE) 08/11/21 13:05 Weight: 195 lb 4.8 oz Wound Present: No Closed Surgical Incision Present: No Negative Pressure Wound Therapy Present: No Physician Update: She is making fair progress. SBA with transfers, bed mobility. Walking 250' with standby assistance. Independent with grooming, bathing, upper body dressing min assistance. Lower body dressing CGA. Transfers are min assistance. Doing very well with auditory memory, good oral motor exercises. Mild difficulty with lingual sounds. Doing well with blood sugar control. Comment: no skin breakdown. Functional Improvement: Pt. continues to improve w/ therapy. Pt. ambulated 250ft x 1 w/ no seated rest break. Pt. occasionally required VC to shift her weight forward when going from sit to stand. Summary: Patient's care plan and long-term goals have been reviewed and revised as necessary. Please see the Rehabilitation Signature page for all necessary signatures.
[2021-08-16] MEDS ORDERED: D10W 125 ML IV PRN (16:18)
[2021-08-16] MEDS: ATORVASTATIN 40 MG TAB PO SCH (19:42)
[2021-08-16] MEDS: LATANOPROST 0.005% 2.5ML OPTH OPTH SCH (19:43)
[2021-08-17] MEDS: ACETAMINOPHEN 500 MG TAB PO PRN (00:28)
[2021-08-17] MEDS: LEVOTHYROXINE SOD 0.05 MG TABLET PO SCH (06:16)
[2021-08-17] MEDS: LIDOCAINE 4% PATCH TOP SCH (06:18)
[2021-08-17] MEDS: TRAMADOL HCL 50 MG TAB PO PRN ×3 (07:27→19:45)
[2021-08-17] MEDS: GABAPENTIN 300 MG CAP PO SCH ×3 (07:28→19:46)
[2021-08-17] MEDS: INSULIN -REGULAR HUMAN 50 UNIT/0.5 ML ML SQ SCH ×4 (07:30→19:47)
[2021-08-17] MEDS: INSULIN GLARGINE 100 UNIT/ML SQ SCH ×2 (07:36→11:48)
[2021-08-17] MEDS: ALOGLIPTIN BENZOATE 12.5 MG TABLET PO SCH (07:54)
[2021-08-17] MEDS: CRANBERRY FRUIT EXTRACT 400 MG CAP PO SCH ×2 (07:55→19:46)
[2021-08-17] MEDS: PIOGLITAZONE 15 MG TAB PO SCH (07:55)
[2021-08-17] MEDS: ASPIRIN EC 81 MG TAB PO SCH (07:55)
[2021-08-17] MEDS: atenoloL 25 MG TAB PO SCH ×2 (07:55→19:46)
[2021-08-17] MEDS: CIPROFLOXACIN HCL 500 MG TAB PO SCH ×2 (07:55→19:46)
[2021-08-17] MEDS: LOSARTAN POTASSIUM 50 MG TABLET PO SCH ×2 (07:55→19:46)
[2021-08-17] MEDS: GLIMEPIRIDE 2 MG TABLET PO SCH (07:55)
[2021-08-17] MEDS: APIXABAN 2.5 MG TABLET PO SCH ×2 (07:56→19:46)
[2021-08-17] MEDS: DULOXETINE 20 MG CAP PO SCH (07:56)
[2021-08-17] MEDS: DILTIAZEM HCL 120 MG SR CAP PO SCH (07:56)
[2021-08-17] MEDS: LATANOPROST 0.005% 2.5ML OPTH OPTH SCH (19:45)
[2021-08-17] MEDS: ATORVASTATIN 40 MG TAB PO SCH (19:46)
[2021-08-18] MEDS: LEVOTHYROXINE SOD 0.05 MG TABLET PO SCH (06:36)
[2021-08-18] MEDS: LIDOCAINE 4% PATCH TOP SCH ×2 (06:36→07:50)
[2021-08-18] MEDS: INSULIN -REGULAR HUMAN 50 UNIT/0.5 ML ML SQ SCH ×4 (07:30→19:45)
[2021-08-18] MEDS: TRAMADOL HCL 50 MG TAB PO PRN ×3 (07:40→19:44)
[2021-08-18] MEDS: GABAPENTIN 300 MG CAP PO SCH ×3 (07:40→19:44)
[2021-08-18] MEDS: INSULIN GLARGINE 100 UNIT/ML SQ SCH ×2 (08:00→12:00)
[2021-08-18] MEDS: PIOGLITAZONE 15 MG TAB PO SCH (08:08)
[2021-08-18] MEDS: ASPIRIN EC 81 MG TAB PO SCH (08:08)
[2021-08-18] MEDS: atenoloL 25 MG TAB PO SCH ×2 (08:08→19:44)
[2021-08-18] MEDS: DULOXETINE 20 MG CAP PO SCH (08:09)
[2021-08-18] MEDS: GLIMEPIRIDE 2 MG TABLET PO SCH (08:09)
[2021-08-18] MEDS: ALOGLIPTIN BENZOATE 12.5 MG TABLET PO SCH (08:09)
[2021-08-18] MEDS: DILTIAZEM HCL 120 MG SR CAP PO SCH (08:09)
[2021-08-18] MEDS: CIPROFLOXACIN HCL 500 MG TAB PO SCH ×2 (08:09→19:45)
[2021-08-18] MEDS: CRANBERRY FRUIT EXTRACT 400 MG CAP PO SCH ×2 (08:09→19:44)
[2021-08-18] MEDS: LOSARTAN POTASSIUM 50 MG TABLET PO SCH ×2 (08:09→19:44)
[2021-08-18] MEDS: APIXABAN 2.5 MG TABLET PO SCH ×2 (08:10→19:45)
[2021-08-18] MEDS: FEXOFENADINE 180 MG TAB PO PRN (10:28)
[2021-08-18] MEDS: ATORVASTATIN 40 MG TAB PO SCH (19:44)
[2021-08-18] MEDS: LATANOPROST 0.005% 2.5ML OPTH OPTH SCH (19:45)
[2021-08-19] MEDS: ACETAMINOPHEN 500 MG TAB PO PRN (03:56)
[2021-08-19] MEDS: LEVOTHYROXINE SOD 0.05 MG TABLET PO SCH (06:49)
[2021-08-19] MEDS: GABAPENTIN 300 MG CAP PO SCH ×3 (06:50→20:12)
[2021-08-19] MEDS: TRAMADOL HCL 50 MG TAB PO PRN ×2 (06:50→13:08)
[2021-08-19] MEDS: GLIMEPIRIDE 2 MG TABLET PO SCH (07:20)
[2021-08-19] MEDS: ALOGLIPTIN BENZOATE 12.5 MG TABLET PO SCH (07:20)
[2021-08-19] MEDS: LOSARTAN POTASSIUM 50 MG TABLET PO SCH ×2 (07:20→20:09)
[2021-08-19] MEDS: PIOGLITAZONE 15 MG TAB PO SCH (07:20)
[2021-08-19] MEDS: CRANBERRY FRUIT EXTRACT 400 MG CAP PO SCH ×2 (07:21→20:09)
[2021-08-19] MEDS: DULOXETINE 20 MG CAP PO SCH (07:21)
[2021-08-19] MEDS: ASPIRIN EC 81 MG TAB PO SCH (07:21)
[2021-08-19] MEDS: CIPROFLOXACIN HCL 500 MG TAB PO SCH ×2 (07:21→20:09)
[2021-08-19] MEDS: APIXABAN 2.5 MG TABLET PO SCH ×2 (07:21→20:09)
[2021-08-19] MEDS: atenoloL 25 MG TAB PO SCH ×2 (07:22→20:09)
[2021-08-19] MEDS: DILTIAZEM HCL 120 MG SR CAP PO SCH (07:22)
[2021-08-19] MEDS: INSULIN -REGULAR HUMAN 50 UNIT/0.5 ML ML SQ SCH ×4 (07:30→20:11)
[2021-08-19] MEDS: LIDOCAINE 4% PATCH TOP SCH (07:52)
[2021-08-19] MEDS: INSULIN GLARGINE 100 UNIT/ML SQ SCH (08:21)
[2021-08-19] MEDS: LATANOPROST 0.005% 2.5ML OPTH OPTH SCH (20:10)
[2021-08-19] MEDS: ATORVASTATIN 40 MG TAB PO SCH (20:12)
--- NOTE | 2021-08-19 22:12 | R.PN ---
PROGRESS NOTES ENCOUNTER DATE AND TIME: 08/19/2021 22:08 (CDT) NAME ROXY BOBBY DATE OF : 1950 DATE OF ADMISSION: 08/04/2021 15:34 (CDT) STROKECHIEF COMPLAINT: Stroke with left face, arm and leg weakness SUBJECTIVE: Pt denied any depression. Pt denied any Shortness of Breath. CBC with differential is normal except Hgb is mildly low at 11.8. Glucose 64 to 146, prealbumin 14.8, UA is negative. Ambulated 250' with standby assistance using a rolling walker. Self-propelled wheelchair 100' with st andby assistance. Did oral motor exercises with speech therapy. After having increased urinary frequency, UA shows nitrite +ve, estrase +ve, >50 bacteria, > 50 WBC. Cultures showed 4+ gram negative rods and mixed cele. VITAL SIGNS Temperature: 97.8 F SBP/DBP: 129/59 Pulse: 63 Resp: 16 MEDICATION ALLERGIES: No Known Drug Allergies (NKDA) ENVIRONMENTAL ALLERGIES: - Substance Allergies None Known - Other Allergies None Known NURSING: - Shower allowing shower - Bladder care per protocol - Skin care per protocol PRECAUTIONS: - Weight Bearing Precaution WBAT left LE - Fall Precaution SAFTY AND FALL ACTIVITIES OOB only with supervision THERAPIES: - Dietary and Nutrition Adequate Nutrition. Nutritional Education. Nutritional Supplements. Evaluate and Treat. - Occupational Therapy Cognitive Retraining. Patient needs Occupational Therapy for a daily minimum of 1.5 hours at least 5 out of 7 days, to improve Activities of Daily Living, including: Eating, Grooming, Bathing, Dressing, Toileting, Toilet Transfers, Community Reintegration, Higher functional activities, Adaptive Equipme nt, Splinting, Household Tasks, and Other activities as determined. Visual Perceptual Training. Evalu ate and Treat. Transfer Training. Safety Awareness. Patient/Family Education. ADL Training. Household Tasks. Eating. - Speech Therapy Cognitive Training. Expressive Language Skills. Memory Strategies. Patient needs Speech Therapy for a daily minimum of 1.5 hours at least 5 out of 7 days, to improve: Swallowing, Cognition, Language Ski lls, and Compensatory Strategies. Receptive Language Skills. Speech Intelligibility Training. Evaluat e and Treat. - Physical Therapy Patient needs Physical Therapy for a daily minimum of 1.5 hours at least 5 out of 7 days, to improve: Mobility, Strengthening, Transfers, Stretching, ROM, Endurance, Ability to manage stairs, Gait, and Balance. Mobility Training. Safety Awareness. Gait Training. Balance Training. Transfer Training. Sarah luate and Treat. Patient/Family Education. LE Strengthening. PHYSICAL EXAM - Gen Alert and awake Lying in bed No apparent distress Oriented to: person, time, and place - Skin No breakdown Mild left facial numbness and weakness. - Eyes No abnormalities - ENMT No abnormalities - Neck No abnormalities - CVS RRR - Chest No abnormalities - Abd Soft - GI Soft Deferred - No abnormalities - Ext No significant edema - MSK 3+ to 4+/5 weakness in left upper and lower extremity - Neuro 3+ to 4+/5 weakness in left upper and lower extremity - Psych No abnormalities ASSESSMENT: Pt. is a 70 yo Right-handed female.On 07/28/2021 Pt. presented to [facility] with sudden onset of left-side weakness.On 07/28/2021 she was admitted to [facility] with diagnosis STROKE.Her impairment category is Stroke 01 - Left Body (Right Brain) (01.1).Pre-morbidly, Pt. was independent/mod-I in Locomotion, Safety Awareness, Social Cognition, and Balance; and she had good Sp hincter Control, Self-Care, Communication, and Endurance.Currently, she has deficits of Locomotion, S afety Awareness, Balance, Social Cognition, Transfers Control, Self-Care, Sphincter Control, Communic ation, and Endurance.Pt. is now referred to [facility] for acute in-patient re habilitation in order to maximize patient's functional independence in activities of daily living, st rength, ROM, and mobility.- Rehab Goal Patient has realistic goal of being discharged at assistance level 7-Ind to reside at Home with Fami ly/Relatives. MDM/PLAN: - Physical Therapy Gait dysfunction - to improve, our physical therapists will perform initial evaluation of pt's statu s upon admission and devise an individualized program for Gait Training, and Wheel Chair mobility Inability to transfer - to improve, our physical therapists will perform initial evaluation of pt's status upon admission and devise an individualized program for Bed mobility Need for home safety evaluation - to improve, our physical therapists will perform initial evaluatio n of pt's status upon admission and devise an individualized program for Home Evaluation Need in caregiver upon discharge - to improve, our physical therapists will perform initial evaluati on of pt's status upon admission and devise an individualized program for Caregiver Training New precaution - to improve, our physical therapists will perform initial evaluation of pt's status upon admission and devise an individualized program for Patient precaution education Edema - to improve, our physical therapists will perform initial evaluation of pt's status upon admi ssion and devise an individualized program for Elevation Training, and Lymphedema Therapy Poor balance - to improve, our physical therapists will perform initial evaluation of pt's status up on admission and devise an individualized program for Balance Training Poor endurance - to improve, our physical therapists will perform initial evaluation of pt's status upon admission and devise an individualized program for Endurance Training Weakness - to improve, our physical therapists will perform initial evaluation of pt's status upon a dmission and devise an individualized program for Aquatic Therapy, Neuromuscular Reeducation, and Str engthening Achieving independence - to improve, our physical therapists will perform initial evaluation of pt's status upon admission and devise an individualized program for Community Reintegration Activities - Occupational Therapy ADL deficits - to improve, our occupation therapists will perform initial evaluation of pt's status upon admission and devise an individualized program for Bathing, Bed mobility, Community Reintegratio n, Cooking, Dressing, Eating, Fine Motor Skills, Grooming, Homemaking, Kitchen Mobility, Laundry, Pat ient Education, Safety Awareness, Splinting - Positioning, Transfers(Toilet, Tub, Shower), and Wheel Chair Management Cognitive deficits - to improve, our occupation therapists will perform initial evaluation of pt's s tatus upon admission and devise an individualized program for Cognition - orientation Need for healthcare administrator - to improve, our occupation therapists will perform initial evaluation of pt's status upon admission and devise an individualized program for Caregiver Training Weakness - to improve, our occupation therapists will perform initial evaluation of pt's status upon admission and devise an individualized program for Aquatic Therapy, Balance, Endurance, UE ROM, and UE strengthening - Other See attached MAR (Medication Administration Record) - Diet Type Continue Regular - Diet - Liquid Texture Continue Regular - Tube Feed Continue N/A - Bladder care per protocol - Weight Bearing Precaution WBAT left LE - Fall Precaution Bed alarm SAFTY AND FALL TABS alarm Wheel chair alarm - Skin care per protocol - Diet - Solid Texture Continue Regular - Shower allowing shower for Dementia, TBI, Stroke, or others FUNCTIONAL STATUS: UPDATED AT WEEKLY TEAM CONFERENCE - Bladder Same accident frequency: 7-Ind - No accidents in the past 7 days - Bowel Same accident frequency: 7-Ind - No accidents in the past 7 days - Walking Same score based on distance walked: 0(N/A) Same score based on distance walked: 3(>=150ft) - Wheelchair Same score based on distance traveled: 0(N/A) FUNCTIONAL STATUS: - Self-Care A. Eating sup B. Grooming sup C. Bathing Chandler D. Dressing - Upper Chandler E. Dressing - Lower modA F. Toileting Chandler - Sphincter Control G. Bladder control Valdez H. Bowel control Valdez - Transfers Control I. Bed/Chair/Wheelchair Chandler J. Toilet Chandler K. Tub/Shower modA - Locomotion L. Walk/Wheelchair (B) Chandler M. Stairs Chandler - Communication N. Comprehension (B) Chandler O. Expression (B) Chandler - Social Cognition P. Social Interaction Valdez Q. Problem Solving sup R. Memory sup - Endurance Fair - Balance Fair - Safety Awareness Fair QI SCORES: - Self-Care A. Eating 03-Partial/moderate assistance B. Oral hygiene 03-Partial/moderate assistance C. Toileting hygiene 03-Partial/moderate assistance E. Shower/bathe self 02-Substantial/maximal assistance F. Upper body dressing 02-Substantial/maximal assistance G. Lower body dressing 02-Substantial/maximal assistance H. Putting on/taking off footwear 88-Not attempted due to medical condition or safety concerns - Mobility A. Roll left and right 03-Partial/moderate assistance B. Sit to lying 03-Partial/moderate assistance C. Lying to sitting on side of bed 03-Partial/moderate assistance D. Sit to stand 03-Partial/moderate assistance E. Chair/[id number] transfer 03-Partial/moderate assistance F. Toilet transfer 03-Partial/moderate assistance G. Car transfer 88-Not attempted due to medical condition or safety concerns I. Walk 10 feet 03-Partial/moderate assistance J. Walk 50 feet with two turns 03-Partial/moderate assistance K. Walk 150 feet 03-Partial/moderate assistance L. Walking 10 feet on uneven surfaces 88-Not attempted due to medical condition or safety concerns M. 1 step (curb) 88-Not attempted due to medical condition or safety concerns N. 4 steps 88-Not attempted due to medical condition or safety concerns O. 12 steps 88-Not attempted due to medical condition or safety concerns P. Picking up object 88-Not attempted due to medical condition or safety concerns R. Wheel 50 feet with two turns 88-Not attempted due to medical condition or safety concerns S. Wheel 150 feet 88-Not attempted due to medical condition or safety concerns - Bladder and Bowel Bladder continence Bowel continence - Endurance Fair - Balance Fair - Safety Awareness Fair CURRENT [facility]. DEFICITS: Self-Care, Mobility, Endurance, Balance, and Safety Awareness SIGNATURE PANEL: (CDT)
[2021-08-20] MEDS: LEVOTHYROXINE SOD 0.05 MG TABLET PO SCH (05:18)
[2021-08-20] MEDS: INSULIN -REGULAR HUMAN 50 UNIT/0.5 ML ML SQ SCH ×4 (07:30→19:15)
[2021-08-20] MEDS: INSULIN GLARGINE 100 UNIT/ML SQ SCH (08:00)
[2021-08-20] MEDS: GABAPENTIN 300 MG CAP PO SCH ×3 (08:20→19:14)
[2021-08-20] MEDS: DILTIAZEM HCL 120 MG SR CAP PO SCH (08:21)
[2021-08-20] MEDS: PIOGLITAZONE 15 MG TAB PO SCH (08:21)
[2021-08-20] MEDS: LOSARTAN POTASSIUM 50 MG TABLET PO SCH ×2 (08:21→19:15)
[2021-08-20] MEDS: ASPIRIN EC 81 MG TAB PO SCH (08:21)
[2021-08-20] MEDS: DULOXETINE 20 MG CAP PO SCH (08:22)
[2021-08-20] MEDS: GLIMEPIRIDE 2 MG TABLET PO SCH (08:22)
[2021-08-20] MEDS: atenoloL 25 MG TAB PO SCH ×2 (08:22→19:15)
[2021-08-20] MEDS: CIPROFLOXACIN HCL 500 MG TAB PO SCH (08:22)
[2021-08-20] MEDS: CRANBERRY FRUIT EXTRACT 400 MG CAP PO SCH ×2 (08:22→19:14)
[2021-08-20] MEDS: APIXABAN 2.5 MG TABLET PO SCH ×2 (08:22→19:14)
[2021-08-20] MEDS: LIDOCAINE 4% PATCH TOP SCH (08:23)
[2021-08-20] MEDS: TRAMADOL HCL 50 MG TAB PO PRN ×2 (08:23→15:00)
[2021-08-20] MEDS: ALOGLIPTIN BENZOATE 12.5 MG TABLET PO SCH (08:25)
[2021-08-20] MEDS: ATORVASTATIN 40 MG TAB PO SCH (19:14)
[2021-08-20] MEDS: LATANOPROST 0.005% 2.5ML OPTH OPTH SCH (19:14)
--- NOTE | 2021-08-20 19:56 | R.PN ---
PROGRESS NOTES ENCOUNTER DATE AND TIME: 08/20/2021 19:51 (CDT) NAME ROXY BOBBY DATE OF : 1950 DATE OF ADMISSION: 08/04/2021 15:34 (CDT) STROKECHIEF COMPLAINT: Stroke with left face, arm and leg weakness SUBJECTIVE: Pt denied any depression. Pt denied any Shortness of Breath. CBC with differential is normal except Hgb is mildly low at 11.8. Glucose 71 to 193, prealbumin 14.8, UA is negative. Ambulated 350' with standby assistance using a rolling walker. Self-propelled wheelchair 250' with st andby assistance. Did oral motor exercises with speech therapy. After having increased urinary frequency, UA shows nitrite +ve, estrase +ve, >50 bacteria, > 50 WBC. Cultures showed 4+ gram negative rods and mixed cele. Citrobacter Freundii Complex was cultured and sensitive to Cipro. She completed Cipro 500 mg twice daily for 5 days. Eliquis 2.5 mg bid for DVT prophylaxis. VITAL SIGNS Temperature: 98.9 F SBP/DBP: 137/63 Pulse: 72 Resp: 16 MEDICATION ALLERGIES: No Known Drug Allergies (NKDA) ENVIRONMENTAL ALLERGIES: - Substance Allergies None Known - Other Allergies None Known NURSING: - Shower allowing shower - Bladder care per protocol - Skin care per protocol PRECAUTIONS: - Weight Bearing Precaution WBAT left LE - Fall Precaution SAFTY AND FALL ACTIVITIES OOB only with supervision THERAPIES: - Dietary and Nutrition Adequate Nutrition. Nutritional Education. Nutritional Supplements. Evaluate and Treat. - Occupational Therapy Cognitive Retraining. Patient needs Occupational Therapy for a daily minimum of 1.5 hours at least 5 out of 7 days, to improve Activities of Daily Living, including: Eating, Grooming, Bathing, Dressing, Toileting, Toilet Transfers, Community Reintegration, Higher functional activities, Adaptive Equipme nt, Splinting, Household Tasks, and Other activities as determined. Visual Perceptual Training. Evalu ate and Treat. Transfer Training. Safety Awareness. Patient/Family Education. ADL Training. Household Tasks. Eating. - Speech Therapy Cognitive Training. Expressive Language Skills. Memory Strategies. Patient needs Speech Therapy for a daily minimum of 1.5 hours at least 5 out of 7 days, to improve: Swallowing, Cognition, Language Ski lls, and Compensatory Strategies. Receptive Language Skills. Speech Intelligibility Training. Evaluat e and Treat. - Physical Therapy Patient needs Physical Therapy for a daily minimum of 1.5 hours at least 5 out of 7 days, to improve: Mobility, Strengthening, Transfers, Stretching, ROM, Endurance, Ability to manage stairs, Gait, and Balance. Mobility Training. Safety Awareness. Gait Training. Balance Training. Transfer Training. Sarah luate and Treat. Patient/Family Education. LE Strengthening. PHYSICAL EXAM - Gen Alert and awake Lying in bed No apparent distress Oriented to: person, time, and place - Skin No breakdown Mild left facial numbness and weakness. - Eyes No abnormalities - ENMT No abnormalities - Neck No abnormalities - CVS RRR - Chest No abnormalities - Abd Soft - GI Soft Deferred - No abnormalities - Ext No significant edema - MSK 3+ to 4+/5 weakness in left upper and lower extremity - Neuro 3+ to 4+/5 weakness in left upper and lower extremity - Psych No abnormalities ASSESSMENT: Pt. is a 70 yo Right-handed female.On 07/28/2021 Pt. presented to [facility] with sudden onset of left-side weakness.On 07/28/2021 she was admitted to [facility] with diagnosis STROKE.Her impairment category is Stroke 01 - Left Body (Right Brain) (01.1).Pre-morbidly, Pt. was independent/mod-I in Locomotion, Safety Awareness, Social Cognition, and Balance; and she had good Sp hincter Control, Self-Care, Communication, and Endurance.Currently, she has deficits of Locomotion, S afety Awareness, Balance, Social Cognition, Transfers Control, Self-Care, Sphincter Control, Communic ation, and Endurance.Pt. is now referred to [facility] for acute in-patient re habilitation in order to maximize patient's functional independence in activities of daily living, st rength, ROM, and mobility.- Rehab Goal Patient has realistic goal of being discharged at assistance level 7-Ind to reside at Home with Fami ly/Relatives. MDM/PLAN: - Physical Therapy Gait dysfunction - to improve, our physical therapists will perform initial evaluation of pt's statu s upon admission and devise an individualized program for Gait Training, and Wheel Chair mobility Inability to transfer - to improve, our physical therapists will perform initial evaluation of pt's status upon admission and devise an individualized program for Bed mobility Need for home safety evaluation - to improve, our physical therapists will perform initial evaluatio n of pt's status upon admission and devise an individualized program for Home Evaluation Need in caregiver upon discharge - to improve, our physical therapists will perform initial evaluati on of pt's status upon admission and devise an individualized program for Caregiver Training New precaution - to improve, our physical therapists will perform initial evaluation of pt's status upon admission and devise an individualized program for Patient precaution education Edema - to improve, our physical therapists will perform initial evaluation of pt's status upon admi ssion and devise an individualized program for Elevation Training, and Lymphedema Therapy Poor balance - to improve, our physical therapists will perform initial evaluation of pt's status up on admission and devise an individualized program for Balance Training Poor endurance - to improve, our physical therapists will perform initial evaluation of pt's status upon admission and devise an individualized program for Endurance Training Weakness - to improve, our physical therapists will perform initial evaluation of pt's status upon a dmission and devise an individualized program for Aquatic Therapy, Neuromuscular Reeducation, and Str engthening Achieving independence - to improve, our physical therapists will perform initial evaluation of pt's status upon admission and devise an individualized program for Community Reintegration Activities - Occupational Therapy ADL deficits - to improve, our occupation therapists will perform initial evaluation of pt's status upon admission and devise an individualized program for Bathing, Bed mobility, Community Reintegratio n, Cooking, Dressing, Eating, Fine Motor Skills, Grooming, Homemaking, Kitchen Mobility, Laundry, Pat ient Education, Safety Awareness, Splinting - Positioning, Transfers(Toilet, Tub, Shower), and Wheel Chair Management Cognitive deficits - to improve, our occupation therapists will perform initial evaluation of pt's s tatus upon admission and devise an individualized program for Cognition - orientation Need for lawn care worker - to improve, our occupation therapists will perform initial evaluation of pt's status upon admission and devise an individualized program for Caregiver Training Weakness - to improve, our occupation therapists will perform initial evaluation of pt's status upon admission and devise an individualized program for Aquatic Therapy, Balance, Endurance, UE ROM, and UE strengthening - Other See attached MAR (Medication Administration Record) - Diet Type Continue Regular - Diet - Liquid Texture Continue Regular - Tube Feed Continue N/A - Bladder care per protocol - Weight Bearing Precaution WBAT left LE - Fall Precaution Bed alarm SAFTY AND FALL TABS alarm Wheel chair alarm - Skin care per protocol - Diet - Solid Texture Continue Regular - Shower allowing shower for Dementia, TBI, Stroke, or others FUNCTIONAL STATUS: UPDATED AT WEEKLY TEAM CONFERENCE - Bladder Same accident frequency: 7-Ind - No accidents in the past 7 days - Bowel Same accident frequency: 7-Ind - No accidents in the past 7 days - Walking Same score based on distance walked: 0(N/A) Same score based on distance walked: 3(>=150ft) - Wheelchair Same score based on distance traveled: 0(N/A) FUNCTIONAL STATUS: - Self-Care A. Eating sup B. Grooming sup C. Bathing Chandler D. Dressing - Upper Chandler E. Dressing - Lower modA F. Toileting Chandler - Sphincter Control G. Bladder control Valdez H. Bowel control Valdez - Transfers Control I. Bed/Chair/Wheelchair Chandler J. Toilet Chandler K. Tub/Shower modA - Locomotion L. Walk/Wheelchair (B) Chandler M. Stairs Chandler - Communication N. Comprehension (B) Chandler O. Expression (B) Chandler - Social Cognition P. Social Interaction Valdez Q. Problem Solving sup R. Memory sup - Endurance Fair - Balance Fair - Safety Awareness Fair QI SCORES: - Self-Care A. Eating 03-Partial/moderate assistance B. Oral hygiene 03-Partial/moderate assistance C. Toileting hygiene 03-Partial/moderate assistance E. Shower/bathe self 02-Substantial/maximal assistance F. Upper body dressing 02-Substantial/maximal assistance G. Lower body dressing 02-Substantial/maximal assistance H. Putting on/taking off footwear 88-Not attempted due to medical condition or safety concerns - Mobility A. Roll left and right 03-Partial/moderate assistance B. Sit to lying 03-Partial/moderate assistance C. Lying to sitting on side of bed 03-Partial/moderate assistance D. Sit to stand 03-Partial/moderate assistance E. Chair/[id number] transfer 03-Partial/moderate assistance F. Toilet transfer 03-Partial/moderate assistance G. Car transfer 88-Not attempted due to medical condition or safety concerns I. Walk 10 feet 03-Partial/moderate assistance J. Walk 50 feet with two turns 03-Partial/moderate assistance K. Walk 150 feet 03-Partial/moderate assistance L. Walking 10 feet on uneven surfaces 88-Not attempted due to medical condition or safety concerns M. 1 step (curb) 88-Not attempted due to medical condition or safety concerns N. 4 steps 88-Not attempted due to medical condition or safety concerns O. 12 steps 88-Not attempted due to medical condition or safety concerns P. Picking up object 88-Not attempted due to medical condition or safety concerns R. Wheel 50 feet with two turns 88-Not attempted due to medical condition or safety concerns S. Wheel 150 feet 88-Not attempted due to medical condition or safety concerns - Bladder and Bowel Bladder continence Bowel continence - Endurance Fair - Balance Fair - Safety Awareness Fair CURRENT [facility]. DEFICITS: Self-Care, Mobility, Endurance, Balance, and Safety Awareness SIGNATURE PANEL: (CDT)
[2021-08-21] MEDS: LEVOTHYROXINE SOD 0.05 MG TABLET PO SCH (05:36)
[2021-08-21 07:07] VITALS: BP 137/60; TEMP 97.1
[2021-08-21] MEDS: INSULIN -REGULAR HUMAN 50 UNIT/0.5 ML ML SQ SCH ×2 (07:17→12:22)
[2021-08-21] MEDS: LIDOCAINE 4% PATCH TOP SCH (07:18)
[2021-08-21] MEDS: INSULIN GLARGINE 100 UNIT/ML SQ SCH (07:19)
[2021-08-21] MEDS: LOSARTAN POTASSIUM 50 MG TABLET PO SCH (08:18)
[2021-08-21] MEDS: ASPIRIN EC 81 MG TAB PO SCH (08:18)
[2021-08-21] MEDS: DILTIAZEM HCL 120 MG SR CAP PO SCH (08:18)
[2021-08-21] MEDS: TRAMADOL HCL 50 MG TAB PO PRN ×2 (08:18→13:36)
[2021-08-21] MEDS: GLIMEPIRIDE 2 MG TABLET PO SCH (08:18)
[2021-08-21] MEDS: CRANBERRY FRUIT EXTRACT 400 MG CAP PO SCH (08:18)
[2021-08-21] MEDS: PIOGLITAZONE 15 MG TAB PO SCH (08:19)
[2021-08-21] MEDS: GABAPENTIN 300 MG CAP PO SCH ×2 (08:19→13:36)
[2021-08-21] MEDS: APIXABAN 2.5 MG TABLET PO SCH (08:19)
[2021-08-21] MEDS: DULOXETINE 20 MG CAP PO SCH (08:19)
[2021-08-21] MEDS: ALOGLIPTIN BENZOATE 12.5 MG TABLET PO SCH (09:17)
[2021-08-21] MEDS: atenoloL 25 MG TAB PO SCH (09:18)
--- NOTE | 2021-08-21 19:57 | R.PN ---
PROGRESS NOTES ENCOUNTER DATE AND TIME: 08/21/2021 19:52 (CDT) NAME ROXY BOBBY DATE OF : 1950 DATE OF ADMISSION: 08/04/2021 15:34 (CDT) STROKECHIEF COMPLAINT: Stroke with left face, arm and leg weakness SUBJECTIVE: Pt denied any depression. Pt denied any Shortness of Breath. CBC with differential is normal except Hgb is mildly low at 11.8. Glucose 141 to 206 prealbumin 14.8, UA is negative. Ambulated 250' with standby assistance using a rolling walker. Self-propelled wheelchair 150' with st andby assistance. Did oral motor exercises with speech therapy. Aspirin 81 mg daily and Plavix 75 mg daily. To be discharged home today. VITAL SIGNS Temperature: 97.1 F SBP/DBP: 137/60 Pulse: 69 Resp: 16 MEDICATION ALLERGIES: No Known Drug Allergies (NKDA) ENVIRONMENTAL ALLERGIES: - Substance Allergies None Known - Other Allergies None Known NURSING: - Shower allowing shower - Bladder care per protocol - Skin care per protocol PRECAUTIONS: - Weight Bearing Precaution WBAT left LE - Fall Precaution SAFTY AND FALL ACTIVITIES OOB only with supervision THERAPIES: - Dietary and Nutrition Adequate Nutrition. Nutritional Education. Nutritional Supplements. Evaluate and Treat. - Occupational Therapy Cognitive Retraining. Patient needs Occupational Therapy for a daily minimum of 1.5 hours at least 5 out of 7 days, to improve Activities of Daily Living, including: Eating, Grooming, Bathing, Dressing, Toileting, Toilet Transfers, Community Reintegration, Higher functional activities, Adaptive Equipme nt, Splinting, Household Tasks, and Other activities as determined. Visual Perceptual Training. Evalu ate and Treat. Transfer Training. Safety Awareness. Patient/Family Education. ADL Training. Household Tasks. Eating. - Speech Therapy Cognitive Training. Expressive Language Skills. Memory Strategies. Patient needs Speech Therapy for a daily minimum of 1.5 hours at least 5 out of 7 days, to improve: Swallowing, Cognition, Language Ski lls, and Compensatory Strategies. Receptive Language Skills. Speech Intelligibility Training. Evaluat e and Treat. - Physical Therapy Patient needs Physical Therapy for a daily minimum of 1.5 hours at least 5 out of 7 days, to improve: Mobility, Strengthening, Transfers, Stretching, ROM, Endurance, Ability to manage stairs, Gait, and Balance. Mobility Training. Safety Awareness. Gait Training. Balance Training. Transfer Training. Sarah luate and Treat. Patient/Family Education. LE Strengthening. PHYSICAL EXAM - Gen Alert and awake Lying in bed No apparent distress Oriented to: person, time, and place - Skin No breakdown Mild left facial numbness and weakness. - Eyes No abnormalities - ENMT No abnormalities - Neck No abnormalities - CVS RRR - Chest No abnormalities - Abd Soft - GI Soft Deferred - No abnormalities - Ext No significant edema - MSK 3+ to 4+/5 weakness in left upper and lower extremity - Neuro 3+ to 4+/5 weakness in left upper and lower extremity - Psych No abnormalities ASSESSMENT: Pt. is a 70 yo Right-handed female.On 07/28/2021 Pt. presented to [facility] with sudden onset of left-side weakness.On 07/28/2021 she was admitted to [facility] with diagnosis STROKE.Her impairment category is Stroke 01 - Left Body (Right Brain) (01.1).Pre-morbidly, Pt. was independent/mod-I in Locomotion, Safety Awareness, Social Cognition, and Balance; and she had good Sp hincter Control, Self-Care, Communication, and Endurance.Currently, she has deficits of Locomotion, S afety Awareness, Balance, Social Cognition, Transfers Control, Self-Care, Sphincter Control, Communic ation, and Endurance.Pt. is now referred to [facility] for acute in-patient re habilitation in order to maximize patient's functional independence in activities of daily living, st rength, ROM, and mobility.- Rehab Goal Patient has realistic goal of being discharged at assistance level 7-Ind to reside at Home with Fami ly/Relatives. MDM/PLAN: - Physical Therapy Gait dysfunction - to improve, our physical therapists will perform initial evaluation of pt's statu s upon admission and devise an individualized program for Gait Training, and Wheel Chair mobility Inability to transfer - to improve, our physical therapists will perform initial evaluation of pt's status upon admission and devise an individualized program for Bed mobility Need for home safety evaluation - to improve, our physical therapists will perform initial evaluatio n of pt's status upon admission and devise an individualized program for Home Evaluation Need in caregiver upon discharge - to improve, our physical therapists will perform initial evaluati on of pt's status upon admission and devise an individualized program for Caregiver Training New precaution - to improve, our physical therapists will perform initial evaluation of pt's status upon admission and devise an individualized program for Patient precaution education Edema - to improve, our physical therapists will perform initial evaluation of pt's status upon admi ssion and devise an individualized program for Elevation Training, and Lymphedema Therapy Poor balance - to improve, our physical therapists will perform initial evaluation of pt's status up on admission and devise an individualized program for Balance Training Poor endurance - to improve, our physical therapists will perform initial evaluation of pt's status upon admission and devise an individualized program for Endurance Training Weakness - to improve, our physical therapists will perform initial evaluation of pt's status upon a dmission and devise an individualized program for Aquatic Therapy, Neuromuscular Reeducation, and Str engthening Achieving independence - to improve, our physical therapists will perform initial evaluation of pt's status upon admission and devise an individualized program for Community Reintegration Activities - Occupational Therapy ADL deficits - to improve, our occupation therapists will perform initial evaluation of pt's status upon admission and devise an individualized program for Bathing, Bed mobility, Community Reintegratio n, Cooking, Dressing, Eating, Fine Motor Skills, Grooming, Homemaking, Kitchen Mobility, Laundry, Pat ient Education, Safety Awareness, Splinting - Positioning, Transfers(Toilet, Tub, Shower), and Wheel Chair Management Cognitive deficits - to improve, our occupation therapists will perform initial evaluation of pt's s tatus upon admission and devise an individualized program for Cognition - orientation Need for acute care surgeon - to improve, our occupation therapists will perform initial evaluation of pt's status upon admission and devise an individualized program for Caregiver Training Weakness - to improve, our occupation therapists will perform initial evaluation of pt's status upon admission and devise an individualized program for Aquatic Therapy, Balance, Endurance, UE ROM, and UE strengthening - Other See attached MAR (Medication Administration Record) - Diet Type Continue Regular - Diet - Liquid Texture Continue Regular - Tube Feed Continue N/A - Bladder care per protocol - Weight Bearing Precaution WBAT left LE - Fall Precaution Bed alarm SAFTY AND FALL TABS alarm Wheel chair alarm - Skin care per protocol - Diet - Solid Texture Continue Regular - Shower allowing shower for Dementia, TBI, Stroke, or others FUNCTIONAL STATUS: UPDATED AT WEEKLY TEAM CONFERENCE - Bladder Same accident frequency: 7-Ind - No accidents in the past 7 days - Bowel Same accident frequency: 7-Ind - No accidents in the past 7 days - Walking Same score based on distance walked: 0(N/A) Same score based on distance walked: 3(>=150ft) - Wheelchair Same score based on distance traveled: 0(N/A) FUNCTIONAL STATUS: - Self-Care A. Eating sup B. Grooming sup C. Bathing Chandler D. Dressing - Upper Chandler E. Dressing - Lower modA F. Toileting Chandler - Sphincter Control G. Bladder control Valdez H. Bowel control Valdez - Transfers Control I. Bed/Chair/Wheelchair Chandler J. Toilet Chandler K. Tub/Shower modA - Locomotion L. Walk/Wheelchair (B) Chandler M. Stairs Chandler - Communication N. Comprehension (B) Chandler O. Expression (B) Chandler - Social Cognition P. Social Interaction Valdez Q. Problem Solving sup R. Memory sup - Endurance Fair - Balance Fair - Safety Awareness Fair QI SCORES: - Self-Care A. Eating 03-Partial/moderate assistance B. Oral hygiene 03-Partial/moderate assistance C. Toileting hygiene 03-Partial/moderate assistance E. Shower/bathe self 02-Substantial/maximal assistance F. Upper body dressing 02-Substantial/maximal assistance G. Lower body dressing 02-Substantial/maximal assistance H. Putting on/taking off footwear 88-Not attempted due to medical condition or safety concerns - Mobility A. Roll left and right 03-Partial/moderate assistance B. Sit to lying 03-Partial/moderate assistance C. Lying to sitting on side of bed 03-Partial/moderate assistance D. Sit to stand 03-Partial/moderate assistance E. Chair/[id number] transfer 03-Partial/moderate assistance F. Toilet transfer 03-Partial/moderate assistance G. Car transfer 88-Not attempted due to medical condition or safety concerns I. Walk 10 feet 03-Partial/moderate assistance J. Walk 50 feet with two turns 03-Partial/moderate assistance K. Walk 150 feet 03-Partial/moderate assistance L. Walking 10 feet on uneven surfaces 88-Not attempted due to medical condition or safety concerns M. 1 step (curb) 88-Not attempted due to medical condition or safety concerns N. 4 steps 88-Not attempted due to medical condition or safety concerns O. 12 steps 88-Not attempted due to medical condition or safety concerns P. Picking up object 88-Not attempted due to medical condition or safety concerns R. Wheel 50 feet with two turns 88-Not attempted due to medical condition or safety concerns S. Wheel 150 feet 88-Not attempted due to medical condition or safety concerns - Bladder and Bowel Bladder continence Bowel continence - Endurance Fair - Balance Fair - Safety Awareness Fair CURRENT COMM[facility]. DEFICITS: Self-Care, Mobility, Endurance, Balance, and Safety Awareness SIGNATURE PANEL: (CDT)
--- NOTE | 2021-08-29 12:13 | R.DS ---
DISCHARGE SUMMARY FACILITY [facility] MR# [id number] NAME ROXY BOBBY ADDRESS [address] [place] [address] PHONE DATE OF 1950 AGE 70 SSN# [id number] GENDER Female MARITAL STATUS ENCOUNTER PHYSICIAN Dr. Bryant Guerrero M.D. REFERRING DOCTOR REFERRING FACILITY [facility] DISCHARGE DIAGNOSIS: - Stroke 01 - Left Body (Right Brain) (01.1) STROKE. DATE OF ADMISSION 08/04/2021 15:34 (CDT) MEDICATION ALLERGIES: No Known Drug Allergies (NKDA) ENVIRONMENTAL ALLERGIES: - Substance Allergies None Known - Other Allergies None Known DISCHARGE MEDICATIONS: Other- ContinueSee attached MAR (Medication Administration Record). NURSING: - Shower allowing shower - Bladder care per protocol - Skin care per protocol PRECAUTIONS: - Weight Bearing Precaution WBAT left LE - Fall Precaution SAFTY AND FALL ACTIVITIES OOB only with supervision THERAPIES: - Dietary and Nutrition Adequate Nutrition Nutritional Education Nutritional Supplements Evaluate and Treat - Occupational Therapy Cognitive Retraining Patient needs Occupational Therapy for a daily minimum of 1.5 hours at least 5 out of 7 days, to impr ove Activities of Daily Living, including: Eating, Grooming, Bathing, Dressing, Toileting, Toilet Tra nsfers, Community Reintegration, Higher functional activities, Adaptive Equipment, Splinting, Househo ld Tasks, and Other activities as determined Visual Perceptual Training Evaluate and Treat Transfer Training Safety Awareness Patient/Family Education ADL Training Household Tasks Eating - Speech Therapy Cognitive Training Expressive Language Skills Memory Strategies Patient needs Speech Therapy for a daily minimum of 1.5 hours at least 5 out of 7 days, to improve: S wallowing, Cognition, Language Skills, and Compensatory Strategies Receptive Language Skills Speech Intelligibility Training Evaluate and Treat - Physical Therapy Patient needs Physical Therapy for a daily minimum of 1.5 hours at least 5 out of 7 days, to improve: Mobility, Strengthening, Transfers, Stretching, ROM, Endurance, Ability to manage stairs, Gait, and Balance Mobility Training Safety Awareness Gait Training Balance Training Transfer Training Evaluate and Treat Patient/Family Education LE Strengthening HISTORY OF PRESENT ILLNESS: Pt. is a 70 yo Right-handed female.On 07/28/2021 Pt. presented to [facility] with sudden onset of left-side weakness.On 07/28/2021 she was admitted to [facility] with diagnosis STROKE.Her impairment category is Stroke 01 - Left Body (Right Brain) (01.1).Pre-morbidly, Pt. was independent/mod-I in Locomotion, Safety Awareness, Social Cognition, and Balance; and she had good Sp hincter Control, Self-Care, Communication, and Endurance.Currently, she has deficits of Locomotion, S afety Awareness, Balance, Social Cognition, Transfers Control, Self-Care, Sphincter Control, Communic ation, and Endurance.Pt. is now referred to [facility] for acute in-patient re habilitation in order to maximize patient's functional independence in activities of daily living, st rength, ROM, and mobility.- Rehab Goal Patient has realistic goal of being discharged at assistance level 7-Ind to reside at Home with Fami ly/Relatives. DIET - LIQUID TEXTURE: On 07/30/2021 Pt was upgraded to Regular Diet - Liquid Texture. DIET - SOLID TEXTURE: On 07/30/2021 Pt was upgraded to Regular Diet - Solid Texture. DIET TYPE: On 07/30/2021 Pt was upgraded to Regular Diet Type. FALL PRECAUTION: On 07/30/2021 the following precautions were added for the patient: Fall Precaution - SAFTY AND FALL. On 08/05/2021 the following precautions were added for the patient: Fall Precaution - Bed alarm, Fal l Precaution - TABS alarm, Fall Precaution - Wheel chair alarm, and Fall Precaution - SAFTY AND FA LL. On 08/06/2021 the following precautions were removed for the patient: Fall Precaution - Bed alarm, F all Precaution - TABS alarm, Fall Precaution - Wheel chair alarm, and Fall Precaution - SAFTY AND FALL. The following precautions were added for the patient: Fall Precaution - Bed alarm, Fall Precaution - TABS alarm, and Fall Precaution - Wheel chair alarm. On 08/07/2021 the following precautions were removed for the patient: Fall Precaution - Bed alarm, Fa ll Precaution - TABS alarm, and Fall Precaution - Wheel chair alarm. The following precautions were added for the patient: Fall Precaution - Bed alarm, Fall Precaution - SAFTY AND FALL, Fall Precaution - TABS alarm, and Fall Precaution - Wheel chair alarm. The following precautions were removed for the patient: Fall Precaution - SAFTY AND FALL, Fall Precau tion - Bed alarm, Fall Precaution - SAFTY AND FALL, Fall Precaution - TABS alarm, and Fall Precaut ion - Wheel chair alarm. On 07/30/2021 the following precautions were added for the patient: Weight Bearing Precaution - WBAT left LE. On 08/05/2021 the following precautions were added for the patient: Weight Bearing Precaution - WBAT left LE. On 08/06/2021 the following precautions were removed for the patient: Weight Bearing Precaution - WB AT left LE. On 08/07/2021 the following precautions were added for the patient: Weight Bearing Precaution - WBAT left LE. TUBE FEED: On 07/30/2021 Pt was changed to N/A Tube Feed. WEIGHT BEARING PRECAUTION: DISCHARGE PHYSICAL EXAM - Gen Alert and awake Lying in bed No apparent distress Oriented to: person, time, and place - Skin No breakdown Mild left facial numbness and weakness. - Eyes No abnormalities - ENMT No abnormalities - Neck No abnormalities - CVS RRR - Chest No abnormalities - Abd Soft - GI Soft Deferred - No abnormalities - Ext No significant edema - MSK 3+ to 4+/5 weakness in left upper and lower extremity - Neuro 3+ to 4+/5 weakness in left upper and lower extremity - Psych No abnormalities FUNCTIONAL STATUS: - Self-Care A. Eating 6-Valdez B. Grooming 5-sup C. Bathing 5-sup D. Dressing - Upper 5-sup E. Dressing - Lower 5-sup F. Toileting 5-sup - Sphincter Control G. Bladder control 6-Valdez H. Bowel control 6-Valdez - Transfers Control I. Bed/Chair/Wheelchair 5-sup J. Toilet 5-sup K. Tub/Shower 5-sup - Locomotion L. Walk/Wheelchair (B) 5-sup M. Stairs 4-Chandler - Communication N. Comprehension (B) 5-sup O. Expression (B) 5-sup - Social Cognition P. Social Interaction 6-Valdez Q. Problem Solving 5-sup R. Memory 5-sup - Endurance Good - Balance Good - Safety Awareness Good QI SCORES: - Self-Care A. Eating 03-Partial/moderate assistance B. Oral hygiene 03-Partial/moderate assistance C. Toileting hygiene 03-Partial/moderate assistance E. Shower/bathe self 02-Substantial/maximal assistance F. Upper body dressing 02-Substantial/maximal assistance G. Lower body dressing 02-Substantial/maximal assistance H. Putting on/taking off footwear 88-Not attempted due to medical condition or safety concerns - Mobility A. Roll left and right 03-Partial/moderate assistance B. Sit to lying 03-Partial/moderate assistance C. Lying to sitting on side of bed 03-Partial/moderate assistance D. Sit to stand 03-Partial/moderate assistance E. Chair/[id number] transfer 03-Partial/moderate assistance F. Toilet transfer 03-Partial/moderate assistance G. Car transfer 88-Not attempted due to medical condition or safety concerns I. Walk 10 feet 03-Partial/moderate assistance J. Walk 50 feet with two turns 03-Partial/moderate assistance K. Walk 150 feet 03-Partial/moderate assistance L. Walking 10 feet on uneven surfaces 88-Not attempted due to medical condition or safety concerns M. 1 step (curb) 88-Not attempted due to medical condition or safety concerns N. 4 steps 88-Not attempted due to medical condition or safety concerns O. 12 steps 88-Not attempted due to medical condition or safety concerns P. Picking up object 88-Not attempted due to medical condition or safety concerns R. Wheel 50 feet with two turns 88-Not attempted due to medical condition or safety concerns S. Wheel 150 feet 88-Not attempted due to medical condition or safety concerns - Bladder and Bowel Bladder continence Bowel continence - Endurance Fair - Balance Fair - Safety Awareness Fair DISCHARGE INSTRUCTIONS: - N/A Aspirin 81 mg and Plavix 75 mg daily. DISCHARGE PLAN, FOLLOW UP CARE PROVISIONS: - Estimated Length of Stay (days) 17. - Consensus on plan Discharge plan has been discussed with primary caregiver. Patient/Family is in agreement with the danitza n. Primary caregiver is in agreement with the plan. - Patient/Family Goals Return home independently. - Planned Living Setting Upon Discharge Home, to live with Family/Relatives. Transitional Living. SIGNATURE PANEL: (CDT)
== END 2021-08-21 15:00 | disposition home health service (06) | DRG 57 ==
LOC: 5TH 08-04 15:34
PROVIDERS: ADMIT Psychiatry & Neurology Neurology with Special Qualifications in Child Neurology; ATTEND Psychiatry & Neurology Neurology with Special Qualifications in Child Neurology
DX: I69.354 Hemiplegia and hemiparesis following cerebral infarction affecting left non-dominant side (principal); N39.0 Urinary tract infection, site not specified; I69.392 Facial weakness following cerebral infarction; E11.9 Type 2 diabetes mellitus without complications; E03.9 Hypothyroidism, unspecified; I10 Essential (primary) hypertension; Z20.822 Contact with and (suspected) exposure to COVID-19; B96.89 Other specified bacterial agents as the cause of diseases classified elsewhere
CPT/HCPCS: 36415; 70450; 70553; 80048; 81001; 82040; 82947; 83735; 84134; 85025; 87077; 87086; 87088; 87186; 92507; 92523; 97110; 97112; 97116; 97129; 97130; 97161; 97530; 97542; A9577; J1650; J1815; J2001; U0003

== ENCOUNTER 2024-08-02 08:22 | Emergency (ER) | payer OTHER ==
[2024-08-02] MEDS ORDERED: TDAP (DIPHTH,PERTUSS(ACELL),TET VAC) 0.5 ML VIAL IMVAC ONE (09:37)
[2024-08-02] MEDS ORDERED: LIDOCAINE 1% MPF 5 ML VIAL ONE (09:37)
--- NOTE | 2024-08-02 09:55 | RAD REPORT ---
EXAM: CT brain without contrast HISTORY: fall, head/neck pain COMPARISON: 08/04/2021 TECHNIQUE: Multiple contiguous axial images were obtained and a CT of the brain without contrast. Sag ittal and coronal reformats were performed. FINDINGS: No evidence of hydrocephalus, intracranial hemorrhage, or extra-axial fluid collection. Left inferior cerebellar encephalomalacia is stable. Left opercular subcortical white matter hypoatte nuation stable, may relate to sequelae of chronic ischemia as well. Mild brain atrophy with mild periventricular and deep white matter chronic microvascular ischemic changes present. The calvarium is intact. Right supraorbital soft tissue swelling, hematoma, and small laceration. The visualized paranasal sinuses and mastoid air cells are essentially clear. IMPRESSION: No evidence of acute intracranial abnormality. Right supraorbital soft tissue swelling, hematoma, and small laceration. Stable chronic findings as above. EXAM: CT of the cervical spine without contrast HISTORY: fall, head/neck pain COMPARISON: None TECHNIQUE: Multiple contiguous axial images were obtained in a CT of the cervical spine without contr ast. Sagittal and coronal reformats were performed. FINDINGS: The vertebral bodies demonstrate normal height and alignment. No evidence of acute fracture or subluxation.. Moderate degenerative changes at C5-C6 contributing to left moderate neural foraminal narrowing. No prevertebral soft tissue swelling is seen. The posterior facets are well aligned. Normal alignment of the skull base with the cervical spine is seen. The lung apices are unremarkable. IMPRESSION: No evidence of acute osseous abnormality of the cervical spine.
--- NOTE | 2024-08-02 10:14 | RAD REPORT ---
EXAMINATION: XR RIGHT SHOUDLER CLINICAL INDICATION: Female, 73 years old. PAIN RIGHT TECHNIQUE:Two view radiograph of the right shoulder were obtained. COMPARISON: No prior exam. FINDINGS: Comminuted fracture involving the distal right clavicle. Mild caudal acromial offset relati ve to the distal clavicle by less than one shaft width. Soft tissue swelling about the AC joint. Glenohumeral joint relationship is well maintained. IMPRESSION: Comminuted fracture involving the distal right clavicle. Mild caudal acromial offset relative to the distal clavicle by less than one shaft width.
--- NOTE | 2024-08-02 10:17 | RAD REPORT ---
EXAM: XR Hand Left 3 View HISTORY: [facility] MAIN PAIN Bed Name: 15 COMPARISON: None TECHNIQUE: 3 radiographic views of the LEFT hand submitted. FINDINGS: No evidence of acute fracture or dislocation. Joint alignment is maintained. No soft tissu e swelling is seen.. Mild intercarpal degenerative changes. IMPRESSION: No significant bone or joint abnormality.
--- NOTE | 2024-08-02 10:44 | EDPHYS ---
Physician Documentation [facility] Name: Stefanie Schofield Age: 73 yrs Sex: Female : 1950 Arrival Date: 08/02/2024 Time: 08:22 Bed 15 Private MD: ED Physician Michael Medina HPI: 08/02 08:49 This 73 yrs old Female presents to ER via Wheelchair with complaints of Fall Injury. rn 08:49 Details of fall: The patient fell from an upright position. Onset: The symptoms/episode rn began/occurred just prior to arrival. Associated injuries: The patient sustained injury to the head. Severity of symptoms: At their worst the symptoms were mild, in the emergency department the symptoms are unchanged. The patient has not experienced similar symptoms in the past. Fall from standing, was leaning forward and fell, hit head, no LOC, reports mild headache and left hand pain. + right shoulder pain. No back pain or chest pain/rib pain. No abd or pelvic pain. No lower ext injury or pain . Historical: - Allergies: 08:34 Codeine; bp - PMHx: 08:34 Back pain; Diabetes - NIDDM; Hypertension; CVA; Feb 2019; bp - Immunization history:: Adult Immunizations up to date. - Infectious Disease History:: Denies. - Social history:: Smoking status: Patient denies any tobacco usage or history of. - Family history:: not pertinent. - Hospitalizations: : No recent hospitalization is reported. ROS: 08:49 Constitutional: Negative for fever, chills, and weight loss, Eyes: Negative for injury, rn pain, redness, and discharge, ENT: Negative for injury, pain, and discharge, Neck: Negative for injury, pain, and swelling, Cardiovascular: Negative for chest pain, palpitations, and edema, Respiratory: Negative for shortness of breath, cough, wheezing, and pleuritic chest pain, Abdomen/GI: Negative for abdominal pain, nausea, vomiting, diarrhea, and constipation, Back: Negative for injury and pain, MS/Extremity: + right shoulder pain and injury. + left hand pain. Skin: Negative for injury, rash, and discoloration, Neuro: + headache Exam: 08:49 Constitutional: This is a well developed, well nourished patient who is awake, alert, rn and in no acute distress. Head/Face: Normocephalic, + 2.5 cm superficial laceration right brow, slow venous bleeding. Mild hematoma right brow. Neck: No midline cervical tenderness Cardiovascular: Regular rate and rhythm. No pulse deficits. Respiratory: No increased work of breathing, no retractions or nasal flaring. Abdomen/GI: Soft, non-tender Back: No spinal tenderness. No costovertebral tenderness. Full range of motion. MS/ Extremity: Pulses equal, no cyanosis. Neuro: Awake and alert, GCS 15, oriented to person, place, time, and situation. Cranial nerves II-XII grossly intact. Motor strength 5/5 in all extremities. Sensory grossly intact. Vital Signs: 08:33 BP 129 / 90; Pulse 72; Resp 18; Temp 98; Pulse Ox 100% ; bp 10:51 BP 129 / 45; Pulse 55; Resp 16; Pulse Ox 98% ; bp Laceration: 10:38 Wound Repair of 2.5cm ( 1.0in ) subcutaneous laceration to right brow. Distal rn neuro/vascular/tendon intact. Anesthesia: Wound infiltrated with 2 mls of 1% lidocaine. Wound prep: Extensive cleansing by me, Wound irrigation by me, Wound explored extensively. Skin closed with 4 4-0 Prolene using interrupted sutures and sterile technique. Dressed with steri-strips. Patient tolerated well. MDM: 08:25 Medical Screening Exam initiated rn 10:38 Differential diagnosis: closed head injury, contusion, fracture, laceration, sprain, rn strain. Data reviewed: vital signs, nurses notes, radiologic studies, CT scan, plain films, and as a result, I will discharge patient. Counseling: I had a detailed discussion with the patient and/or guardian regarding the historical points, exam findings, and any diagnostic results supporting the discharge/admit diagnosis, radiology results, the need for outpatient follow up, to return to the emergency department if symptoms worsen or persist or if there are any questions or concerns that arise at home. 10:39 ED course: Pt with right clavicular fracture, will dc home with shoulder immobilizer. rn CT head/cspine neg for acute fracture. Laceration sutured and tolerated well. Will f/u with ortho for clavicle. . 08/02 08:35 Order name: CT Head C Spine; Complete Time: 10:24 rn 08/02 08:35 Order name: XRAY Shoulder RIGHT 2 view; Complete Time: 10:24 rn 08/02 08:35 Order name: XRAY Hand LEFT 3 View; Complete Time: 10:24 rn 08/02 09:43 Order name: Dressing - Wound; Complete Time: 09:43 bp 08/02 09:43 Order name: Gloves, Sterile; Complete Time: 09:43 bp 08/02 09:43 Order name: Setup Suture Tray; Complete Time: 09:43 bp 08/02 10:39 Order name: Shoulder Immobilizer; Complete Time: 10:50 rn Administered Medications: 09:43 Drug: Lidocaine Infiltration (1 %) 5 mg 5 ml Infiltration once; to bedside Volume: 5 bp ml; Route: Infiltration; :43 Drug: Boostrix Tdap IM 0.5 ml IM once; as a single dose Route: IM; Site: right gluteus; bp 10:50 Follow up: Response: No adverse reaction bp Disposition Summary: 08/02/24 10:44 Discharge Ordered Notes: Location: Home rn Problem: new rn Symptoms: have improved rn Condition: Stable rn Diagnosis - Fracture of shaft of clavicle - Right rn - Laceration without foreign body of unspecified part of head rn Followup: rn - With: Ranjan Davey MD - When: As needed - Reason: Recheck today's complaints, Re-evaluation by your physician Followup: rn - With: Emergency Department - When: 10 - 14 days - Reason: Staple/Suture removal Discharge Instructions: - Discharge Summary Sheet rn - Clavicle Fracture rn - Facial Laceration rn - How to Use a Shoulder Immobilizer rn Forms: - Medication Reconciliation Form rn - Antibiotic all around patternmaker - Prescription Opioid Use rn - Patient Portal Instructions rn - Leadership Thank You Letter rn Signatures: Dispatcher [employer] EDMS Michael Medina MD MD rn Peltier, Brian, RN RN bp Corrections: (The following items were deleted from the chart) 08:35 08:35 Shoulder Right 2 View+RAD.RAD.BRZ ordered. EDMS EDMS 08:36 08:35 Hand Left 3 View+RAD.RAD.BRZ ordered. EDMS EDMS
--- NOTE | 2024-08-02 10:44 | ER ---
Nurse's Notes [facility] Name: Stefanie Schofield Age: 73 yrs Sex: Female : 1950 Arrival Date: 08/02/2024 Time: 08:22 Bed 15 Private MD: Diagnosis: Fracture of shaft of clavicle-Right;Laceration without foreign body of unspecified part of head Presentation: 08/02 08:33 Chief complaint: Patient states: MECHANICAL FALL FROM STANDING, R BROW LAC. Coronavirus bp screen: At this time, the client does not indicate any symptoms associated with coronavirus-19. Ebola Screen: No symptoms or risks identified at this time. Initial Sepsis Screen: Does the patient meet any 2 criteria? No. Patient's initial sepsis screen is negative. Does the patient have a suspected source of infection? No. Patient's initial sepsis screen is negative. Risk Assessment: Do you want to hurt yourself or someone else? Patient reports no desire to harm self or others. Onset of symptoms was August 02, 2024 at 08:00. 08:33 Method Of Arrival: Wheelchair bp 08:33 Acuity: ALDO 3 bp Triage Assessment: 08:34 General: Appears in no apparent distress. obese, Behavior is calm, cooperative, bp appropriate for age. Pain: Complains of pain in head. EENT: No deficits noted. Neuro: Level of Consciousness is awake, alert, obeys commands, Oriented to Appropriate for age. Cardiovascular: No deficits noted. Respiratory: No deficits noted. GI: No signs and/or symptoms were reported involving the gastrointestinal system. : No signs and/or symptoms were reported regarding the genitourinary system. Derm: No deficits noted. Musculoskeletal: No deficits noted. Injury Description: Laceration sustained to head. Historical: - Allergies: 08:34 Codeine; bp - PMHx: 08:34 Back pain; Diabetes - NIDDM; Hypertension; CVA; Feb 2019; bp - Immunization history:: Adult Immunizations up to date. - Infectious Disease History:: Denies. - Social history:: Smoking status: Patient denies any tobacco usage or history of. - Family history:: not pertinent. - Hospitalizations: : No recent hospitalization is reported. Screenin:35 [facility] ED Fall Risk Assessment (Adult) History of falling in the last 3 months, bp including since admission Yes- single mechanical fall (1 pt) Confusion or Disorientation No (0 pts) Intoxicated or Sedated No (0 pts) Impaired Gait No (0 pts) Mobility Assist Device Used Yes (1 pt) Altered Elimination No (0 pt) Score/Fall Risk Level 0 - 2 = Low Risk Oriented to surroundings. Abuse screen: Denies threats or abuse. Denies injuries from another. Nutritional screening: No deficits noted. Tuberculosis screening: No symptoms or risk factors identified. Assessment: 08:35 General: Appears in no apparent distress. uncomfortable, Behavior is cooperative, bp appropriate for age, anxious. 08:40 Reassessment: Pt to CT now VIA stretcher. ss 08:56 Reassessment: Pt back from CT at this time. ss Vital Signs: 08:33 BP 129 / 90; Pulse 72; Resp 18; Temp 98; Pulse Ox 100% ; bp 10:51 BP 129 / 45; Pulse 55; Resp 16; Pulse Ox 98% ; bp ED Course: 08:23 Patient arrived in ED. im 08:25 Michael Medina MD is Attending Physician. rn 08:32 Meño Hall, SHAWN is Primary Nurse. bp 08:34 Triage completed. bp 08:34 Arm band placed on. bp 08:35 Patient has correct armband on for positive identification. bp 08:46 CT Head C Spine In Process Unspecified. EDMS 09:01 XRAY Shoulder RIGHT 2 view In Process Unspecified. EDMS 09:02 XRAY Hand LEFT 3 View In Process Unspecified. EDMS 10:42 Ranjan Davey MD is Referral Physician. rn 10:51 Assist provider with laceration repair on head that was 2.5 cm. or less using sutures. bp Set up tray. Performed by Michael Medina MD Dressed with steri-strips Patient tolerated well. Patient did not have IV access during this emergency room visit. Sling applied to right arm. Administered Medications: 09:43 Drug: Lidocaine Infiltration (1 %) 5 mg 5 ml Infiltration once; to bedside Volume: 5 bp ml; Route: Infiltration; 09:43 Drug: Boostrix Tdap IM 0.5 ml IM once; as a single dose Route: IM; Site: right gluteus; bp 10:50 Follow up: Response: No adverse reaction bp Medication: 08:35 VIS not applicable for this client. bp Outcome: 10:44 Discharge ordered by . rn 10:55 Discharged to home via wheelchair, with family, bp 10:55 Condition: stable 10:55 Discharge instructions given to patient, Instructed on discharge instructions, follow up and referral plans. Demonstrated understanding of instructions, follow-up care, 10:56 Patient left the ED. bp Signatures: Dispatcher [employer] EDMS Michael Medina MD MD rn Blanchard, Shelby, RN RN ss Meño Hall RN RN Janelle Michaels
[2024-08-02 11:00] VITALS: TEMP 98
[2024-08-02 11:01] VITALS: BP 129/45; O2SAT 98
== END 2024-08-02 10:56 | disposition home or self-care (01) ==
LOC: ER 08:22
DX: S42.021A Displaced fracture of shaft of right clavicle, initial encounter for closed fracture (principal); S01.81XA Laceration without foreign body of other part of head, initial encounter; W18.30XA Fall on same level, unspecified, initial encounter; Z23 Encounter for immunization
CPT/HCPCS: 70450; 72125; 73130; 73030; 90715; 96372; 99284; 12051; J2003

== ENCOUNTER 2024-08-16 18:13 | Emergency (ER) | payer OTHER ==
--- NOTE | 2024-08-16 18:37 | EDPHYS ---
Physician Documentation [facility] Name: Stefanie Schofield Age: 73 yrs Sex: Female : 1950 Arrival Date: 08/16/2024 Time: 18:13 Bed Waiting Private MD: ED Physician Christiano Alex HPI: 08/16 18:35 This 73 yrs old Female presents to ER via Unassigned with complaints of Suture Removal. kb 18:35 Pt is a 73 year old female who presents for suture removal. States sutures were placed kb 14 days ago. Denies any problems or complaints. Historical: - Allergies: 18:36 Codeine; cm10 - PMHx: 18:36 Back pain; CVA; Feb 2019; Diabetes - NIDDM; Hypertension; cm10 ROS: 18:35 Constitutional: As per HPI kb Exam: 18:35 Constitutional: This is a well developed, well nourished patient who is awake, alert, kb and in no acute distress. Head/Face: Normocephalic, atraumatic. ENT: Moist Mucous membranes Respiratory: Respirations even and unlabored. No increased work of breathing. Talking in full sentences MS/ Extremity: Pulses equal, no cyanosis. Neurovascular intact. Full, normal range of motion. Neuro: Awake and alert, GCS 15, oriented to person, place, time, and situation. 18:35 Skin: Wound recheck: Suture laceration closure: the wound is healing well, the edges are well approximated, no evidence of dehiscence, no drainage, no erythema, no swelling, Procedures: 18:35 Suture/Staple removal: Removed 4 sutures, from lateral canthus of right eye, site kb appears well healed, Patient tolerated well. MDM: 18:23 Medical Screening Exam initiated kb 18:35 Data reviewed: vital signs, nurses notes. Historians other than the Patient: kb Daughter/Son: daughter. Counseling: I had a detailed discussion with the patient and/or guardian regarding the historical points, exam findings, and any diagnostic results supporting the discharge/admit diagnosis, the need for outpatient follow up, a family practitioner, to return to the emergency department if symptoms worsen or persist or if there are any questions or concerns that arise at home. Administered Medications: No medications were administered Disposition Summary: 08/16/24 18:37 Discharge Ordered Notes: Location: Home kb Condition: Stable kb Diagnosis - Encounter for removal of sutures kb Followup: kb - With: Emergency Department - When: As needed - Reason: Worsening of condition Followup: kb - With: Private Physician - When: 2 - 3 days - Reason: Recheck today's complaints, Continuance of care, Re-evaluation by your physician Discharge Instructions: - Discharge Summary Sheet kb - Suture Removal, Care After kb Forms: - Medication Reconciliation Form kb - Antibiotic Education kb - Prescription Opioid Use kb - Patient Portal Instructions kb - Leadership Thank You Letter kb Signatures: Karon Cook FNP-C FNP-Grecia Pugh, RN RN cm10
--- NOTE | 2024-08-16 18:37 | ER ---
Nurse's Notes [facility] Name: Stefanie Schofield Age: 73 yrs Sex: Female : 1950 Arrival Date: 08/16/2024 Time: 18:13 Bed Waiting Private MD: Diagnosis: Encounter for removal of sutures Presentation: 08/16 18:35 Chief complaint: here to have sutures removed that were placed on right eye 14 days cm10 ago. Pt had sutures removed by provider and discharged prior to coming to triage. Onset of symptoms was August 16, 2024. 18:35 Acuity: ALDO 5 cm10 18:36 Method Of Arrival: Wheelchair cm10 Triage Assessment: 18:37 General: Appears in no apparent distress. comfortable, Behavior is calm, cooperative. cm10 Historical: - Allergies: 18:36 Codeine; cm10 - PMHx: 18:36 Back pain; CVA; Feb 2019; Diabetes - NIDDM; Hypertension; cm10 ED Course: 18:22 Patient arrived in ED. cj3 18:23 Karon Cook F[facility]-C is [facility]. kb 18:23 Christiano Alex MD is Attending Physician. kb 18:36 Triage completed. cm10 18:36 Arm band placed on right wrist. cm10 18:37 Patient has correct armband on for positive identification. Provided Education on: cm10 follow-up . 18:37 No provider procedures requiring assistance completed. Patient did not have IV access cm10 during this emergency room visit. Administered Medications: No medications were administered Outcome: 18:36 Discharged to home cm10 18:36 Condition: good 18:36 Discharge instructions given to patient, Instructed on pt discharged by provider. 18:37 Discharge ordered by . kb 18:37 Patient left the ED. cm10 Signatures: Karon Cook FNP-C FNP-Ckb Martinez, Clarissa, RN RN cm10 Sean Deleon cj3
== END 2024-08-16 18:37 | disposition home or self-care (01) ==
LOC: ER 18:13
DX: Z48.02 Encounter for removal of sutures (principal)
CPT/HCPCS: 99282

== ENCOUNTER 2024-09-13 12:39 | Emergency (ER) | payer OTHER ==
--- NOTE | 2024-09-13 13:50 | RAD REPORT ---
EXAMINATION: Hip Left 2 View CLINICAL INDICATION: Female, 73 years old. fall COMPARISON: No prior exam. FINDINGS: No acute fracture. No malalignment/dislocation. Mild to moderate left acetabular degenerative changes. Other: n/a IMPRESSION: No acute osseous abnormality.
[2024-09-13 14:30] LABS: ALT/SGPT 17 U/L (13-56); AST/SGOT 16 U/L (15-37); Albumin 2.9 g/dL (3.4-5.0); Albumin/Globulin Ratio 0.7 (1.1-1.8); Alkaline Phosphatase 172 U/L (45-117); Anion Gap 10.3 mEq/L (5.0-15.0); BUN Blood Urea Nitrogen 32 mg/dL (7-18); Bicarbonate 20 mEq/L (21-32); Bilirubin Total 0.4 mg/dL (0.2-1.0); Globulin 4.4 g/dL (2.3-3.5); Glomerular Filtration Rate 25 ml/min (=/>90); Glucose Level 310 mg/dL (74-106); Magnesium 2.6 mg/dL (1.6-2.4); NT PRO-BNP 2214 pg/mL (<125); Potassium 4.3 mEq/L (3.5-5.1); Protein, Total 7.3 g/dL (6.4-8.2); Sodium Level 137 mEq/L (136-145); Troponin High Sensitivity 57.7 pg/mL (<58.9)
[2024-09-13 14:36] LABS: Bilirubin Direct < 0.2 mg/dL (0-0.2); Bilirubin Indirect, Calculated 0.2 mg/dL (0.2-0.8)
[2024-09-13 14:57] LABS: Absolute Basophils 0.1 K/uL (0-0.5); Absolute Eosinophils 0.2 K/uL (0-0.5); Absolute Neutrophil 8.2 K/uL (1.8-8.0); Basophils % 0.8 % (0-1.3); Hematocrit 34.2 % (36.0-45.0); Hemoglobin 11.6 g/dL (12.0-15.0); Lymphocytes % 9.8 % (15.3-44.8); MCV 88.3 fL (80-100); MPV 11.3 fL (7.6-11.3); Monocytes % 9.2 % (3.3-12.3); Neutrophils % 78.2 % (41.7-73.7); Nucleated Red Blood Cells % 0.2 % (0-0); Platelets 148 thou/uL (152-406); RBC Red Blood Cell Count 3.88 M/uL (3.86-4.86); Red Cell Distribution Width 14.5 % (12.1-15.2)
--- NOTE | 2024-09-13 15:57 | EDPHYS ---
Physician Documentation [facility] Name: Stefanie Schofield Age: 73 yrs Sex: Female : 1950 Arrival Date: 09/13/2024 Time: 12:39 Bed 15 Private MD: ED Physician Hong Stoddard HPI: 09/13 13:24 This 73 yrs old Female presents to ER via EMS with complaints of Fall Injury. sp3 13:24 73-year-old female with history of diabetes, prior CVA with left-sided weakness, sp3 presents from home with mechanical fall falling on her left side with mild pain to the left hip. Patient also states that she has been generally weak. She denies any other symptoms including headache, neck pain, chest pain, shortness breath, abdominal pain, vomiting, diarrhea, syncope, fever, URI symptoms, known sick contacts, travel history, or any other signs or symptoms on ROS at this time.. Historical: - Allergies: 12:50 Codeine; kj2 - Immunization history:: Adult Immunizations unknown. - Infectious Disease History:: Denies. - Social history:: Smoking status: unknown. ROS: 13:25 Constitutional: Negative for fever, chills, and weight loss, Eyes: Negative for injury, sp3 pain, redness, and discharge, Neck: Negative for injury, pain, and swelling, Cardiovascular: Negative for chest pain, palpitations, and edema, Respiratory: Negative for shortness of breath, cough, wheezing, and pleuritic chest pain, Abdomen/GI: Negative for abdominal pain, nausea, vomiting, diarrhea, and constipation, Back: Negative for injury and pain, Skin: Negative for injury, rash, and discoloration, Neuro: Negative for headache, weakness, numbness, tingling, and seizure, Psych: Negative for depression, anxiety, suicide ideation, homicidal ideation, and hallucinations, Endocrine: Negative for neck swelling, polydipsia, polyuria, polyphagia, and marked weight changes, Hematologic/Lymphatic: Negative for swollen nodes, abnormal bleeding, and unusual bruising, 13:25 All other systems are negative, Exam: 13:26 Constitutional: This is a well developed, well nourished patient who is awake, alert, sp3 and in no acute distress. Head/Face: Normocephalic, atraumatic. Eyes: Pupils equal round and reactive to light, extra-ocular motions intact. Lids and lashes normal. Conjunctiva and sclera are non-icteric and not injected. Cornea within normal limits. Periorbital areas with no swelling, redness, or edema. ENT: Nares patent. No nasal discharge, no septal abnormalities noted. External auditory canals are clear. Oropharynx with no redness, swelling, or masses, exudates, or evidence of obstruction, uvula midline. Mucous membranes moist. Neck: Trachea midline, no thyromegaly or masses palpated, and no cervical lymphadenopathy. Supple, full range of motion without nuchal rigidity, or vertebral point tenderness. No Meningismus. Chest/axilla: Normal chest wall appearance and motion. Nontender with no deformity. No lesions are appreciated. Cardiovascular: Regular rate and rhythm with a normal S1 and S2. No gallops, murmurs, or rubs. Normal PMI, no JVD. No pulse deficits. Respiratory: Lungs have equal breath sounds bilaterally, clear to auscultation and percussion. No rales, rhonchi or wheezes noted. No increased work of breathing, no retractions or nasal flaring. Abdomen/GI: Soft, non-tender, with normal bowel sounds. No distension or tympany. No guarding or rebound. No evidence of tenderness throughout. Back: No spinal tenderness. No costovertebral tenderness. Full range of motion. Skin: Warm, dry with normal turgor. Normal color with no rashes, no lesions, and no evidence of cellulitis. Neuro: Awake and alert, GCS 15, oriented to person, place, time, and situation. Cranial nerves II-XII grossly intact. Motor strength 5/5 in all extremities. Sensory grossly intact. Cerebellar exam normal. Normal gait. Psych: Awake, alert, with orientation to person, place and time. Behavior, mood, and affect are within normal limits. 13:26 Musculoskeletal/extremity: Left lateral hip pain to palpation. No left leg shortening or external rotation noted. Distal neurovascular exam is normal.. 15:34 ECG was reviewed by the Attending Physician. EKG demonstrates normal sinus rhythm at 65 sp3 bpm with normal intervals, QTc of 490, incomplete right bundle branch block and nonspecific diffuse ST/T changes without evidence of acute ischemia. Vital Signs: 12:47 Resp 20; Temp 97.9; Pulse Ox 100% ; Weight 90.72 kg; Height 5 ft. 7 in. ; Pain 7/10; kj2 12:53 BP 159 / 59; Pulse 60; Resp 20; Temp 97.9; Pulse Ox 100% ; kj2 14:00 BP 158 / 62; Pulse 60; Resp 20; Pulse Ox 100% on R/A; kj2 15:00 BP 143 / 109; Pulse 64; Resp 18; Pulse Ox 100% ; kj2 15:47 BP 160 / 108; Pulse 65; Resp 20; Pulse Ox 100% ; kj2 16:46 BP 162 / 77; Pulse 68; Resp 20; Temp 97.9; Pulse Ox 100% ; kj2 12:47 Body Mass Index 31.32 (90.72 kg, 170.18 cm) kj2 12:47 Pain Scale: Adult kj2 MDM: 12:48 Medical Screening Exam initiated kb 13:26 Data reviewed: vital signs, nurses notes, lab test result(s), EKG, radiologic studies. sp3 ED course: 73-year-old female with mechanical fall with injury to the left hip. Patient also states she has been feeling somewhat weak and we will obtain full workup including labs and EKG. Differential diagnosis includes mechanical fall, left hip contusion, dehydration, vertigo, electrolyte abnormality, metabolic imbalance, and to lesser degree ACS or other ongoing process. Workup as above. Disposition pending workup and patient course.. 15:47 ED course: Hip x-ray negative. Patient has CKD and this is not significantly different sp3 than baseline. I have counseled patient on hyperglycemia. No admission criteria exist. I have advised patient to use wheelchair as opposed to her walker which family endorses. We will safely discharge patient home at this time. Patient wants to go home at this time.. 09/13 12:51 Order name: Basic Metabolic Panel; Complete Time: 14:50 sp3 09/13 12:51 Order name: CBC with Diff; Complete Time: 15:07 sp3 09/13 12:51 Order name: LFT's; Complete Time: 14:50 sp3 09/13 12:51 Order name: Magnesium; Complete Time: 14:50 sp3 09/13 12:51 Order name: NT PRO-BNP; Complete Time: 14:50 sp3 09/13 12:51 Order name: Troponin HS; Complete Time: 14:50 sp3 09/13 12:51 Order name: Hip Left 2 View XRAY; Complete Time: 14:50 sp3 09/13 14:52 Order name: CXR XRAY 3 09/13 12:51 Order name: EKG; Complete Time: 12:51 sp3 09/13 12:51 Order name: Cardiac monitoring; Complete Time: 15:45 sp3 09/13 12:51 Order name: EKG - Nurse/Tech; Complete Time: 15:45 3 09/13 12:51 Order name: IV Saline Lock; Complete Time: 14:49 sp3 09/13 12:51 Order name: Labs collected and sent; Complete Time: 13:58 sp3 09/13 12:51 Order name: O2 Per Protocol; Complete Time: 13:58 3 09/13 12:51 Order name: O2 Sat Monitoring; Complete Time: 13:58 3 09/13 12:51 Order name: Recheck Vital Signs; Complete Time: 15:46 3 09/13 14:22 Order name: Labs - recollect needed: recollect lavender top; Complete Time: 14:49 bd Administered Medications: No medications were administered Disposition Summary: 09/13/24 15:57 Discharge Ordered Notes: Location: Home sp3 Condition: Stable sp3 Diagnosis - Mechanical fall, left hip contusion, hyperglycemia, known CKD sp3 Followup: sp3 - With: Private Physician - When: Upon discharge from the Emergency Department - Reason: Continuance of care Discharge Instructions: - Discharge Summary Sheet sp3 - Fall Prevention in the Home, Adult sp3 Forms: - Medication Reconciliation Form sp3 - Antibiotic Education sp3 - Prescription Opioid Use sp3 - Patient Portal Instructions sp3 - Leadership Thank You Letter sp3 Signatures: Dispatcher [employer] Karon Russell, ELHAM BRASHER-Mai Jimenez Setul, MD MD sp3 Kyra Matthews RN RN kj2
--- NOTE | 2024-09-13 15:57 | ER ---
Nurse's Notes [facility] Name: Stefanie Schofield Age: 73 yrs Sex: Female : 1950 Arrival Date: 09/13/2024 Time: 12:39 Bed 15 Private MD: Diagnosis: Mechanical fall, left hip contusion, hyperglycemia, known CKD Presentation: 09/13 12:47 Chief complaint: EMS states: fall this morning on left side that was already hurting. kj2 Coronavirus screen: Client denies travel out of the [place] in the last 14 days. Ebola Screen: No symptoms or risks identified at this time. Initial Sepsis Screen: Does the patient meet any 2 criteria? No. Patient's initial sepsis screen is negative. Does the patient have a suspected source of infection? No. Patient's initial sepsis screen is negative. Risk Assessment: Do you want to hurt yourself or someone else? Patient reports no desire to harm self or others. Onset of symptoms was September 13, 2024. 12:47 Method Of Arrival: EMS: [facility] kj2 12:47 Acuity: ALDO 3 kj2 Triage Assessment: 12:50 General: Appears in no apparent distress. Behavior is cooperative. Pain: Complains of kj2 pain in left hip Pain currently is 7 out of 10 on a pain scale. Neuro: Level of Consciousness is awake, alert, obeys commands, Oriented to person, place, time, situation. Cardiovascular: Patient's skin is warm and dry. Respiratory: Airway Respiratory effort is even, unlabored. GI: No signs and/or symptoms were reported involving the gastrointestinal system. : No signs and/or symptoms were reported regarding the genitourinary system. Historical: - Allergies: 12:50 Codeine; kj2 - Immunization history:: Adult Immunizations unknown. - Infectious Disease History:: Denies. - Social history:: Smoking status: unknown. Screenin:[facility] ED Fall Risk Assessment (Adult) History of falling in the last 3 months, kj2 including since admission Yes- single mechanical fall (1 pt) Confusion or Disorientation No (0 pts) Intoxicated or Sedated No (0 pts) Impaired Gait No (0 pts) Mobility Assist Device Used Yes (1 pt) Altered Elimination No (0 pt) Score/Fall Risk Level 3 or more points = High Risk Maintained a safe environment, Hourly rounding (assess needs \T\ fall precautionary measures) done, Utilized family, sitter, or virtual trading analyst as indicated. Abuse screen: Denies threats or abuse. Denies injuries from another. Nutritional screening: No deficits noted. Tuberculosis screening: No symptoms or risk factors identified. Assessment: 12:52 General: see triage assessment. kj2 14:00 Reassessment: Patient appears in no apparent distress at this time. Patient and/or kj2 family updated on plan of care and expected duration. Pain level reassessed. Patient is alert, oriented x 3, equal unlabored respirations, skin warm/dry/pink. 15:04 Reassessment: Patient appears in no apparent distress at this time. Patient and/or kj2 family updated on plan of care and expected duration. Pain level reassessed. Patient is alert, oriented x 3, equal unlabored respirations, skin warm/dry/pink. Vital Signs: 12:47 Resp 20; Temp 97.9; Pulse Ox 100% ; Weight 90.72 kg; Height 5 ft. 7 in. ; Pain 7/10; kj2 12:53 BP 159 / 59; Pulse 60; Resp 20; Temp 97.9; Pulse Ox 100% ; kj2 14:00 BP 158 / 62; Pulse 60; Resp 20; Pulse Ox 100% on R/A; kj2 15:00 BP 143 / 109; Pulse 64; Resp 18; Pulse Ox 100% ; kj2 15:47 BP 160 / 108; Pulse 65; Resp 20; Pulse Ox 100% ; kj2 16:46 BP 162 / 77; Pulse 68; Resp 20; Temp 97.9; Pulse Ox 100% ; kj2 12:47 Body Mass Index 31.32 (90.72 kg, 170.18 cm) kj2 12:47 Pain Scale: Adult kj2 ED Course: 12:46 Patient arrived in ED. kj2 12:46 Kyra Matthews RN is Primary Nurse. kj2 12:48 [facility] kb 12:48 Hong Stoddard MD is Attending Physician. kb 12:50 Triage completed. kj2 12:55 Arm band placed on Patient placed. kj2 12:55 Patient has correct armband on for positive identification. Bed in low position. Call kj2 light in reach. Adult w/ patient. Provided Education on: call light. 13:23 Hip Left 2 View XRAY In Process Unspecified. EDMS 13:58 Basic Metabolic Panel Sent. ss 13:58 CBC with Diff Sent. ss 13:58 LFT's Sent. ss 13:58 Magnesium Sent. ss 14:43 EKG done, by ED staff. tm3 14:49 Accessed peripheral vein via ultrasound, utilizing dynamic ultrasound technique using ss 20G Nexia IV catheter ,sterile technique, per hospital protocol. Clean \T\ dry. Dressing intact. 20 gauge L AC . Good blood return. Flushes easily. 15:34 CXR XRAY In Process Unspecified. EDMS 16:00 No provider procedures requiring assistance completed. IV discontinued, intact, kj2 bleeding controlled, No redness/swelling at site. Pressure dressing applied. Administered Medications: No medications were administered Medication: 12:54 VIS not applicable for this client. kj2 Outcome: 15:57 Discharge ordered by . sp3 16:47 Discharged to home via wheelchair, kj2 16:47 Condition: stable 16:47 Condition: stable 16:47 Discharge instructions given to patient, Instructed on discharge instructions, follow up and referral plans. Demonstrated understanding of instructions, follow-up care, 16:47 Patient left the ED. kj2 Signatures: Dispatcher [employer] EDMS Karon Cook, IDENTIFICATION PRINTING MACHINE SETTER-C IDENTIFICATION PRINTING MACHINE SETTER-Darrian Womack tm3 Saloni Franks, RN RN Hong Stoddard MD MD sp3 Kyra Matthews, SHAWN RN kj2
[2024-09-13 16:53] VITALS: TEMP 97.9; O2SAT 100
[2024-09-13 16:59] VITALS: BP 162/77
--- NOTE | 2024-09-13 18:16 | RAD REPORT ---
EXAMINATION: ONE VIEW CHEST XR CLINICAL INDICATION: Female, 73 years old.,Elevated BNP TECHNIQUE: Frontal chest projection is submitted. Examination is limited by patient positioning and t echnique. COMPARISON: 07/28/2021 FINDINGS: The lungs are grossly clear of focal infiltrates although suboptimal inspiratory effort somewhat limi ts evaluation. Central interstitial prominence probably relates to vascular crowding. Left basilar hazy opacification, favored to relate to atelectasis No pneumothorax or sizable effusion. The heart i s normal in size. Mediastinal contours are unremarkable. IMPRESSION: Left basilar hazy opacification favored to relate to atelectasis. No other acute findings.
== END 2024-09-13 16:47 | disposition home or self-care (01) ==
LOC: ER 12:39
DX: S70.02XA Contusion of left hip, initial encounter (principal); W18.30XA Fall on same level, unspecified, initial encounter; Y92.009 Unspecified place in unspecified non-institutional (private) residence as the place of occurrence of the external cause; E11.22 Type 2 diabetes mellitus with diabetic chronic kidney disease; E11.65 Type 2 diabetes mellitus with hyperglycemia; N18.9 Chronic kidney disease, unspecified
CPT/HCPCS: 36415; 71045; 80048; 80076; 83735; 83880; 84484; 85025; 93005; 99284